=== PATIENT | female | born 1940 ===

== ENCOUNTER 2016-09-12 00:43 | Inpatient (IN) ==
[2016-09-12] MEDS ORDERED: ONDANSETRON 4 MG/2 ML VIAL IV STA (01:12)
[2016-09-12] MEDS ORDERED: methylPREDNISolone SOD SUC 125 MG/2 ML VIAL IV STA (01:12)
[2016-09-12] MEDS ORDERED: FUROSEMIDE 100 MG/10 ML VIAL IV STA (01:12)
[2016-09-12] MEDS ORDERED: ALBUTEROL/IPRATROPIUM 3 ML NEB RESP TX STA (01:12)
--- NOTE | 2016-09-12 01:34 | Emergency Department Note ---
ICristian Emily, am scribing for, and in the presence of, Issac Prather MD 01: 19. Crescencio Saunders Charles R, MD, personally performed the services described in this documentation, ascribed by Nubia Foster in my presence, and it is both accurate and complete . Arrival - Arrival Chief Complaint: Shortness of Breath Stated Complaint: shortness of breath ED Nursing Triage Note: pt transfered from [facility] for further evaluation of elevated troponin and SOB. O2 sat 98% on RA on arrival. pt denies CP on arrival. Pt was recently Dx with UTI with e-coli noted in urine and started on Levaquin PO today. O2 2L/nc applied for comfort. Mode of Arrival: Stretcher Limitations: Altered Mental Status Source: RN Notes Reviewed Time Seen by Provider: 09/12/16 00:51 - History of Present Illness HPI Narrative: Pt is a 76 y/o female who was transferred from [place] for further evaluation of elevated troponin and SOB. Pt's O2 sat 98% on room air on arrival. Pt denies chest pain. Pt was recently Dx with UTI with e-coli noted in urine and started on Levaquin PO today. Pt's creatnine looks good. PMHx of dementia. Onset (ago): hour(s) Consistency: constant Severity: moderate Severity scale (1-10): 5 Allergies/Adverse Reactions: Allergies Allergy/AdvReac Type Severity Reaction Status Date / Time No Known Allergies Allergy Unverified 09/12/16 01:01 Review of System - Review of System ROS unobtainable: due to mental status, due to dementia Medical,Surgical,& Family Hx - Medical History Cardio: History of: Hypertension Neurology: History of: Dementia Endocrine: History of: Diabetes Mellitus (IDDM) Respiratory: History of: Pulmonary Hypertension Genitourinary: History of: Recurring Urinary Tract Infections Musculoskeletal: History of: Musculoskeletal Problems (arthritis) Reproductive: History of: Breast Cancer (left) - Social History Smoking Status: Never smoker Frequency of Alcohol Use: None Type of Drug Use: None Exam Vital Signs: Vital Signs Temperature 98.0 F 09/12/16 00:47 Pulse Rate 64 09/12/16 01:00 Respiratory Rate 22 09/12/16 01:00 Blood Pressure 156/65 09/12/16 00:47 O2 Sat by Pulse Oximetry 98 09/12/16 00:47 - General General appearance: alert, in no apparent distress - Head Head exam: Present: atraumatic, normocephalic - Eye Eye exam: Present: PERRL, EOMI - ENT ENT exam: Present: mucous membranes moist. Absent: mucous membranes dry - Neck Neck exam: Present: full ROM. Absent: tenderness - Chest Chest inspection: Present: symmetric chest wall rise. Absent: tenderness - Respiratory Respiratory exam: Present: rales (bilateral), respiratory distress, rhonchi ( bilateral). Absent: normal lung sounds bilaterally - Cardiovascular Cardiovascular exam: Present: regular rate, normal rhythm, normal heart sounds - Extremities Exam Extremities exam: Absent: tenderness, pedal edema - Neurological Exam Neurological exam: Present: alert, CN II-XII intact, other (pleasantly confused at nml baseline). Absent: oriented X3, motor sensory deficit - Skin Skin exam: Present: warm, dry Course - Consultations Consultation #1: Hospitalist will admit patient Time: 01:32 Results - Labs Lab Results: I have reviewed the patients labs Labs: All previous labs reviewed from previous facility Critical Care Time Critical Care Time: Yes Total Critical Care Time: 60 Disposition Clinical Impression: Congestive heart failure, Acute exacerbation of chronic obstructive airways disease, Elevated troponin, UTI (urinary tract infection) Case discussed with: patient Disposition: Still a Patient Condition: Stable Time of Disposition: 01:31
[2016-09-12] MEDS ORDERED: ONDANSETRON 4 MG/2 ML VIAL ONE (01:39)
[2016-09-12] MEDS ORDERED: methylPREDNISolone SOD SUC 125 MG/2 ML VIAL ONE (01:39)
[2016-09-12] MEDS ORDERED: FUROSEMIDE 100 MG/10 ML VIAL ONE (01:39)
[2016-09-12 02:24] LABS: Basophils % 0.1 % (0.0-0.8); Eosinophils # 0.2 10*3/uL (0.0-0.87); Eosinophils % 2.2 % (0.00-10.9); Hematocrit 37.4 VOL% (35.7-47.0); Hemoglobin 11.7 GM/DL (12.0-16.0); Immature Granulocytes % 0.7 %; Immature Granulocytes Absolute 0.05 #; Lymphocytes # 1.2 10*3/uL (1.4-4.0); Lymphocytes % 17.1 % (21.3-54.2); Mean Corpuscular HGB Conc 31.3 GM/DL (32-36); Mean Corpuscular Hemoglobin 27 PG (27-34); Mean Corpuscular Volume 87.2 FL (87-102); Mean Platelet Volume 12.2 FL (9.6-12.0); Monocytes # 0.3 10*3/uL (0.11-0.8); Monocytes % 4.7 % (1.7-12.7); Neutrophils # 5.5 10*3/uL (1.4-7.4); Neutrophils % 75.2 % (38.7-73.9); Platelet Count 133 T/CUMM (130-400); Red Blood Count 4.29 MC/CUMM (3.8-5.5); Red Cell Distribution Width 16.1 % (9.3-17.3); White Blood Count 7.3 T/CUMM (4-12)
[2016-09-12 02:31] LABS: INR 1.1; PT Patient Result 11.5 SECS
[2016-09-12 02:32] LABS: Alanine Aminotransferase 95 U/L (13-56); Albumin 2.5 G/DL (3.4-5.0); Alkaline Phosphatase 174 U/L (45-117); Aspartate Amino Transferase 60 U/L (0-37); Bilirubin,Total < 0.39 MG/DL (0.2-1.0); Blood Urea Nitrogen 36 MG/DL (7-18); Calcium 9.7 MG/DL (8.5-10.1); Glucose 238 MG/DL (74-106); Magnesium 1.9 MG/DL (1.8-2.4); Osmolality,Calculated 296.3 MOS/KG (273-304); Potassium 3.7 MMOL/L (3.5-5.1); Sodium 141 MMOL/L (136-145); Total Protein 6.1 G/DL (6.4-8.3); Troponin I Only 0.032 NG/ML (0.00-0.045)
--- NOTE | 2016-09-12 03:11 | Hospitalist History & Physical ---
Assessment and Plan (1) Congestive heart failure Status: Acute Assessment and plan: I am concerned this could be secondary to either myocardial injury or acute coronary syndrome. Patient does have an elevated troponin. Serial troponins will be drawn she has been started on the full dose of Lovenox already and will continue check lipid panel in the morning consult cardiology on this case. We will obtain an echocardiogram to evaluate chamber status valvular status wall motion and left ventricular function. Repeat EKG in the morning. Current Visit: Yes (2) Acute exacerbation of chronic obstructive airways disease Status: Acute Assessment and plan: Continue bronchodilators and ipratropium bromide. Continue systemic steroids as ordered. Home medications are being reviewed and reconciled Current Visit: Yes (3) Elevated troponin level Status: Acute Assessment and plan: Check serial troponins. Attend to the orders for cardiac evaluation. Current Visit: Yes (4) Urinary tract infection Status: Acute Assessment and plan: Reportedly this was documented I took 2. However I am not apprised as to the information from they at this point. Documents were noted scanned into the computer. Emergency room sodium and he has continued the antibiotics of levofloxacin. Keep a close eye on the heart rhythm. Repeat UA in 48 hours. Current Visit: Yes History of Present Illness Chief complaint: Transfer from [place] [facility] elevated troponin History of present illness: Ms. Rausch is a 76 year old female who was transferred from [place] for further evaluation of elevated troponin and SOB. Pt's O2 sat 98% on room air on arrival. Pt denies chest pain. Pt was recently Dx with UTI with e-coli noted in urine and started on Levaquin PO today. Pt's creatnine looks good. PMHx of dementia. Patient looks tired and only significant tells me that she feels hungry. Denies any chest pain. Looks rather dehydrated with skin that is tenting. Is congested cough however with the production. Chest x-ray shows presence of a pacemaker on the right side one lead is in the ventricle I cannot define where the other leads and is however. Report of the chest x-ray is pending. EKG shows beats Allergies Allergy/AdvReac Type Severity Reaction Status Date / Time No Known Allergies Allergy Unverified 09/12/16 01:01 Medical,Surgical,& Family Hx - Medical History Cardio: History of: Hypertension Neurology: History of: Dementia Endocrine: History of: Diabetes Mellitus (IDDM) Respiratory: History of: Pulmonary Hypertension Genitourinary: History of: Recurring Urinary Tract Infections Musculoskeletal: History of: Musculoskeletal Problems (arthritis) Reproductive: History of: Breast Cancer (left) - Social History Smoking Status: Never smoker Frequency of Alcohol Use: None Type of Drug Use: None ROS unobtainable: due to dementia (On review of records it appears there is concern of possibility of non-ST elevation myocardial infarction possible pulmonary edema. Patient did receive some Lasix in normal emergency room. She does not have a Santizo catheter she is incontinent therefore does not know what response she did have. Also received some Solu-Medrol because she was wheezing at presentation) Exam - Constitutional General appearance: normal weight, other (Generalized weakness) - Head Head exam: Present: normocephalic, atraumatic - Eye Eye exam: Present: EOMI Pupils: Present: CESAR - ENT ENT exam: Present: normal oropharynx (Relative dry mucosa noted) - Neck Neck exam: Present: other (Neck is supple no jugular venous distention) - Respiratory Respiratory exam: Present: other (Bilateral crackles noted she was not wheezing at my assessment) - Cardiovascular Cardiovascular exam: Present: regular rate and rhythm (Regular rhythm with 100% paced beats on EKG) - GI/Abdominal GI/Abdominal exam: Present: normal bowel sounds, soft - Extremities Exam Extremities exam: Present: full ROM - Neurological Exam Neurological exam: Present: alert, oriented X3, CN II-XII intact - Psychiatric Psychiatric exam: Present: other (Subdued affect but she is able to answer questions) - Skin Skin exam: Present: normal color, warm, other (IC tenting of the skin and am concerned about possibility of dehydration however this could be exaggerated by cutis laxa of old age) Results - Labs CBC & BMP: 09/12/16 01:41 09/12/16 01:41 Lab Results: I have reviewed the past 24 hour labs (First troponin is 0.032 creatinine 1.0 I do not have a BNP; BUN of 36 with creatinine of 1 (pre-renal azotemia); appears document from the other institution were not scanned.)
[2016-09-12] MEDS ORDERED: MORPHINE 2 MG/1 ML SYRINGE IV PRN (04:12)
[2016-09-12] MEDS ORDERED: ALBUTEROL/IPRATROPIUM 3 ML NEB RESP TX PRN (04:12)
[2016-09-12] MEDS ORDERED: DEXTROSE 50% 25 GM/50 ML VIAL IV PRN (04:12)
[2016-09-12] MEDS ORDERED: GLUCAGON 1 MG VIAL IM PRN (04:12)
[2016-09-12] MEDS ORDERED: ONDANSETRON 4 MG/2 ML VIAL IV PRN (04:12)
[2016-09-12] MEDS ORDERED: ENOXAPARIN 40 MG/0.4 ML SYRINGE SUBCUT SCH (04:12)
[2016-09-12] MEDS: SODIUM CHLORIDE 0.9% 1,000 ML IV SCH (06:10)
[2016-09-12] MEDS: LEVOFLOXACIN INJ 500 MG in PREMIX 1 EACH IV SCH (06:10)
[2016-09-12] MEDS: NITROGLYCERIN 2% OINT 1 INCH/GM PACK TOP SCH ×3 (06:11→17:13)
[2016-09-12 07:05] LABS: Troponin I Only 0.025 NG/ML (0.00-0.045)
[2016-09-12 07:07] LABS: Troponin I Only 0.024 NG/ML (0.00-0.045)
--- NOTE | 2016-09-12 07:22 | XRay Report ---
Referring Physician: Issac Prather Exam: XR chest 1V portable Date: September 12, 2016 at 1:26 AM Reason: Shortness of breath Comparison: Chest single view September 11, 2016 Findings: The cardiac silhouette is again enlarged, and a cardiac pacing device is in place. There is prominent calcified plaque at the aortic arch. The interstitial markings are prominent, and there are mild bibasilar opacities. This is concerning for mild pulmonary edema and atelectasis, but superimposed pneumonia is not excluded at the right lung base. No pneumothorax or pleural effusion is identified. No acute osseous process is seen. Impression: 1. Cardiomegaly. 2. The interstitial markings are prominent, and there are mild bibasilar opacities. This likely represents mild pulmonary edema and atelectasis, but pneumonia is not excluded at the right lung base. PROCEDURE INTERPRETED AT [facility] DEPARTMENT OF RADIOLOGY Final Report Signed by: Dr. Cyndi Tinsley
--- NOTE | 2016-09-12 09:28 | EKG Report ---
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
[2016-09-12] MEDS: ENOXAPARIN 100 MG/ML SYRINGE SUBCUT SCH ×2 (09:43→22:13)
[2016-09-12] MEDS: PANTOPRAZOLE 40 MG TABLET PO SCH (09:43)
[2016-09-12] MEDS: FUROSEMIDE 40 MG/4 ML VIAL IV SCH ×2 (09:43→17:13)
[2016-09-12] MEDS: ASPIRIN EC 81 MG TABLET PO SCH (09:43)
[2016-09-12] MEDS: INSULIN REGULAR 100 UNIT/ML SUBCUT SCH ×4 (09:44→22:14)
[2016-09-12] MEDS: methylPREDNISolone SOD SUC 40 MG/1 ML VIAL IV SCH ×2 (09:44→17:13)
--- NOTE | 2016-09-12 16:04 | ECHO Report ---
Shahla Rausch Exam Date: 09/12/2016 10:12 Referring Physician: Technologist: Aga Braga RDCS Age: 76 Ht (in): 56 Wt (lb): 170 Gender: F Exam Location: [facility] Echo Indications: Heart failure, unspecified, COPD, UTI, Elevated troponin, Shortness of breath, Essential (primary) hypertension, IDDM, Weakness, hx Breast CA BP: 168 / 72 HR: 60 Rhythm: Atrial flutter Technical Quality: IMPRESSIONS Left ventricular ejection fraction is estimated at 50 %. Mild left ventricular hypertrophy. Mild bilateral atrial enlargement. Mild mitral annular calcification and mild mitral leaflet thickening with mild mitral regurgitation. Mild aortic valve sclerosis mild aortic valve regurgitation. Gqwd-ab-ybkbchwm tricuspid valve regurgitation. MEASUREMENTS (Male / Female) Normal Values 2D ECHO LV Diastolic Diameter PLAX 4.3 cm 4.2 - 5.9 / 3.9 - 5.3 cm LV Systolic Diameter PLAX 3.3 cm LV Fractional Shortening PLAX 22.8 % IVS Diastolic Thickness 1.1 cm 0.6 - 1.0 / 0.6 - 0.9 cm LVPW Diastolic Thickness 1.1 cm 0.6 - 1.0 / 0.6 - 0.9 cm RV Internal Dim ED PLAX 3.0 cm Aortic Root Diameter 3.5 cm LA Systolic Diameter LX 3.9 cm 3.0 - 4.0 / 2.7 - 3.8 cm DOPPLER TR Peak Velocity 285.0 cm/s TR Peak Gradient 32.5 mmHg FINDINGS Left Ventricle Normal left ventricular cavity size. Mild left ventricular hypertrophy. Left ventricular ejection fraction is estimated at 50 %. Right Ventricle Normal right ventricular size. Catheter/pacemaker wire visualized in the right ventricle. Right Atrium The right atrium is mildly enlarged. Catheter/pacemaker wire in the right atrial cavity. Left Atrium The left atrium is mildly enlarged. Mitral Valve Thickened mitral valve. Mild mitral annular calcification. Mild mitral valve regurgitation. Aortic Valve Mild aortic valve sclerosis mild aortic valve regurgitation. Tricuspid Valve Morphologically normal tricuspid valve. Qupy-zl-cthggtbj tricuspid valve regurgitation. Tricuspid regurgitation velocities suggest a PAP of 42 mmHg. Pulmonic Valve Morphologically normal pulmonic valve without significant stenosis. There is no pulmonic regurgitation. Pericardium Normal pericardium without effusion. Aorta Normal ascending aorta dimension. Jose Lam (Electronically Signed) Final Date: 12 Sep 2016 16:03
--- NOTE | 2016-09-12 16:30 | EKG Report ---
Stationary ECG Study 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
[2016-09-13] MEDS: methylPREDNISolone SOD SUC 40 MG/1 ML VIAL IV SCH ×3 (04:15→17:14)
[2016-09-13] MEDS: LEVOFLOXACIN INJ 500 MG in PREMIX 1 EACH IV SCH (04:16)
[2016-09-13] MEDS: NITROGLYCERIN 2% OINT 1 INCH/GM PACK TOP SCH ×4 (04:21→17:15)
[2016-09-13 04:43] LABS: Basophils % 0.1 % (0.0-0.8); Eosinophils % 0.1 % (0.00-10.9); Hematocrit 32.6 VOL% (35.7-47.0); Hemoglobin 10.5 GM/DL (12.0-16.0); Immature Granulocytes % 0.8 %; Lymphocytes # 1.2 10*3/uL (1.4-4.0); Mean Corpuscular HGB Conc 32.2 GM/DL (32-36); Mean Corpuscular Hemoglobin 28 PG (27-34); Mean Corpuscular Volume 85.6 FL (87-102); Mean Platelet Volume 12.3 FL (9.6-12.0); Monocytes # 0.7 10*3/uL (0.11-0.8); Monocytes % 5.7 % (1.7-12.7); Neutrophils # 9.8 10*3/uL (1.4-7.4); Neutrophils % 83.3 % (38.7-73.9); Platelet Count 148 T/CUMM (130-400); Red Blood Count 3.81 MC/CUMM (3.8-5.5); Red Cell Distribution Width 16.4 % (9.3-17.3); White Blood Count 11.8 T/CUMM (4-12)
[2016-09-13 05:18] LABS: Albumin 2.5 G/DL (3.4-5.0); Bilirubin,Total 0.5 MG/DL (0.2-1.0); Calcium 9.5 MG/DL (8.5-10.1); Magnesium 1.9 MG/DL (1.8-2.4); Potassium 3.7 MMOL/L (3.5-5.1); Risk Ratio 2.32; Total Protein 5.4 G/DL (6.4-8.3); VLDL CHOLESTEROL 30.2 MG/DL
--- NOTE | 2016-09-13 08:37 | XRay Report ---
Referring Physician: Issac Prather Exam: XR chest 1V portable Date: September 13, 2016 at 6:21 AM Reason: Shortness of breath Comparison: Chest one view portable September 12, 2016 Findings: The cardiac silhouette is again enlarged, and a cardiac pacing device is again in place with the battery pack at the right chest wall. There is also a left-sided cardiac lead, likely from a previous pacemaker. The interstitial markings are slightly prominent bilaterally, which is concerning for minimal pulmonary edema. No pneumothorax is identified. No acute osseous process is seen. Impression: 1. Cardiomegaly. 2. There is improved aeration of the right lung base, but there is suggestion of minimal pulmonary edema. PROCEDURE INTERPRETED AT [facility] DEPARTMENT OF RADIOLOGY Final Report Signed by: Dr. Cyndi Tinsley
[2016-09-13] MEDS: FUROSEMIDE 40 MG/4 ML VIAL IV SCH ×2 (08:59→17:14)
[2016-09-13] MEDS: ENOXAPARIN 100 MG/ML SYRINGE SUBCUT SCH ×2 (08:59→21:16)
[2016-09-13] MEDS: INSULIN REGULAR 100 UNIT/ML SUBCUT SCH ×4 (09:00→21:16)
[2016-09-13] MEDS: ASPIRIN EC 81 MG TABLET PO SCH (09:00)
[2016-09-13] MEDS: PANTOPRAZOLE 40 MG TABLET PO SCH (09:00)
[2016-09-13] MEDS ORDERED: ALBUTEROL 1.25 MG/3 ML NEB RESP TX PRN (09:31)
[2016-09-13] MEDS ORDERED: DOCUSATE/SENNA 50-8.6 MG TABLET PO PRN (09:31)
[2016-09-13] MEDS ORDERED: MIRTAZAPINE 15 MG TABLET PO PRN (09:31)
[2016-09-13] MEDS ORDERED: GABAPENTIN 100 MG CAPSULE PO PRN (09:31)
--- NOTE | 2016-09-13 09:37 | Cardiology Consult Note ---
[facility] Vanessa, RN, am scribing for, and in the presence of, Jose Lam MD 09:36. Assessment and Plan - Time spent with patient Time spent with patient: Greater than 30 minutes (due to assessment, planning, documentation, medication review) (1) Dementia Status: Acute Current Visit: Yes (2) Urinary tract infection Status: Acute Assessment and plan: History of recurrent UTI. She has had a recent urine culture positive for E. coli, and she has been started on Levaquin 10 days. Defer primary management of this to hospital medicine. Current Visit: Yes (3) Congestive heart failure Status: Acute Assessment and plan: Mildly elevated BNP level 312. Echocardiogram with mild LVH and LV ejection fraction 50%, mild to moderate TR and pulmonary hypertension with a PA pressure of 42 mmHg. clinically she seems well compensated. Current Visit: Yes (4) Troponin I above reference range Status: Acute Assessment and plan: She has normal troponin levels and no obvious symptoms of ischemia. Given her degree of dementia and lack of acute EKG changes I don't think I would pursue any additional cardiac workup right now. Current Visit: Yes (5) Atrial fibrillation Status: Chronic Assessment and plan: This is chronic and stable. Current Visit: Yes (6) Hypertension Status: Chronic Assessment and plan: Pressure is suboptimally controlled. Will need medication adjustments. Current Visit: Yes History of Present Illness - Data of Consult Patient: known to practice within the last 3 years Consult date: 09/12/16 Requesting Physician: Leland Mary Primary care physician: [facility] - Consult Narrative Reason for consult: CHF, abnormal CTNI History of present illness: PRIMARY STATION SUPERINTENDENT: DR. ELIGIO PARKER PCP: [facility] Ms. Rausch is a 76 year old female resident of [facility] skilled nursing. Past medical history includes hypertension, diabetes, tachybradycardia syndrome status post single-chamber pacemaker implant , atrial fibrillation, chronic anticoagulation, valvular disease, pulmonary hypertension, peripheral neuropathy, and Alzheimer's dementia. Patient was transferred from [facility] to [facility] ER on the morning of 09/12/16 for further evaluation of shortness of breath and troponin level of 0.12. At [facility], it was reported that she had coarse breath sounds, wheezing, and use of accessory muscles. Apparently, she has had a recent urine culture positive for E. coli, and she was started on Levaquin for UTI. Patient was in no acute distress with SPO2 of 98% on room air. Chest x- ray with prominent interstitial markings and mild bibasilar opacities suggestive of mild pulmonary edema and/or r atelectasis, but pneumonia at right lung base could not be excluded. Patient was admitted to telemetry per hospital medicine for further observation and treatment. Lab work at [facility] has revealed BNP of 312 and normal troponin level (0.032, 0.024). Cardiology has been consulted to evaluate for congestive heart failure and abnormal troponin levels. Ms. Rausch has significant dementia, does not conversation much, and she is a very poor historian. There is no family present at time of exam and interview. ROS unobtainable. She she is awake and alert, sitting on chicken broth, and she does not appear to be in any acute distress. When I asked her if she has experienced any recent or current chest pain, patient points to her chest and says "no hurt". Echocardiogram has been obtained, and we will review this. Currently wearing Nitro-Bid patch to left chest. She has been started on IV Lasix therapy, and a Santizo catheter has recently been placed to closely monitor I/O. She is also receiving nebulizer treatments, IV Solu-Medrol, and IV Levaquin. Per inspector chief, she is ventricularly pacing and appears to have underlying atrial flutter. Systolic blood pressure averaging 140-190 mmHg. Current BP 138/51. Labs reviewed. As above. WBC 7300. H&H stable 11.7 and 37.4 with a platelet count of 133,000 (old records indicate history of thrombocytopenia). Creatinine is 1 with a GFR of 52. Glucose levels greater than 200. Current Medications Albuterol/Ipratropium (Duoneb) 3 ml RESP TX RT Q4H PRN PRN Reason: Shortness of Breath/Wheezing Aspirin () 81 mg PO DAILY [facility] Last Admin: 09/12/16 09:43 Dose: 81 mg Dextrose/Water (D50) 25 gm IV PRN PRN PRN Reason: Hypoglycemia with IV access Enoxaparin Sodium (Lovenox) 80 mg 1 mg/kg (80 mg) SUBCUT Q12H [facility] Last Admin: 09/12/16 09:43 Dose: 80 mg Furosemide (Lasix Inj) 40 mg IV BID DIURETIC [facility] Last Admin: 09/12/16 09:43 Dose: 40 mg Glucagon () 1 mg IM PRN PRN PRN Reason: Hypoglycemia w/o IV access Levofloxacin/Dextrose 500 mg/ (Premix) 100 mls @ 100 mls/hr IV Q24H [facility] Last Infusion: 09/12/16 07:19 Dose: Infused Sodium Chloride (Ns) 1,000 mls @ 35 mls/hr IV .Q24H [facility] Last Admin: 09/12/16 06:10 Dose: 35 mls/hr Insulin Human Regular (Humulin R) 0 unit SUBCUT ACHS [place] PRN Reason: Protocol Last Admin: 09/12/16 14:33 Dose: Not Given Methylprednisolone Sodium Succinate (Solumedrol) 40 mg IV Q8H [facility] Last Admin: 09/12/16 09:44 Dose: 40 mg Morphine Sulfate () 2 mg IV Q4H PRN PRN Reason: Pain Severe (8-10) Nitroglycerin (Nitro Bid Oint) 0.5 inch TOP Q6HR [facility] Last Admin: 09/12/16 13:33 Dose: 0.5 inch Ondansetron HCl (Zofran Inj) 4 mg IV Q4H PRN PRN Reason: Nausea Pantoprazole Sodium (Protonix Tab) 40 mg PO DAILY [facility] Last Admin: 09/12/16 09:43 Dose: 40 mg CC: Cy Hodges MD - Home Medications and Allergies Home Medications: Home Medications Medication Instructions Recorded Confirmed Type Albuterol Neb [Proventil Neb] 1.25 mg RESP TX Q4H PRN 09/12/16 09/12/16 History Calcium Carbonate/Vitamin D3 1 each PO BID 09/12/16 09/12/16 History [Calcium 600 + Vit D Tablet] Carvedilol [Coreg] 12.5 mg PO BID 09/12/16 09/12/16 History Cholecalciferol (Vitamin D3) 50,000 unit PO MO 09/12/16 09/12/16 History [Vitamin D3] Docusate/Senna 50-8.6 [Senokot S] 2 tablet PO BEDTIME PRN 09/12/16 09/12/16 History Dorzolamide/Timolol Oph Soln 1 drop BOTH EYES BID 09/12/16 09/12/16 History [Cosopt] Furosemide 20 mg PO DAILY 09/12/16 09/12/16 History Gabapentin 100 mg PO BEDTIME PRN 09/12/16 09/12/16 History Insulin Detemir [Levemir] 20 units SUBCUT BEDTIME 09/12/16 09/12/16 History Insulin Lispro [HumaLOG] 10 units SUBCUT AC 09/12/16 09/12/16 History Latanoprost 0.005% Oph Soln 1 drop BOTH EYES BEDTIME 09/12/16 09/12/16 History [Xalatan 0.005% Oph Soln] Lisinopril 20 mg PO DAILY 09/12/16 09/12/16 History Mirtazapine [Remeron] 15 mg PO BEDTIME PRN 09/12/16 09/12/16 History Oxybutynin [Ditropan] 5 mg PO DAILY 09/12/16 09/12/16 History Sertraline [Zoloft] 100 mg PO DAILY 09/12/16 09/12/16 History Simvastatin 10 mg PO BEDTIME 09/12/16 09/12/16 History Tamoxifen Tab [Nolvadex] 10 mg PO BID 09/12/16 09/12/16 History amLODIPine [Norvasc] 10 mg PO DAILY 09/12/16 09/12/16 History levoFLOXacin [Levaquin] 250 mg PO DAILY 09/12/16 09/12/16 History metFORMIN [Glucophage] 500 mg PO BID W/MEALS 09/12/16 09/12/16 History predniSONE TAB [PredniSONE] 20 mg PO DAILY 09/12/16 09/12/16 History raNITIdine HCl [Ranitidine HCl] 150 mg PO BEDTIME PRN 09/12/16 09/12/16 History Allergies/Adverse Reactions: Allergies Allergy/AdvReac Type Severity Reaction Status Date / Time No Known Allergies Allergy Unverified 09/12/16 01:01 ROS unobtainable: due to dementia Medical,Surgical,& Family Hx - Medical History Cardio: History of: Cardiac Dysrhythmia, Hypertension, Pacemaker (Right chest), Valvular Heart Disease No history of: RI Psychological: History of: Anxiety Disorders, Depression Neurology: History of: Dementia No history of: Cerebrovascular Accident, Seizures, TIA Endocrine: History of: Diabetes Mellitus (IDDM), Dyslipidemia No history of: Thyroid Disorder Respiratory: History of: COPD, Pulmonary Hypertension Genitourinary: History of: Recurring Urinary Tract Infections Gastrointestinal: History of: GERD Musculoskeletal: History of: Musculoskeletal Problems (arthritis) Hematology: History of: Anemia No history of: Blood Transfusion Reaction Reproductive: History of: Breast Cancer (left) Other: No history of: Cancer - Surgical History Neurologic Surgeries: Patient denies: Neurologic Surgery - Social History Smoking Status: Never smoker Frequency of Alcohol Use: None Type of Drug Use: None Physical Examination Vital Signs Temp Pulse Resp BP Pulse Ox 98.0 F 64 22 156/65 98 09/12/16 00:47 09/12/16 00:47 09/12/16 00:47 09/12/16 00:47 09/12/16 00:47 General: Present: No Apparent Distress, Other (Appears chronically ill) HEENT: Present: PERRL, Normocephaly, Mucus Membranes Dry. Absent: Jaundice, Pallor Neck: Present: Supple Neck, Midline Trachea Cardiac: Present: Reg Rate and Rhythm. Absent: Tachycardia, Bradycardia Lungs: Present: Bibasilar Rales (Minimal). Absent: Oxygen Neuro: Present: Weakness, Grossly Intact. Absent: Numbness, Essential Tremor Abdomen: Present: Soft, Active Bowel Sounds. Absent: Ascites, Tender, Firm Skin: Present: Bruising (Mild ecchymotic bruising). Absent: Rash, Suspicious Lesions Musculoskeletal: Present: Decreased Range of Motion, No Fluid Collection Extremities: Present: No Clubbing, No Cyanosis, No Edema, Normal Upper Extr. Pulses (2-3+ bilaterally), Normal Lower Extr. Pulses (2-3+ bilateral), Capillary Refill (Normal) Result/EKG - Labs CBC & BMP: 09/13/16 04:16 09/13/16 04:16 Lab Results: I have reviewed the past 24 hour labs Labs: Laboratory Results - last 24 hr 09/12/16 09/12/16 09/12/16 05:58 05:58 07:02 POC Glucose 245 H Total Creatine Kinase 22 L 43 CK-MB (CK-2) 1.4 1.7 Troponin I 0.025 0.024 09/12/16 09/12/16 08:36 11:29 POC Glucose 243 H 221 H Total Creatine Kinase CK-MB (CK-2) Troponin I - Diagnostic Findings Procedure: Chest x-ray: image reviewed by me, report reviewed by me - EKG EKG results: interpreted by me (ventricularly paced rhythm) I, Jose Lam MD, personally performed the services described in this documentation, ascribed by Gabby Saab RN in my presence, and it is both accurate and complete .
--- NOTE | 2016-09-13 09:38 | Hospitalist Progress Note ---
Assessment and Plan (1) Acute exacerbation of chronic obstructive airways disease Status: Acute Current Visit: Yes (2) Congestive heart failure Status: Acute Assessment and plan: We will continue with diuretics and attempt to improve the patient shortness of breath. The patient is receiving IV antibiotics. Current Visit: Yes (3) Dementia Status: Chronic Current Visit: Yes Hospitalist: Subjective Interval history: The patient is admitted to the floor with some anxiety and shortness of breath. She is a resident at [facility]. The patient was admitted and diuresis was begun chest x-ray shows evidence of pulmonary edema and troponin had kan zone elevation. The patient does not complain of chest pain or palpitations at this time. Exam - Constitutional Vitals: Period Temp Pulse Resp BP Sys/Chang Pulse Ox Last 24 Hr 96.8 F-99.2 F 58-84 16-20 131-199/51-85 88-96 Exam: Constitutional System: Mild distress. Bewildered appearance Head: Normocephalic, atraumatic. Ears, Nose and Throat System: No evidence of Otitis or Mastoiditis. No epistaxis or discharge Eyes System: Pupils equal, round, and reactive. Extraocular muscles intact. Neck: Supple, without adenopathy, trace jugular venous distention. No thyromegaly, neck mass, or prior surgery apparent. Respiratory System: Chest clear to auscultation. Left mastectomy Cardiovascular System: Heart with regular rate and rhythm. No murmur. GI System: Abdomen soft, nontender. Normo active bowel sounds present. Musculoskeletal System: limbs with trace pedal edema. Full distal pulses. Neurological System: No discernable sensory deficit. No aphasia Psychiatric System: Conversation is confused Results - Labs CBC & BMP: 09/13/16 04:16 09/13/16 04:16 Lab Results: I have reviewed the past 24 hour labs
[2016-09-13] MEDS: CARVEDILOL 12.5 MG TABLET PO SCH ×2 (09:50→21:15)
[2016-09-13] MEDS: SODIUM CHLORIDE 0.9% 1,000 ML IV SCH (10:05)
[2016-09-13] MEDS: DORZOLAMIDE/TIMOLOL OPH SOLN 10 ML BOTTLE BOTH EYES SCH ×2 (11:50→21:15)
--- NOTE | 2016-09-13 11:53 | Cardiology Progress Note ---
[facility] Vanessa, RN, am scribing for, and in the presence of, Jose Lam MD 11:52. Assessment and Plan - Time spent with patient Time spent with patient: Greater than 30 minutes (1) Dementia Status: Chronic Assessment and plan: Known history Alzheimer's dementia. Today she is more alert, appropriate, but she is pleasantly confused. Current Visit: Yes (2) Congestive heart failure Status: Acute Assessment and plan: Mildly elevated BNP level 312. Echocardiogram with mild LVH and LV ejection fraction 50%, mild to moderate TR and pulmonary hypertension with a PA pressure of 42 mmHg. Clinically, patient appears to remain well compensated. Current Visit: Yes (3) Troponin I above reference range Status: Acute Assessment and plan: Troponin levels and normal and EKG without ischemic finding. Given patient's significant degree of dementia and lack of EKG change, I do not feel it necessary to pursue additional cardiac workup at this time. Current Visit: Yes (4) Urinary tract infection Status: Acute Assessment and plan: History of recurrent UTI. She has had a recent urine culture positive for E. coli, and she has been started on Levaquin 10 days. Defer primary management of this to hospital medicine. Current Visit: Yes (5) Atrial fibrillation Status: Chronic Assessment and plan: This is chronic and stable. Current Visit: Yes (6) Hypertension Status: Chronic Assessment and plan: Blood pressure with some improvement today. Beta helen therapy resumed today. 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 Rausch is a 76 year old female resident of [facility]. Past medical history includes hypertension, diabetes, tachybradycardia syndrome status post single-chamber pacemaker implant , atrial fibrillation, chronic anticoagulation, valvular disease, pulmonary hypertension, peripheral neuropathy, and Alzheimer's dementia. Patient was transferred from [facility] to [place]'s ER on the morning of 09/12/16 for further evaluation of shortness of breath and troponin level of 0.12. At [facility], it was reported that she had coarse breath sounds, wheezing, and use of accessory muscles. Apparently, she has had a recent urine culture positive for E. coli, and she was started on Levaquin for UTI. Patient was in no acute distress with SPO2 of 98% on room air. Chest x- ray with prominent interstitial markings and mild bibasilar opacities suggestive of mild pulmonary edema and/or r atelectasis, but pneumonia at right lung base could not be excluded. Patient was admitted to telemetry per hospital medicine for further observation and treatment. Lab work at [facility] has revealed BNP of 312 and normal troponin level (0.032, 0.024). Her BNP is down today. Cardiology was consulted to evaluate for congestive heart failure and abnormal troponin levels. Today, Ms. Rausch is awake and appears more alert today but still pleasantly confused. She does not appear to be in any acute distress, and states, "I am fine." She denies any cardiac related symptoms today. Vitals have been stable overnight. Paced rhythm per tele monitoring without overt ectopy or dysrhythmia. Labs reviewed. WBC 11,800. H/H 10.5 & 32.6. Sodium 143. Potassium 3.7. Magnesium 1.9. Current Medications Albuterol Sulfate (Proventil Neb) 1.25 mg RESP TX Q4H PRN PRN Reason: Shortness of Breath/Wheezing Albuterol/Ipratropium (Duoneb) 3 ml RESP TX RT Q4H PRN PRN Reason: Shortness of Breath/Wheezing Amlodipine Besylate (Norvasc) 10 mg PO DAILY COUNTS INCLUDE 234 BEDS AT THE [facility] Aspirin () 81 mg PO DAILY COUNTS INCLUDE 234 BEDS AT THE [facility] Last Admin: 09/13/16 09:00 Dose: 81 mg Carvedilol (Coreg) 12.5 mg PO BID COUNTS INCLUDE 234 BEDS AT THE [facility] Last Admin: 09/13/16 09:50 Dose: 12.5 mg Dextrose/Water (D50) 25 gm IV PRN PRN PRN Reason: Hypoglycemia with IV access Dorzolamide/Timolol (Cosopt) 1 drop BOTH EYES BID COUNTS INCLUDE 234 BEDS AT THE [facility] Enoxaparin Sodium (Lovenox) 80 mg 1 mg/kg (80 mg) SUBCUT Q12H COUNTS INCLUDE 234 BEDS AT THE [facility] Last Admin: 09/13/16 08:59 Dose: 80 mg Furosemide (Lasix Inj) 40 mg IV BID DIURETIC COUNTS INCLUDE 234 BEDS AT THE [facility] Last Admin: 09/13/16 08:59 Dose: 40 mg Gabapentin (Neurontin Cap/Tab) 100 mg PO BEDTIME PRN PRN Reason: neuropathy Glucagon () 1 mg IM PRN PRN PRN Reason: Hypoglycemia w/o IV access Levofloxacin/Dextrose 500 mg/ (Premix) 100 mls @ 100 mls/hr IV Q24H COUNTS INCLUDE 234 BEDS AT THE [facility] Last Infusion: 09/13/16 09:06 Dose: Infused Sodium Chloride (Ns) 1,000 mls @ 35 mls/hr IV .Q24H COUNTS INCLUDE 234 BEDS AT THE [facility] Last Admin: 09/13/16 10:05 Dose: Not Given Insulin Glargine (Lantus) 20 unit SUBCUT BEDTIME COUNTS INCLUDE 234 BEDS AT THE [facility] Insulin Human Regular (Humulin R) 0 unit SUBCUT ACHS CLARITA PRN Reason: Protocol Last Admin: 09/13/16 09:00 Dose: 9 unit Latanoprost (Xalatan) 1 drop BOTH EYES BEDTIME COUNTS INCLUDE 234 BEDS AT THE [facility] Metformin HCl (Glucophage) 500 mg PO BID W/MEALS COUNTS INCLUDE 234 BEDS AT THE [facility] Methylprednisolone Sodium Succinate (Solumedrol) 40 mg IV Q8H COUNTS INCLUDE 234 BEDS AT THE [facility] Last Admin: 09/13/16 09:00 Dose: 40 mg Mirtazapine (Remeron) 15 mg PO BEDTIME PRN PRN Reason: Sleep Morphine Sulfate () 2 mg IV Q4H PRN PRN Reason: Pain Severe (8-10) Nitroglycerin (Nitro Bid Oint) 0.5 inch TOP Q6HR COUNTS INCLUDE 234 BEDS AT THE [facility] Last Admin: 09/13/16 06:15 Dose: 0.5 inch Ondansetron HCl (Zofran Inj) 4 mg IV Q4H PRN PRN Reason: Nausea Pantoprazole Sodium (Protonix Tab) 40 mg PO DAILY COUNTS INCLUDE 234 BEDS AT THE [facility] Last Admin: 09/13/16 09:00 Dose: 40 mg Prednisone () 20 mg PO DAILY COUNTS INCLUDE 234 BEDS AT THE [facility] Senna/Docusate Sodium (Senokot S) 2 tablet PO BEDTIME PRN PRN Reason: Constipation Tamoxifen Citrate (Nolvadex) 10 mg PO BID COUNTS INCLUDE 234 BEDS AT THE [facility] Exam (Progress Note) - Constitutional Vitals: Period Temp Pulse Resp BP Sys/Chang Pulse Ox Last 24 Hr 96.8 F-99.2 F 58-84 16-20 131-199/51-85 88-96 Exam: General: Present: No Apparent Distress, Other (Appears chronically ill) HEENT: Present: PERRL, Normocephaly, Mucus Membranes Dry. Absent: Jaundice, Pallor Neck: Present: Supple Neck, Midline Trachea Cardiac: Present: Reg Rate and Rhythm. Absent: Tachycardia, Bradycardia Lungs: Present: Bibasilar Rales (Minimal;improved from previous exam). Absent: Oxygen Neuro: Present: Weakness, Grossly Intact. Absent: Numbness, Essential Tremor Abdomen: Present: Soft, Active Bowel Sounds. Absent: Ascites, Tender, Firm Skin: Present: Bruising (Mild ecchymotic bruising of BUE's). Absent: Rash, Suspicious Lesions Musculoskeletal: Present: Decreased Range of Motion, No Fluid Collection Extremities: Present: No Clubbing, No Cyanosis, No Edema, Normal Upper Extr. Pulses (2-3+ bilaterally), Normal Lower Extr. Pulses (2-3+ bilateral), Capillary Refill (Normal) Result/EKG - Labs CBC & BMP: 09/13/16 04:16 09/13/16 04:16 Lab Results: I have reviewed the past 24 hour labs Labs: Laboratory Results - last 24 hr 09/12/16 09/12/16 09/13/16 11:29 17:25 04:16 WBC 11.8 D RBC 3.81 Hgb 10.5 L Hct 32.6 L MCV 85.6 L MCH 28 MCHC 32.2 RDW 16.4 Plt Count 148 MPV 12.3 H Neut % (Auto) 83.3 H Lymph % (Auto) 10.0 L Barber % (Auto) 5.7 Eos % (Auto) 0.1 Baso % (Auto) 0.1 Neut # (Auto) 9.8 H Lymph # (Auto) 1.2 L Barber # (Auto) 0.7 Eos # (Auto) 0.0 Baso # (Auto) 0.0 Immature Gran % 0.8 Nucleated RBC % 0.0 Immature Gran # 0.10 Nucleated RBCs # 0.00 Sodium Potassium Chloride Carbon Dioxide Anion Gap BUN Creatinine GFR Calculation BUN/Creatinine Ratio Glucose POC Glucose 221 H 240 H Calculated Osmolality Calcium Magnesium Total Bilirubin AST ALT Alkaline Phosphatase B-Natriuretic Peptide Total Protein Albumin Globulin Albumin/Globulin Ratio Triglycerides Cholesterol LDL Cholesterol VLDL Cholesterol HDL Cholesterol Heart Disease Risk Ratio 09/13/16 09/13/16 09/13/16 04:16 04:16 07:05 WBC RBC Hgb Hct MCV MCH MCHC RDW Plt Count MPV Neut % (Auto) Lymph % (Auto) Barber % (Auto) Eos % (Auto) Baso % (Auto) Neut # (Auto) Lymph # (Auto) Barber # (Auto) Eos # (Auto) Baso # (Auto) Immature Gran % Nucleated RBC % Immature Gran # Nucleated RBCs # Sodium 143 Potassium 3.7 Chloride 106 Carbon Dioxide 28 Anion Gap 12.7 BUN 42 H Creatinine 1.20 H GFR Calculation 41 BUN/Creatinine Ratio 35.00 H Glucose 235 H POC Glucose 297 H Calculated Osmolality 303.0 Calcium 9.5 Magnesium 1.9 Total Bilirubin 0.50 AST 39 H ALT 63 H Alkaline Phosphatase 118 H B-Natriuretic Peptide 122 H Total Protein 5.4 L Albumin 2.5 L Globulin 2.9 Albumin/Globulin Ratio 0.8 L Triglycerides 151 H Cholesterol 139 LDL Cholesterol 66.0 VLDL Cholesterol 30.2 HDL Cholesterol 60 Heart Disease Risk Ratio 2.32 09/13/16 11:08 WBC RBC Hgb Hct MCV MCH MCHC RDW Plt Count MPV Neut % (Auto) Lymph % (Auto) Barber % (Auto) Eos % (Auto) Baso % (Auto) Neut # (Auto) Lymph # (Auto) Barber # (Auto) Eos # (Auto) Baso # (Auto) Immature Gran % Nucleated RBC % Immature Gran # Nucleated RBCs # Sodium Potassium Chloride Carbon Dioxide Anion Gap BUN Creatinine GFR Calculation BUN/Creatinine Ratio Glucose POC Glucose 383 H Calculated Osmolality Calcium Magnesium Total Bilirubin AST ALT Alkaline Phosphatase B-Natriuretic Peptide Total Protein Albumin Globulin Albumin/Globulin Ratio Triglycerides Cholesterol LDL Cholesterol VLDL Cholesterol HDL Cholesterol Heart Disease Risk Ratio - Diagnostic Findings Procedure: Chest x-ray: image reviewed by me, report reviewed by me (09/13/16: improved aeration at right lung base. possibly minimal pulmonary edema) - EKG EKG results: interpreted by me, no acute changes Genaro Saunders Michael, MD, personally performed the services described in this documentation, ascribed by Gabby Saab RN in my presence, and it is both accurate and complete .
[2016-09-13] MEDS: metFORMIN 500 MG TABLET PO SCH (17:14)
[2016-09-13] MEDS: TAMOXIFEN 10 MG TABLET PO SCH (21:15)
[2016-09-13] MEDS: INSULIN GLARGINE 100 UNIT/ML SUBCUT SCH (21:17)
[2016-09-13] MEDS: LATANOPROST 0.005% OPH SOLN 2.5 ML BOTTLE BOTH EYES SCH (23:54)
[2016-09-14] MEDS: NITROGLYCERIN 2% OINT 1 INCH/GM PACK TOP SCH ×5 (01:05→23:51)
[2016-09-14] MEDS: methylPREDNISolone SOD SUC 40 MG/1 ML VIAL IV SCH ×2 (01:05→09:37)
[2016-09-14 05:53] LABS: Hematocrit 34.8 VOL% (35.7-47.0); Hemoglobin 11.1 GM/DL (12.0-16.0); Immature Granulocytes % 0.7 %; Immature Granulocytes Absolute 0.06 #; Lymphocytes # 0.5 10*3/uL (1.4-4.0); Lymphocytes % 5.4 % (21.3-54.2); Mean Corpuscular HGB Conc 31.9 GM/DL (32-36); Mean Corpuscular Hemoglobin 28 PG (27-34); Mean Corpuscular Volume 86.4 FL (87-102); Mean Platelet Volume 12.1 FL (9.6-12.0); Monocytes # 0.2 10*3/uL (0.11-0.8); Neutrophils # 8.2 10*3/uL (1.4-7.4); Neutrophils % 91.9 % (38.7-73.9); Platelet Count 132 T/CUMM (130-400); Red Blood Count 4.03 MC/CUMM (3.8-5.5); White Blood Count 8.9 T/CUMM (4-12)
[2016-09-14] MEDS: LEVOFLOXACIN INJ 500 MG in PREMIX 1 EACH IV SCH (06:03)
[2016-09-14 06:22] LABS: Hypochromasia 1+; Lymphocytes 4 % (20-55); Microcytosis 1+; Ovalocytes Slight; Platelet Estimate Adequate; Segmented Neutrophils 93 % (50-85); Total Cells Counted 100
[2016-09-14 06:30] LABS: Calcium 9.3 MG/DL (8.5-10.1); Magnesium 1.9 MG/DL (1.8-2.4); Osmolality,Calculated 305.4 MOS/KG (273-304); Potassium 4.1 MMOL/L (3.5-5.1); Troponin I Only 0.02 NG/ML (0.00-0.045)
[2016-09-14] MEDS: SODIUM CHLORIDE 0.9% 1,000 ML IV SCH (09:36)
[2016-09-14] MEDS: INSULIN REGULAR 100 UNIT/ML SUBCUT SCH ×4 (09:37→21:21)
[2016-09-14] MEDS: PANTOPRAZOLE 40 MG TABLET PO SCH (09:37)
[2016-09-14] MEDS: metFORMIN 500 MG TABLET PO SCH ×2 (09:37→17:59)
[2016-09-14] MEDS: TAMOXIFEN 10 MG TABLET PO SCH ×2 (09:37→21:17)
[2016-09-14] MEDS: amLODIPine 10 MG TABLET PO SCH (09:37)
[2016-09-14] MEDS: CARVEDILOL 12.5 MG TABLET PO SCH ×2 (09:37→21:17)
[2016-09-14] MEDS: ASPIRIN EC 81 MG TABLET PO SCH (09:37)
[2016-09-14] MEDS: FUROSEMIDE 40 MG/4 ML VIAL IV SCH (09:38)
[2016-09-14] MEDS: ENOXAPARIN 100 MG/ML SYRINGE SUBCUT SCH (09:38)
[2016-09-14] MEDS: predniSONE 20 MG TABLET PO SCH (09:44)
[2016-09-14] MEDS: DORZOLAMIDE/TIMOLOL OPH SOLN 10 ML BOTTLE BOTH EYES SCH ×2 (09:44→21:22)
--- NOTE | 2016-09-14 12:07 | Physician Query Form ---
CLICK EDIT DOCUMENT TO SELECT QUERY ANSWER --> OK --> SIGN Abida Crespo RN Clinical Ortho Tech W) [phone] (f) [phone] [email or web address] PROVIDERS: Make your selection(s) from the choices in EACH section by typing an "x" and enter comments in the comment section. Please use your independent medical judgment in providing your response. This request does not imply that any particular answer is desired or expected. CLINICAL INDICATORS: (Providers should not edit this section) Based on documentation of "acute CHF", BUR=[id number], ECHO showed EF of 50%, treated with IV Lasix. Please provide further specificity regarding CHF. TYPE: ( ) Systolic (X ) Diastolic ( ) Combined Systolic/Diastolic ( ) Other, please specify: ( ) Clinically unable to determine ( ) The patient does NOT have CHF COMMENTS: Use of terms such as suspected, likely, or probable (associated with a specific diagnosis that is being evaluated, monitored, or treated as if it exists) are acceptable and can be restated in the discharge summary if not ruled out. [facility]
--- NOTE | 2016-09-14 12:10 | Cardiology Progress Note ---
[facility] Vanessa, RN, am scribing for, and in the presence of, Jose Lam MD 12:07. Assessment and Plan - Time spent with patient Time spent with patient: Greater than 30 minutes (1) Dementia Status: Chronic Assessment and plan: Known history Alzheimer's dementia. She is pleasantly confused, but she is awake and alert. Current Visit: Yes (2) Congestive heart failure Status: Acute Assessment and plan: Mildly elevated BNP of 233 this morning. Echocardiogram shows mild LVH with LV ejection fraction 50%, mild to moderate TR and pulmonary hypertension with a PA pressure of 42 mmHg. Clinically, she continues to appear well compensated. Current Visit: Yes (3) Troponin I above reference range Status: Acute Assessment and plan: Continues to have normal troponin levels, and EKG is without ischemic changes. She has no obvious clinical symptoms of angina. Given her dementia and debility , and benign-appearing cardiac workup thus far, I would not pursue additional cardiac evaluation at this time. Current Visit: Yes (4) Urinary tract infection Status: Acute Assessment and plan: This is recurrent. Antibiotic treatment. Defer primary management to hospital medicine. Current Visit: Yes (5) Atrial fibrillation Status: Chronic Assessment and plan: This is chronic and remains stable. Current Visit: Yes (6) Hypertension Status: Chronic Assessment and plan: Blood pressure is suboptimally controlled. 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 Rausch is a 76 year old female resident of [facility] assisted. Past medical history includes hypertension, diabetes, tachybradycardia syndrome status post single-chamber pacemaker implant , atrial fibrillation, chronic anticoagulation, valvular disease, pulmonary hypertension, peripheral neuropathy, and Alzheimer's dementia. Patient was transferred from [facility] to [place]'s ER on the morning of 09/12/16 for further evaluation of shortness of breath and troponin level of 0.12. At [facility], it was reported that she had coarse breath sounds, wheezing, and use of accessory muscles. Apparently, she has had a recent urine culture positive for E. coli, and she was started on Levaquin for UTI. Patient was in no acute distress with SPO2 of 98% on room air. Chest x- ray with prominent interstitial markings and mild bibasilar opacities suggestive of mild pulmonary edema and/or r atelectasis, but pneumonia at right lung base could not be excluded. Patient was admitted to telemetry per hospital medicine for further observation and treatment. Lab work at [facility] has revealed BNP of 312 and normal troponin level (0.032, 0.024). Her BNP is down today. Cardiology was consulted to evaluate for congestive heart failure and abnormal troponin levels. There have been no acute changes or new findings in patient's hemodynamic status overnight. This morning, she is resting quietly without distress noted. She is awake, calm, and pleasantly confused today. Vital signs have been stable. She has atrially pacing per review of cardiac monitor and has underlying atrial fib/flutter. Labs reviewed. WBC 8900 H&H stable at 11.1 34.8. Potassium is 4.1, and magnesium is 1.9. Glucose uncontrolled and ranging in the 300s-400s today. BMP minimally elevated to 233 today (122 yesterday). Current Medications Albuterol Sulfate (Proventil Neb) 1.25 mg RESP TX Q4H PRN PRN Reason: Shortness of Breath/Wheezing Albuterol/Ipratropium (Duoneb) 3 ml RESP TX RT Q4H PRN PRN Reason: Shortness of Breath/Wheezing Amlodipine Besylate (Norvasc) 10 mg PO DAILY [facility] Last Admin: 09/14/16 09:37 Dose: 10 mg Aspirin () 81 mg PO DAILY [facility] Last Admin: 09/14/16 09:37 Dose: 81 mg Carvedilol (Coreg) 12.5 mg PO BID [facility] Last Admin: 09/14/16 09:37 Dose: 12.5 mg Dextrose/Water (D50) 25 gm IV PRN PRN PRN Reason: Hypoglycemia with IV access Dorzolamide/Timolol (Cosopt) 1 drop BOTH EYES BID [facility] Last Admin: 09/14/16 09:44 Dose: 1 drop Enoxaparin Sodium (Lovenox) 80 mg 1 mg/kg (80 mg) SUBCUT Q12H [facility] Last Admin: 09/14/16 09:38 Dose: 80 mg Furosemide (Lasix Inj) 40 mg IV BID DIURETIC [facility] Last Admin: 09/14/16 09:38 Dose: 40 mg Gabapentin (Neurontin Cap/Tab) 100 mg PO BEDTIME PRN PRN Reason: neuropathy Glucagon () 1 mg IM PRN PRN PRN Reason: Hypoglycemia w/o IV access Levofloxacin/Dextrose 500 mg/ (Premix) 100 mls @ 100 mls/hr IV Q24H [facility] Last Infusion: 09/14/16 09:40 Dose: Infused Sodium Chloride (Ns) 1,000 mls @ 35 mls/hr IV .Q24H [facility] Last Admin: 09/14/16 09:36 Dose: Not Given Insulin Glargine (Lantus) 20 unit SUBCUT BEDTIME [facility] Last Admin: 09/13/16 21:17 Dose: 20 unit Insulin Human Regular (Humulin R) 0 unit SUBCUT ACHS CL[place] PRN Reason: Protocol Last Admin: 09/14/16 09:37 Dose: 18 unit Latanoprost (Xalatan) 1 drop BOTH EYES BEDTIME [facility] Last Admin: 09/13/16 23:54 Dose: Not Given Metformin HCl (Glucophage) 500 mg PO BID W/MEALS [facility] Last Admin: 09/14/16 09:37 Dose: 500 mg Methylprednisolone Sodium Succinate (Solumedrol) 40 mg IV Q8H [facility] Last Admin: 09/14/16 09:37 Dose: 40 mg Mirtazapine (Remeron) 15 mg PO BEDTIME PRN PRN Reason: Sleep Morphine Sulfate () 2 mg IV Q4H PRN PRN Reason: Pain Severe (8-10) Nitroglycerin (Nitro Bid Oint) 0.5 inch TOP Q6HR [facility] Last Admin: 09/14/16 06:03 Dose: Not Given Ondansetron HCl (Zofran Inj) 4 mg IV Q4H PRN PRN Reason: Nausea Pantoprazole Sodium (Protonix Tab) 40 mg PO DAILY [facility] Last Admin: 09/14/16 09:37 Dose: 40 mg Prednisone () 20 mg PO DAILY [facility] Last Admin: 09/14/16 09:44 Dose: Not Given Senna/Docusate Sodium (Senokot S) 2 tablet PO BEDTIME PRN PRN Reason: Constipation Tamoxifen Citrate (Nolvadex) 10 mg PO BID [facility] Last Admin: 09/14/16 09:37 Dose: 10 mg Exam (Progress Note) - Constitutional Vitals: Period Temp Pulse Resp BP Sys/Chang Pulse Ox Last 24 Hr 96.2 F-98.5 F 59-62 16-20 170-204/74-86 92-98 Exam: General: Present: No Apparent Distress, Other (Appears chronically ill) HEENT: Present: PERRL, Normocephaly, Mucus Membranes Dry. Absent: Jaundice, Pallor Neck: Present: Supple Neck, Midline Trachea Cardiac: Present: Reg Rate and Rhythm. Absent: Tachycardia, Bradycardia Lungs: Present: Bibasilar Rales (Minimal;improved from previous exam). Absent: Oxygen Neuro: Present: Weakness, Grossly Intact. Absent: Numbness, Essential Tremor Abdomen: Present: Soft, Active Bowel Sounds. Absent: Ascites, Tender, Firm Skin: Present: Bruising (Mild ecchymotic bruising of BUE's). Absent: Rash, Suspicious Lesions Musculoskeletal: Present: Decreased Range of Motion, No Fluid Collection Extremities: Present: No Clubbing, No Cyanosis, No Edema, Normal Upper Extr. Pulses (2-3+ bilaterally), Normal Lower Extr. Pulses (2-3+ bilateral), Capillary Refill (Normal) Result/EKG - Labs CBC & BMP: 09/14/16 04:46 09/14/16 04:46 Lab Results: I have reviewed the past 24 hour labs Labs: Laboratory Results - last 24 hr 09/13/16 09/14/16 09/14/16 16:13 04:46 04:46 WBC 8.9 RBC 4.03 Hgb 11.1 L Hct 34.8 L MCV 86.4 L MCH 28 MCHC 31.9 L RDW 16.0 Plt Count 132 MPV 12.1 H Neut % (Auto) 91.9 H Lymph % (Auto) 5.4 L Woods % (Auto) 2.0 Eos % (Auto) 0.0 Baso % (Auto) 0.0 Neut # (Auto) 8.2 H Lymph # (Auto) 0.5 L Woods # (Auto) 0.2 Eos # (Auto) 0.0 Baso # (Auto) 0.0 Total Counted 100 Immature Gran % 0.7 Nucleated RBC % 0.0 Immature Gran # 0.06 Segmented Neutrophils 93 H Lymphocytes 4 L Monocytes 3 Nucleated RBCs # 0.00 Platelet Estimate Adequate Hypochromasia 1+ Microcytosis 1+ Ovalocytes Slight Sodium 140 Potassium 4.1 Chloride 102 Carbon Dioxide 28 Anion Gap 14.1 BUN 41 H Creatinine 1.30 H GFR Calculation 38 BUN/Creatinine Ratio 31.00 H Glucose 407 H POC Glucose 336 H Calculated Osmolality 305.4 H Calcium 9.3 Magnesium 1.9 Total Creatine Kinase 30 D Troponin I 0.020 B-Natriuretic Peptide 09/14/16 09/14/16 09/14/16 04:46 07:03 11:17 WBC RBC Hgb Hct MCV MCH MCHC RDW Plt Count MPV Neut % (Auto) Lymph % (Auto) Woods % (Auto) Eos % (Auto) Baso % (Auto) Neut # (Auto) Lymph # (Auto) Woods # (Auto) Eos # (Auto) Baso # (Auto) Total Counted Immature Gran % Nucleated RBC % Immature Gran # Segmented Neutrophils Lymphocytes Monocytes Nucleated RBCs # Platelet Estimate Hypochromasia Microcytosis Ovalocytes Sodium Potassium Chloride Carbon Dioxide Anion Gap BUN Creatinine GFR Calculation BUN/Creatinine Ratio Glucose POC Glucose 414 H 476 H Calculated Osmolality Calcium Magnesium Total Creatine Kinase Troponin I B-Natriuretic Peptide 233 H - EKG EKG results: interpreted by me, no acute changes (Atrial pacing; underlying atrial flutter) IGenaro Michael, MD, personally performed the services described in this documentation, ascribed by Gabby Saab RN in my presence, and it is both accurate and complete .
--- NOTE | 2016-09-14 15:09 | Hospitalist Progress Note ---
Assessment and Plan (1) Acute exacerbation of chronic obstructive airways disease Status: Acute Current Visit: Yes (2) Congestive heart failure Status: Acute Assessment and plan: We will transition diuretic to oral medication. Further diuresis is unlikely to help her shortness of breath. The patient is receiving IV antibiotics. Some of her congestion may be aspiration. I am going to ask for speech therapy evaluation. I anticipate that she will be ready to go back to [facility] tomorrow. Current Visit: Yes (3) Dementia Status: Chronic Current Visit: Yes Hospitalist: Subjective Interval history: The patient has less congestion today. The patient is becoming volume depleted on diuretic. The patient still feels weak and ill. Exam - Constitutional Vitals: Period Temp Pulse Resp BP Sys/Chang Pulse Ox Last 24 Hr 96.2 F-98.5 F 59-62 16-20 170-204/74-86 92-98 Exam: Constitutional System: Mild distress. Bewildered appearance Head: Normocephalic, atraumatic. Ears, Nose and Throat System: No evidence of Otitis or Mastoiditis. No epistaxis or discharge Eyes System: Pupils equal, round, and reactive. Extraocular muscles intact. Neck: Supple, without adenopathy, trace jugular venous distention. No thyromegaly, neck mass, or prior surgery apparent. Respiratory System: Chest clear to auscultation. Left mastectomy Cardiovascular System: Heart with regular rate and rhythm. No murmur. GI System: Abdomen soft, nontender. Normo active bowel sounds present. Musculoskeletal System: limbs with trace pedal edema. Full distal pulses. Neurological System: No discernable sensory deficit. No aphasia Psychiatric System: Conversation is confused Results - Labs CBC & BMP: 09/14/16 04:46 09/14/16 04:46 Lab Results: I have reviewed the past 24 hour labs
[2016-09-14] MEDS: CIPROFLOXACIN 250 MG TABLET PO SCH (21:17)
[2016-09-14] MEDS: INSULIN GLARGINE 100 UNIT/ML SUBCUT SCH (21:20)
[2016-09-14] MEDS: LATANOPROST 0.005% OPH SOLN 2.5 ML BOTTLE BOTH EYES SCH (21:22)
[2016-09-15] MEDS ORDERED: SODIUM CHLORIDE 0.9% 1,000 ML IV SCH (05:00)
[2016-09-15 05:19] LABS: Basophils % 0.1 % (0.0-0.8); Eosinophils % 0.3 % (0.00-10.9); Hematocrit 36.2 VOL% (35.7-47.0); Hemoglobin 11.7 GM/DL (12.0-16.0); Immature Granulocytes % 1.1 %; Immature Granulocytes Absolute 0.12 #; Lymphocytes # 1.2 10*3/uL (1.4-4.0); Lymphocytes % 10.5 % (21.3-54.2); Mean Corpuscular HGB Conc 32.3 GM/DL (32-36); Mean Corpuscular Hemoglobin 28 PG (27-34); Mean Platelet Volume 11.6 FL (9.6-12.0); Monocytes # 0.8 10*3/uL (0.11-0.8); Monocytes % 7.3 % (1.7-12.7); Neutrophils # 8.9 10*3/uL (1.4-7.4); Neutrophils % 80.7 % (38.7-73.9); Platelet Count 158 T/CUMM (130-400); Red Blood Count 4.26 MC/CUMM (3.8-5.5); Red Cell Distribution Width 16.2 % (9.3-17.3); White Blood Count 11.1 T/CUMM (4-12)
[2016-09-15 05:32] LABS: INR 1.2; PT Patient Result 12.6 SECS; Partial Thromboplastin Time 28.5 SECS (0-40)
[2016-09-15 06:18] LABS: Calcium 9.8 MG/DL (8.5-10.1); Magnesium 1.7 MG/DL (1.8-2.4); Potassium 3.4 MMOL/L (3.5-5.1)
[2016-09-15] MEDS: NITROGLYCERIN 2% OINT 1 INCH/GM PACK TOP SCH (06:19)
[2016-09-15 06:20] LABS: Alanine Aminotransferase 69 U/L (13-56); Albumin 2.4 G/DL (3.4-5.0); Alkaline Phosphatase 126 U/L (45-117); Aspartate Amino Transferase 33 U/L (0-37); Bilirubin,Total < 0.39 MG/DL (0.2-1.0); Blood Urea Nitrogen 41 MG/DL (7-18); Calcium 9.3 MG/DL (8.5-10.1); Glucose 195 MG/DL (74-106); Potassium 3.1 MMOL/L (3.5-5.1); Sodium 143 MMOL/L (136-145); Total Protein 5.5 G/DL (6.4-8.3)
[2016-09-15 07:08] LABS: Amorphous Crystals,Urine Occasional /HPF (Few); Apearance,Urine CLEAR (Clear); Bacteria,Urine Occasional /HPF (Few); Bilirubin,Urine Negative (Negative); Blood, Urine Negative (Negative); Glucose,Urine (UA) 50 mg/dL (Negative); Hyaline Casts,Urine 4 /LPF (0-3); Ketones,Urine Negative (Negative); Mucus,Urine Occasional /LPF (Occasional); Nitrite,Urine Negative (Negative); Protein,Urine 100 MG/DL; RBC,Urine 3 /HPF (0-4); Squamous Epithelial Cell,Urine Occasional /HPF (0-10); Urine Color Yellow (Yellow); Urine Specific Gravity 1.011 (1.001-1.035); Urine Urobilinogen < 2.0 EU/DL (0.2-1.0); WBC,Urine 1 /HPF (0-6)
[2016-09-15 08:06] VITALS: BP 140/65
--- NOTE | 2016-09-15 08:26 | CT Report ---
CT head/brain wo con INDICATION: Right facial droop Stroke The total DLP is 1073 mGy*cm. COMPARISON: Noncontrast CT head dated 11/25/2012 Technique: Serial axial tomographic images of the brain were obtained without the use of intravenous contrast. Dose reduction: This CT exam was performed using one or more of the following dose reduction techniques: Automated exposure control, automated adjustment of the mA and/or KV according to patient size, or use of iterative reconstruction technique. Findings: Moderate-advanced generalized atrophy is noted with mild prominence of the sulci and cortical volume loss. Periventricular white matter hypodensity changes are noted bilaterally which do not demonstrate mass effect and are nonspecific but favored to represent sequela of chronic microvascular ischemia. There is also focal encephalomalacia within the right cerebral hemisphere from remote abdomen infarct, unchanged There is no evidence of vascular territory infarct or acute intracranial hemorrhage. The kan-white matter differentiation is generally maintained. There is no hydrocephalus. The basilar cisterns are patent. Layering opacities within the bilateral ethmoidal air cells and sphenoid sinuses are noted. Otherwise, the paranasal sinuses, mastoid air cells and middle ear cavities are predominantly clear. The included orbits and their contents appear within normal limits. The visualized osseous structures and overlying soft tissues of the skull and face demonstrate no acute abnormality. Remote right occipital craniotomy defect is again noted. IMPRESSION: No acute intracranial abnormality. Essentially stable chronic findings of microvascular ischemia and remote right cerebellar infarct. No change from pulmonary [facility] report. PROCEDURE INTERPRETED AT [facility] DEPARTMENT OF RADIOLOGY Final Report Signed by: Abdi Matos
[2016-09-15] MEDS: INSULIN REGULAR 100 UNIT/ML SUBCUT SCH (08:35)
[2016-09-15] MEDS ORDERED: methylPREDNISolone SOD SUC 40 MG/1 ML VIAL IV SCH (09:00)
[2016-09-15] MEDS ORDERED: FUROSEMIDE 20 MG TABLET PO SCH (09:00)
--- NOTE | 2016-09-15 09:35 | Discharge Summary ---
Hospital Course - Hospital Course Hospital Course: Mrs. Rausch was transferred from [facility] through the emergency room. The patient had upper airway congestion and some element of congestive heart failure. We obtained cardiology consultation here in the hospital. Echocardiogram revealed ejection fraction of 50% and the patient is thought to have diastolic heart failure. The patient had diuresis and control of blood pressure. We adjusted her diabetes medications. The patient remains weak as she was at the time of admission but she has less congestion and feels better. The patient is now ready to return to [facility] to resume [facility] care. On the date of discharge, chest is relatively clear and heart has regular rate and rhythm. [id number] discharge time 32 minutes. - Time spent with patient Time with patient DS: Greater than 30 minutes Diagnosis - Discharge Diagnosis (1) Acute exacerbation of chronic obstructive airways disease Status: Resolved (2) Congestive heart failure Status: Chronic (3) Dementia Status: Chronic Discharge Plan - Discharge Data Disposition: Disch/Xfer to Snf Condition at Discharge: Stable Discharge Diet: heart healthy - Discharge Medications New Furosemide Tab [Lasix Tab] 60 mg PO DAILY tablet Aspirin EC Tab 81 mg PO DAILY #0 tablet Continue Dorzolamide/Timolol Oph Soln [Cosopt] 1 drop BOTH EYES BID Tamoxifen Tab [Nolvadex] 10 mg PO BID predniSONE TAB [PredniSONE] 20 mg PO DAILY Insulin Lispro [HumaLOG] 10 units SUBCUT AC Cholecalciferol (Vitamin D3) [Vitamin D3] 50,000 unit PO MO Insulin Detemir [Levemir] 20 units SUBCUT BEDTIME Calcium Carbonate/Vitamin D3 [Calcium 600 + Vit D Tablet] 1 each PO BID Albuterol Neb [Proventil Neb] 1.25 mg RESP TX Q4H PRN PRN Reason: Shortness Of Breath/Wheezing raNITIdine HCl [Ranitidine HCl] 150 mg PO BEDTIME PRN PRN Reason: Indigestion Mirtazapine [Remeron] 15 mg PO BEDTIME PRN PRN Reason: Sleep Docusate/Senna 50-8.6 [Senokot S] 2 tablet PO BEDTIME PRN PRN Reason: Constipation Gabapentin 100 mg PO BEDTIME PRN PRN Reason: neuropathy Simvastatin 10 mg PO BEDTIME metFORMIN [Glucophage] 500 mg PO BID W/MEALS amLODIPine [Norvasc] 10 mg PO DAILY Carvedilol [Coreg] 12.5 mg PO BID Latanoprost 0.005% Oph Soln [Xalatan 0.005% Oph Soln] 1 drop BOTH EYES BEDTIME Sertraline [Zoloft] 100 mg PO DAILY Lisinopril 20 mg PO DAILY Discontinued Furosemide 20 mg PO DAILY Oxybutynin [Ditropan] 5 mg PO DAILY levoFLOXacin [Levaquin] 250 mg PO DAILY - Follow Up or Referral - Forms/Instructions Exam - Constitutional Vitals: Period Temp Pulse Resp BP Sys/Chang Pulse Ox Last 24 Hr 96.4 F-98.4 F 60-98 16-18 119-208/58-84 90-99 Discharge Results Labs on day of discharge: Labs from last 24 hours 09/15/16 09/15/16 09/15/16 07:25 06:00 05:15 WBC RBC Hgb Hct MCV MCH MCHC RDW Plt Count MPV Neut % (Auto) Lymph % (Auto) Gilmer % (Auto) Eos % (Auto) Baso % (Auto) Neut # (Auto) Lymph # (Auto) Gil[place] # (Auto) Eos # (Auto) Baso # (Auto) Immature Gran % Nucleated RBC % Immature Gran # Nucleated RBCs # INR PT Patient/Control Mix Circ Anticoag PTT Sodium Potassium Chloride Carbon Dioxide Anion Gap BUN Creatinine GFR Calculation BUN/Creatinine Ratio Glucose POC Glucose 100 167 H Calculated Osmolality Calcium Magnesium Total Bilirubin AST ALT Alkaline Phosphatase B-Natriuretic Peptide Total Protein Albumin Globulin Albumin/Globulin Ratio Urine Color Yellow Urine Appearance Clear Urine pH 6.0 Ur Specific [place] 1.011 Urine Protein 100 Urine Glucose (UA) 50 Urine Ketones Negative Urine Blood Negative Urine Nitrate Negative Urine Bilirubin Negative Urine Urobilinogen < 2.0 H Urine Leukocytes Negative Urine RBC 3 Urine WBC 1 Ur Squamous Epith Cells Occasional Amorphous Crystals Occasional Urine Bacteria Occasional Hyaline Casts 4 Urine Mucus Occasional Ur Culture Indicated? Not indicated 09/15/16 09/15/16 09/15/16 05:11 05:07 05:07 WBC RBC Hgb Hct MCV MCH MCHC RDW Plt Count MPV Neut % (Auto) Lymph % (Auto) Gilmer % (Auto) Eos % (Auto) Baso % (Auto) Neut # (Auto) Lymph # (Auto) Gilmer # (Auto) Eos # (Auto) Baso # (Auto) Immature Gran % Nucleated RBC % Immature Gran # Nucleated RBCs # INR 1.2 PT Patient/Control Mix 12.6 Circ Anticoag PTT 28.5 Sodium 143 Potassium 3.1 L Chloride 106 Carbon Dioxide 25 Anion Gap 15.1 H BUN 41 H Creatinine 1.20 H GFR Calculation 41 BUN/Creatinine Ratio 34.00 H Glucose 195 H POC Glucose 171 H Calculated Osmolality 299.0 Calcium 9.3 Magnesium Total Bilirubin < 0.39 AST 33 ALT 69 H Alkaline Phosphatase 126 H B-Natriuretic Peptide Total Protein 5.5 L Albumin 2.4 L Globulin 3.1 Albumin/Globulin Ratio 0.7 L Urine Color Urine Appearance Urine pH Ur Specific [place] Urine Protein Urine Glucose (UA) Urine Ketones Urine Blood Urine Nitrate Urine Bilirubin Urine Urobilinogen Urine Leukocytes Urine RBC Urine WBC Ur Squamous Epith Cells Amorphous Crystals Urine Bacteria Hyaline Casts Urine Mucus Ur Culture Indicated? 09/15/16 09/15/16 09/15/16 05:07 04:46 04:36 WBC 11.1 RBC 4.26 Hgb 11.7 L Hct 36.2 MCV 85.0 L MCH 28 MCHC 32.3 RDW 16.2 Plt Count 158 MPV 11.6 Neut % (Auto) 80.7 H Lymph % (Auto) 10.5 L Gilmer % (Auto) 7.3 Eos % (Auto) 0.3 Baso % (Auto) 0.1 Neut # (Auto) 8.9 H Lymph # (Auto) 1.2 L Gilmer # (Auto) 0.8 Eos # (Auto) 0.0 Baso # (Auto) 0.0 Immature Gran % 1.1 Nucleated RBC % 0.0 Immature Gran # 0.12 Nucleated RBCs # 0.00 INR PT Patient/Control Mix Circ Anticoag PTT Sodium Potassium Chloride Carbon Dioxide Anion Gap BUN Creatinine GFR Calculation BUN/Creatinine Ratio Glucose POC Glucose 31 L* Calculated Osmolality Calcium Magnesium Total Bilirubin AST ALT Alkaline Phosphatase B-Natriuretic Peptide 143 H Total Protein Albumin Globulin Albumin/Globulin Ratio Urine Color Urine Appearance Urine pH Ur Specific [place] Urine Protein Urine Glucose (UA) Urine Ketones Urine Blood Urine Nitrate Urine Bilirubin Urine Urobilinogen Urine Leukocytes Urine RBC Urine WBC Ur Squamous Epith Cells Amorphous Crystals Urine Bacteria Hyaline Casts Urine Mucus Ur Culture Indicated? 09/15/16 09/14/16 09/14/16 04:36 20:40 16:28 WBC RBC Hgb Hct MCV MCH MCHC RDW Plt Count MPV Neut % (Auto) Lymph % (Auto) Gilmer % (Auto) Eos % (Auto) Baso % (Auto) Neut # (Auto) Lymph # (Auto) Gilmer # (Auto) Eos # (Auto) Baso # (Auto) Immature Gran % Nucleated RBC % Immature Gran # Nucleated RBCs # INR PT Patient/Control Mix Circ Anticoag PTT Sodium 143 Potassium 3.4 L Chloride 107 Carbon Dioxide 28 Anion Gap 11.4 BUN 42 H Creatinine 1.12 H GFR Calculation 45 BUN/Creatinine Ratio 37.00 H Glucose 20 L* POC Glucose 197 H 314 H Calculated Osmolality 291.0 Calcium 9.8 Magnesium 1.7 L Total Bilirubin AST ALT Alkaline Phosphatase B-Natriuretic Peptide Total Protein Albumin Globulin Albumin/Globulin Ratio Urine Color Urine Appearance Urine pH Ur Specific [place] Urine Protein Urine Glucose (UA) Urine Ketones Urine Blood Urine Nitrate Urine Bilirubin Urine Urobilinogen Urine Leukocytes Urine RBC Urine WBC Ur Squamous Epith Cells Amorphous Crystals Urine Bacteria Hyaline Casts Urine Mucus Ur Culture Indicated? 09/14/16 09/14/16 14:36 11:17 WBC RBC Hgb Hct MCV MCH MCHC RDW Plt Count MPV Neut % (Auto) Lymph % (Auto) Gilmer % (Auto) Eos % (Auto) Baso % (Auto) Neut # (Auto) Lymph # (Auto) Gilmer # (Auto) Eos # (Auto) Baso # (Auto) Immature Gran % Nucleated RBC % Immature Gran # Nucleated RBCs # INR PT Patient/Control Mix Circ Anticoag PTT Sodium Potassium Chloride Carbon Dioxide Anion Gap BUN Creatinine GFR Calculation BUN/Creatinine Ratio Glucose POC Glucose 353 H 476 H Calculated Osmolality Calcium Magnesium Total Bilirubin AST ALT Alkaline Phosphatase B-Natriuretic Peptide Total Protein Albumin Globulin Albumin/Globulin Ratio Urine Color Urine Appearance Urine pH Ur Specific [place] Urine Protein Urine Glucose (UA) Urine Ketones Urine Blood Urine Nitrate Urine Bilirubin Urine Urobilinogen Urine Leukocytes Urine RBC Urine WBC Ur Squamous Epith Cells Amorphous Crystals Urine Bacteria Hyaline Casts Urine Mucus Ur Culture Indicated? DS: Provider Date of admission: 09/12/16 02:18 Primary care physician: Nina Lynn MD Attending physician on admission: Leland Mary MD Consults: 09/12/16 04:12 Consult to Physician [CONS] Routine Comment: On-call physician/elevated troponin & CHF Consulting Provider: Cardiology - [facility] Consult to Specialist Group: Cardiology When should Consulting Provider be notified: In am Person Notified: NICHOLE Date Notified: 09/12/16 Time Notified: 08:10 05/04/17 15:06 Consult to Speech Therapy [CONS] Routine Reason for Speech Therapy: Swallowing Impairment Discharging clinician: Cy Hodges MD
[2016-09-15] MEDS: metFORMIN 500 MG TABLET PO SCH (09:45)
[2016-09-15] MEDS: TAMOXIFEN 10 MG TABLET PO SCH (09:45)
[2016-09-15] MEDS: amLODIPine 10 MG TABLET PO SCH (09:46)
[2016-09-15] MEDS: CIPROFLOXACIN 250 MG TABLET PO SCH (09:46)
[2016-09-15] MEDS: CARVEDILOL 12.5 MG TABLET PO SCH (09:46)
[2016-09-15] MEDS: ASPIRIN EC 81 MG TABLET PO SCH (09:46)
[2016-09-15] MEDS: DORZOLAMIDE/TIMOLOL OPH SOLN 10 ML BOTTLE BOTH EYES SCH (09:46)
[2016-09-15] MEDS: PANTOPRAZOLE 40 MG TABLET PO SCH (09:46)
[2016-09-15] MEDS: predniSONE 20 MG TABLET PO SCH (09:47)
== END 2016-09-15 13:45 | DRG 292 ==
LOC: EDUNIT# → EDBD → N.ED 00:43 → N.EDINP 02:18 → SUATTDRO 02:18 → N.TELES 02:57
PROVIDERS: ADMIT Internal Medicine Infectious Disease; ATTEND Internal Medicine

== ENCOUNTER 2016-12-02 21:51 | Inpatient (IN) ==
--- NOTE | 2016-12-02 23:11 | Emergency Department Note ---
Arrival - Arrival Chief Complaint: Altered Mental Status ED Nursing Triage Note: Pt arrives via ems from [facility] with complaints of pt being altered. Pt has history of dementia and according to staff she seems worse at night. Pt was noted to have an elevated blood glucose at intermediate. Ems reports 358 mg/dl en route. Report was given that pt has been sneaking to snack machine and eating candy bars and chips today. Pt has no complaints at time of triage but is noted to be confused to place and time. Mode of Arrival: Stretcher Limitations: Altered Mental Status Source: Patient Time Seen by Provider: 12/02/16 22:25 - History of Present Illness HPI Narrative: The patient is a poor historian and it is not clear whether this is due to altered mental status or her baseline dementia. She answers some questions and not others and is inconsistent on the ones she does answer. At first she denies any pain or complaints at all then says yes when I asked her if she has a headache. She denies chest pain. She appears to be short of breath. She says she is not at one point and then later says she is. She was apparently sent from [facility] for altered mental status and hyperglycemia. They do note that her mental status is worse at night and that she has been sneaking to the snack machine and eating candy bars today. Date of Last Menstrual Period: pm Allergies/Adverse Reactions: Allergies Allergy/AdvReac Type Severity Reaction Status Date / Time No Known Allergies Allergy Unverified 09/12/16 01:01 Home Medications: Home Medications Medication Instructions Recorded Confirmed Type Albuterol Neb [Proventil Neb] 1.25 mg RESP TX Q4H PRN 09/12/16 12/02/16 History Calcium Carbonate/Vitamin D3 1 each PO BID 09/12/16 12/02/16 History [Calcium 600 + Vit D Tablet] Carvedilol [Coreg] 12.5 mg PO BID 09/12/16 12/02/16 History Cholecalciferol (Vitamin D3) 50,000 unit PO MO 09/12/16 12/02/16 History [Vitamin D3] Docusate/Senna 50-8.6 [Senokot S] 2 tablet PO BEDTIME PRN 09/12/16 12/02/16 History Dorzolamide/Timolol Oph Soln 1 drop BOTH EYES BID 09/12/16 12/02/16 History [Cosopt] Gabapentin 100 mg PO BEDTIME PRN 09/12/16 12/02/16 History Insulin Detemir [Levemir] 20 units SUBCUT BEDTIME 09/12/16 12/02/16 History Insulin Lispro [HumaLOG] 10 units SUBCUT AC 09/12/16 12/02/16 History Latanoprost 0.005% Oph Soln 1 drop BOTH EYES BEDTIME 09/12/16 12/02/16 History [Xalatan 0.005% Oph Soln] Lisinopril 20 mg PO DAILY 09/12/16 12/02/16 History Mirtazapine [Remeron] 15 mg PO BEDTIME PRN 09/12/16 12/02/16 History Sertraline [Zoloft] 100 mg PO DAILY 09/12/16 12/02/16 History Simvastatin 10 mg PO BEDTIME 09/12/16 12/02/16 History Tamoxifen Tab [Nolvadex] 10 mg PO BID 09/12/16 12/02/16 History amLODIPine [Norvasc] 10 mg PO DAILY 09/12/16 12/02/16 History metFORMIN [Glucophage] 500 mg PO BID W/MEALS 09/12/16 12/02/16 History predniSONE TAB [PredniSONE] 20 mg PO DAILY 09/12/16 12/02/16 History raNITIdine HCl [Ranitidine HCl] 150 mg PO BEDTIME PRN 09/12/16 12/02/16 History Aspirin EC Tab 81 mg PO DAILY #0 tablet 09/15/16 12/02/16 Rx Furosemide Tab [Lasix Tab] 60 mg PO DAILY tablet 09/15/16 12/02/16 Rx Review of System - Review of System ROS unobtainable: due to mental status Medical,Surgical,& Family Hx - Medical History Cardio: History of: Cardiac Dysrhythmia, Hypertension, Pacemaker (Right chest), Valvular Heart Disease No history of: [place] Psychological: History of: Anxiety Disorders, Depression Neurology: History of: Dementia No history of: Cerebrovascular Accident, Seizures, TIA Endocrine: History of: Diabetes Mellitus (IDDM), Dyslipidemia No history of: Thyroid Disorder Respiratory: History of: COPD Gastrointestinal: History of: GERD Musculoskeletal: History of: Musculoskeletal Problems (arthritis) Hematology: History of: Anemia No history of: Blood Transfusion Reaction Reproductive: History of: Breast Cancer (left) Other: No history of: Cancer - Surgical History Neurologic Surgeries: Patient denies: Neurologic Surgery - Family History Family History: noncontributory - Social History Smoking Status: Never smoker Frequency of Alcohol Use: None Type of Drug Use: None Exam Physical Examination: GENERAL: Alert. No acute distress. Patient is difficult to understand and not very cooperative. Unclear whether this is baseline or not. HEENT: Normocephalic and atraumatic. There is no nasal drainage. Patient is uncooperative with oropharyngeal exam. NECK: Normal inspection. Supple. No lymphadenopathy or meningismus. LUNGS: No respiratory distress. Rales bilaterally. HEART: Regular rate and rhythm. ABDOMEN: Soft, nontender and nondistended with normoactive bowel sounds. BACK: Normal inspection. SKIN: Color normal. Warm and dry. EXTREMITIES: Nontender. Normal range of motion. No pedal edema. NEUROLOGICAL/PSYCHIATRIC: Alert and awake. Oriented 1. No obvious cranial, motor or sensory deficit but patient is not very cooperative with neuro exam. Vital Signs: Vital Signs Temperature 97.0 F L 12/02/16 21:51 Pulse Rate 61 12/02/16 21:51 Respiratory Rate 18 12/02/16 21:55 Blood Pressure 136/51 12/02/16 21:51 O2 Sat by Pulse Oximetry 100 12/02/16 21:51 Course Course Narrative: Note: The multiple negatives in the past medical history were not marked by me. They are the result of the triage process, past medical records or other unknown causes. Due to time constraints, these were not all reviewed with the patient and the backslashes were not removed from the chart. They should be ignored. - Reevaluation(s) Reevaluation #1: I have discussed patient with the hospitalist service who will see her and admit. Time: 01:20 Results - Labs CBC & BMP: 12/02/16 23:00 12/02/16 23:00 Lab Results: I have reviewed the patients labs Labs: Laboratory Tests 12/02/16 12/02/16 23:00 23:50 Calculated Osmolality 313.0 H Lactic Acid 2.4 H Total Bilirubin < 0.39 AST 47 H ALT 72 H Alkaline Phosphatase 183 H Amylase 9 L Lipase 70.0 L Urine Nitrate Positive H Urine RBC 7 Urine WBC 2 Urine Bacteria Occasional Urine Yeast (Budding) Moderate Ur Culture Indicated? Results to follow - Impressions CT of the head shows no acute intracranial abnormality. Disposition Clinical Impression: Altered mental status, Thrombocytopenia, Elevated liver enzymes, UTI (urinary tract infection), Dehydration Case discussed with: patient's family Disposition: Still a Patient Condition: Critical Time of Disposition: 01:32
[2016-12-02 23:23] LABS: Basophils % 0.1 % (0.0-0.8); Eosinophils % 0.3 % (0.00-10.9); Hematocrit 32.4 VOL% (35.7-47.0); Hemoglobin 10.6 GM/DL (12.0-16.0); Immature Granulocytes % 1.5 %; Immature Granulocytes Absolute 0.13 #; Lymphocytes # 0.7 10*3/uL (1.4-4.0); Lymphocytes % 8.3 % (21.3-54.2); Mean Corpuscular HGB Conc 32.7 GM/DL (32-36); Mean Corpuscular Hemoglobin 31 PG (27-34); Mean Corpuscular Volume 93.9 FL (87-102); Mean Platelet Volume 11.3 FL (9.6-12.0); Monocytes # 0.4 10*3/uL (0.11-0.8); Monocytes % 4.4 % (1.7-12.7); Neutrophils # 7.7 10*3/uL (1.4-7.4); Neutrophils % 85.4 % (38.7-73.9); Platelet Count 69 T/CUMM (130-400); Red Blood Count 3.45 MC/CUMM (3.8-5.5); Red Cell Distribution Width 16.7 % (9.3-17.3)
[2016-12-02 23:46] LABS: Alanine Aminotransferase 72 U/L (13-56); Albumin 2.9 G/DL (3.4-5.0); Alkaline Phosphatase 183 U/L (45-117); Amylase 9 U/L (25-115); Aspartate Amino Transferase 47 U/L (0-37); Bilirubin,Total < 0.39 MG/DL (0.2-1.0); Blood Urea Nitrogen 43 MG/DL (7-18); Calcium 9.7 MG/DL (8.5-10.1); Glucose 415 MG/DL (74-106); Magnesium 2.3 MG/DL (1.8-2.4); Potassium 4.3 MMOL/L (3.5-5.1); Sodium 143 MMOL/L (136-145); Total Protein 5.4 G/DL (6.4-8.3)
[2016-12-02 23:58] LABS: Lactic Acid 2.4 MMOL/L (0.4-2.0)
[2016-12-03 00:02] LABS: Ammonia 24 UMOL/L (11-32)
[2016-12-03 00:05] LABS: Apearance,Urine Slightly Hazy (Clear); Bacteria,Urine Occasional /HPF (Few); Bilirubin,Urine Negative (Negative); Blood, Urine Negative (Negative); Glucose,Urine (UA) >=500 mg/dL (Negative); Ketones,Urine Negative (Negative); Nitrite,Urine Positive (Negative); Protein,Urine 30 MG/DL; RBC,Urine 7 /HPF (0-4); Squamous Epithelial Cell,Urine Occasional /HPF (0-10); Urine Color Yellow (Yellow); Urine Specific Gravity 1.013 (1.001-1.035); Urine Urobilinogen < 2.0 EU/DL (0.2-1.0); WBC,Urine 2 /HPF (0-6)
[2016-12-03] MEDS ORDERED: INSULIN REGULAR 100 UNIT/ML IV STA (00:11)
[2016-12-03] MEDS ORDERED: SODIUM CHLORIDE 0.9% 1,000 ML IV STA (00:11)
[2016-12-03] MEDS ORDERED: INSULIN REGULAR 100 UNIT/ML ONE (00:20)
--- NOTE | 2016-12-03 02:05 | Hospitalist History & Physical ---
Assessment and Plan (1) UTI (urinary tract infection) Status: Acute Assessment and plan: Admit to the hospital services observation. Start Rocephin 1 g IV daily. Take antibiotics according to urine culture. UA also revealed budding yeast will start Diflucan 400 mg IV daily. SCD prophylaxis in the form of SCDs. Patient thrombocytopenic avoid pharmacological prophylaxis at this point. Resume all home medications as appropriate. Current Visit: Yes (2) Dementia Status: Chronic Assessment and plan: Continue home medications as prescribed. Patient appears to be at baseline. Fall precautions. Current Visit: No (3) Diabetes mellitus with hyperglycemia Status: Acute Assessment and plan: Accu-Cheks before meals and at bedtime with supplemental sliding scale. Patient received bolus in ED due to congestive heart failure history of low gently hydrate with normal saline at 75 mL's hour being cautious for fluid overload. Hold metformin and home medicine at this point use only sliding scale coverage. Current Visit: Yes (4) CKD (chronic kidney disease) stage 3, GFR 30-59 ml/min Status: Chronic Assessment and plan: Reviewing patient's previous labs elevated BUN to creatinine is chronic. Continue to monitor and trend. Gently hydrate with normal saline at 75 mL's an hour. Monitor for fluid overload Current Visit: Yes (5) Lactic acid acidosis Status: Acute Assessment and plan: Patient received normal saline bolus in ED recheck lactic acid. Current Visit: Yes History of Present Illness Chief complaint: Increased confusion History of present illness: Ms. Rausch is a 76 year old female atrial fibrillation, congestive heart failure of unknown stage, hypertension, right chest wall pacemaker, valvular heart disease, COPD, anxiety, depression, dementia, diabetes , and dyslipidemia presents to the ED tonight from [facility] with chief complaint of increased confusion. Patient is unable to participate in the history so information is obtained from the medical record and the nursing staff. Per the medical record the patient has underlying dementia and is at baseline confused, but has been progressively been getting worse at night. long-term staff that reports that tonight she was at her worse in combination with elevated blood sugar and they elected just to seek medical attention for her. Initial workup in ED included a WBC of 9.0, hemoglobin 10.6, hematocrit 32.4, count 69, BUN 43, creatinine 1.20, glucose 415 , lactic acid 2.4, AST 47, ALT 72, alkaline phosphate 183, albumin 2.9, lipase 70, UA positive for nitrates and greater than 500 glucose and budding yeast and moderate, CT of the head was negative for acute process. She will be admitted to the MedSurg unit under the service of the hospitalist for further evaluation and treatment Home Medications Medication Instructions Recorded Confirmed Type Albuterol Neb [Proventil Neb] 1.25 mg RESP TX Q4H PRN 09/12/16 12/02/16 History Calcium Carbonate/Vitamin D3 1 each PO BID 09/12/16 12/02/16 History [Calcium 600 + Vit D Tablet] Carvedilol [Coreg] 12.5 mg PO BID 09/12/16 12/02/16 History Cholecalciferol (Vitamin D3) 50,000 unit PO MO 09/12/16 12/02/16 History [Vitamin D3] Docusate/Senna 50-8.6 [Senokot S] 2 tablet PO BEDTIME PRN 09/12/16 12/02/16 History Dorzolamide/Timolol Oph Soln 1 drop BOTH EYES BID 09/12/16 12/02/16 History [Cosopt] Gabapentin 100 mg PO BEDTIME PRN 09/12/16 12/02/16 History Insulin Detemir [Levemir] 20 units SUBCUT BEDTIME 09/12/16 12/02/16 History Insulin Lispro [HumaLOG] 10 units SUBCUT AC 09/12/16 12/02/16 History Latanoprost 0.005% Oph Soln 1 drop BOTH EYES BEDTIME 09/12/16 12/02/16 History [Xalatan 0.005% Oph Soln] Lisinopril 20 mg PO DAILY 09/12/16 12/02/16 History Mirtazapine [Remeron] 15 mg PO BEDTIME PRN 09/12/16 12/02/16 History Sertraline [Zoloft] 100 mg PO DAILY 09/12/16 12/02/16 History Simvastatin 10 mg PO BEDTIME 09/12/16 12/02/16 History Tamoxifen Tab [Nolvadex] 10 mg PO BID 09/12/16 12/02/16 History amLODIPine [Norvasc] 10 mg PO DAILY 09/12/16 12/02/16 History metFORMIN [Glucophage] 500 mg PO BID W/MEALS 09/12/16 12/02/16 History predniSONE TAB [PredniSONE] 20 mg PO DAILY 09/12/16 12/02/16 History raNITIdine HCl [Ranitidine HCl] 150 mg PO BEDTIME PRN 09/12/16 12/02/16 History Aspirin EC Tab 81 mg PO DAILY #0 tablet 09/15/16 12/02/16 Rx Furosemide Tab [Lasix Tab] 60 mg PO DAILY tablet 09/15/16 12/02/16 Rx Allergies Allergy/AdvReac Type Severity Reaction Status Date / Time No Known Allergies Allergy Unverified 09/12/16 01:01 Medical,Surgical,& Family Hx - Medical History Cardio: History of: Cardiac Dysrhythmia (A-fib), Hypertension, Pacemaker (Right chest), Valvular Heart Disease Psychological: History of: Anxiety Disorders, Depression Neurology: History of: Dementia Endocrine: History of: Diabetes Mellitus (IDDM), Dyslipidemia Respiratory: History of: COPD Renal: History of: Renal Failure (CKD stage 3) Gastrointestinal: History of: GERD Musculoskeletal: History of: Musculoskeletal Problems (arthritis) Hematology: History of: Anemia No history of: Blood Transfusion Reaction Reproductive: History of: Breast Cancer (left) - Surgical History Cardiac Surgeries: Sugical HX of: Internal Defibrillator (Pacemaker) - Social History Smoking Status: Never smoker Frequency of Alcohol Use: None Type of Drug Use: None Marital Status: Single Lives With:: long-term ROS unobtainable: due to mental status, due to dementia Exam - Constitutional Vitals: Period Temp Pulse Resp BP Sys/Chang Pulse Ox Last 24 Hr 97.0 F-97.0 F 61-61 16-18 136-136/51-51 100 General appearance: over weight - Head Head exam: Present: normal inspection - Eye Pupils: Present: CESAR - Neck Neck exam: Present: normal inspection - Respiratory Respiratory exam: Present: clear to auscultation bilaterally - Cardiovascular Cardiovascular exam: Present: regular rate and rhythm - GI/Abdominal GI/Abdominal exam: Present: normal bowel sounds - Extremities Exam Extremities exam: Present: normal inspection - Back Exam Back exam: Present: normal inspection - Neurological Exam Neurological exam: Present: alert, other (Oriented to self only. Follows simple commands) - Psychiatric Psychiatric exam: Present: normal affect - Skin Skin exam: Present: normal color Results - Labs CBC & BMP: 12/02/16 23:00 12/02/16 23:00 Lab Results: I have reviewed the past 24 hour labs - Diagnostic Findings Procedure: Chest x-ray: report reviewed by me (interpreted by AARON), CT: report reviewed by me (interpreted by AARON)
[2016-12-03] MEDS ORDERED: ALBUTEROL 1.25 MG/3 ML NEB RESP TX PRN (03:48)
[2016-12-03] MEDS ORDERED: ONDANSETRON 4 MG/2 ML VIAL IV PRN (03:48)
[2016-12-03] MEDS ORDERED: GLUCAGON 1 MG VIAL IM PRN (03:48)
[2016-12-03] MEDS ORDERED: DEXTROSE 50% 25 GM/50 ML VIAL IV PRN (03:48)
[2016-12-03] MEDS ORDERED: ACETAMINOPHEN 325 MG TABLET PO PRN (03:48)
[2016-12-03] MEDS ORDERED: DOCUSATE/SENNA 50-8.6 MG TABLET PO PRN (03:48)
[2016-12-03] MEDS ORDERED: FAMOTIDINE 20 MG TABLET PO PRN (03:48)
[2016-12-03] MEDS: cefTRIAXone 1,000 MG in SODIUM CHLORIDE 0.9% 100 ML IV SCH ×2 (04:00→08:34)
[2016-12-03] MEDS: SODIUM CHLORIDE 0.9% 1,000 ML IV SCH ×3 (04:00→21:42)
[2016-12-03 04:24] LABS: Anisocytosis 1+; Band Neutrophils 2 % (0-10); Eosinophils 1 % (0-10); Lymphocytes 7 % (20-55); Myelocytes 2 %; Segmented Neutrophils 87 % (50-85); Total Cells Counted 100
[2016-12-03 04:25] LABS: Platelet Estimate Decreased
[2016-12-03] MEDS ORDERED: FLUCONAZOLE INJ 400 MG in PREMIX 1 EACH IV SCH (05:00)
[2016-12-03 07:44] LABS: Albumin 2.6 G/DL (3.4-5.0); Bilirubin,Total 0.5 MG/DL (0.2-1.0); Calcium 8.9 MG/DL (8.5-10.1); Magnesium 2.2 MG/DL (1.8-2.4); Osmolality,Calculated 301.6 MOS/KG (273-304); Potassium 3.8 MMOL/L (3.5-5.1); Thyroid Stimulating Hormone 1.99 uIU/ml (0.358-3.74); Total Protein 4.9 G/DL (6.4-8.3)
[2016-12-03] MEDS: amLODIPine 10 MG TABLET PO SCH (08:33)
[2016-12-03] MEDS: SERTRALINE 100 MG TABLET PO SCH (08:33)
[2016-12-03] MEDS: LISINOPRIL 20 MG TABLET PO SCH (08:33)
[2016-12-03] MEDS: TAMOXIFEN 10 MG TABLET PO SCH ×2 (08:33→21:39)
[2016-12-03] MEDS: CALCIUM (CARBONATE)/VITAMIN D 600 MG-400 UNIT TABLET PO SCH ×2 (08:33→21:38)
[2016-12-03] MEDS: ASPIRIN EC 81 MG TABLET PO SCH (08:34)
[2016-12-03] MEDS: predniSONE 20 MG TABLET PO SCH (08:34)
[2016-12-03] MEDS: CARVEDILOL 12.5 MG TABLET PO SCH ×2 (08:34→21:39)
[2016-12-03] MEDS: INSULIN REGULAR 100 UNIT/ML SUBCUT SCH ×4 (08:37→21:39)
[2016-12-03] MEDS: DORZOLAMIDE/TIMOLOL OPH SOLN 10 ML BOTTLE BOTH EYES SCH ×2 (08:38→21:40)
--- NOTE | 2016-12-03 10:24 | XRay Report ---
XR chest 1V portable Indication: Cough, dyspnea Comparison: 15 Sep 2016 Findings: The heart and mediastinum are stable in size and configuration. Pacemaker device is unchanged in position. The pulmonary vascularity is normal in caliber. No lung infiltrates, effusions, pneumothorax or other abnormality is demonstrated. Impression: No acute cardiopulmonary findings. PROCEDURE INTERPRETED AT [facility] DEPARTMENT OF RADIOLOGY Final Report Signed by: Dr. Dane Shin
--- NOTE | 2016-12-03 10:25 | CT Report ---
CT brain Indication: Headache, altered mental status Comparison: None available Technique: Axial CT imaging of the brain is performed without contrast with 3 mm increments. Findings: No evidence of hemorrhage, mass mass effect midline shift or acute infarct seen. There is severe diffuse cerebral atrophy. There are areas of decreased density seen within the white matter. Focal and cephalization the right cerebellar hemisphere is similar to previous study. Otherwise the brain parenchyma attenuation and differentiation appears within normal limits. The ventricles and cisterns are appropriate in caliber. No cranial or skull base abnormality is identified. Impression: No evidence of acute process or interval change. This CT exam was performed using one or more the following dose reduction techniques: Automated exposure control, adjustment of the MA and/or KV according to patient size, or use of iterative reconstruction technique. PROCEDURE INTERPRETED AT [facility] DEPARTMENT OF RADIOLOGY Final Report Signed by: Dr. Dane Shin
--- NOTE | 2016-12-03 11:27 | Event Note ---
Patient has been seen interviewed and examined and chart has been reviewed. Patient was admitted to the hospital by my colleagues area today. He was altered mental status urinary tract infection which includes presence of budding yeast in the urine. She is a little bit more awake now I will decrease the dose of fluconazole to 100 mg p.o. daily continue ceftriaxone in the meantime. On examination nothing is changed much from what is reported on admission not to be seen again by hospital medicine tomorrow. There is no charge for this assessment
[2016-12-03] MEDS: FLUCONAZOLE 100 MG TABLET PO SCH (12:05)
[2016-12-03] MEDS: SIMVASTATIN 10 MG TABLET PO SCH (21:39)
[2016-12-03] MEDS: LATANOPROST 0.005% OPH SOLN 2.5 ML BOTTLE BOTH EYES SCH (21:41)
[2016-12-04] MEDS: INSULIN REGULAR 100 UNIT/ML SUBCUT SCH ×4 (07:59→23:35)
[2016-12-04] MEDS ORDERED: ERGOCALCIFEROL 50,000 UNIT CAPSULE PO SCH (09:00)
[2016-12-04] MEDS: LISINOPRIL 20 MG TABLET PO SCH (09:09)
[2016-12-04] MEDS: TAMOXIFEN 10 MG TABLET PO SCH ×2 (09:09→20:11)
[2016-12-04] MEDS: CALCIUM (CARBONATE)/VITAMIN D 600 MG-400 UNIT TABLET PO SCH ×2 (09:09→20:11)
[2016-12-04] MEDS: SERTRALINE 100 MG TABLET PO SCH (09:09)
[2016-12-04] MEDS: ASPIRIN EC 81 MG TABLET PO SCH (09:09)
[2016-12-04] MEDS: predniSONE 20 MG TABLET PO SCH (09:09)
[2016-12-04] MEDS: CARVEDILOL 12.5 MG TABLET PO SCH ×2 (09:09→20:11)
[2016-12-04] MEDS: FLUCONAZOLE 100 MG TABLET PO SCH (09:09)
[2016-12-04] MEDS: amLODIPine 10 MG TABLET PO SCH (09:09)
[2016-12-04] MEDS: cefTRIAXone 1,000 MG in SODIUM CHLORIDE 0.9% 100 ML IV SCH (09:10)
[2016-12-04] MEDS: DORZOLAMIDE/TIMOLOL OPH SOLN 10 ML BOTTLE BOTH EYES SCH ×2 (09:13→20:11)
[2016-12-04] MEDS: SODIUM CHLORIDE 0.9% 1,000 ML IV SCH (11:03)
--- NOTE | 2016-12-04 11:35 | Hospitalist Progress Note ---
Assessment and Plan (1) Transaminasemia Status: Acute Assessment and plan: Repeat liver enzymes tomorrow alongside the electrolytes. If there is still elevated or even higher now patient should have a hepatitis profile done. Current Visit: Yes (2) Urinary tract infection Status: Acute Assessment and plan: Patient is isolating Klebsiella pneumonia sensitive to ceftriaxone. Will continue ceftriaxone for now. She also has significant amount of yeast in the urine that was first obtained in the emergency room. Continue fluconazole is for 2 more days. Current Visit: No (3) Altered mental status Status: Acute Assessment and plan: This is improving. She still has baseline dementia. Current Visit: Yes (4) Xerophthalmia Status: Acute Assessment and plan: I am not sure what is causing this. When the patient has a sicca syndrome has not been documented. Will be evaluated for this as an outpatient. The meantime give her some artificial tears. Current Visit: Yes Hospitalist: Subjective Interval history: Patient has been seen interviewed and examined and chart has been reviewed. She is much more awake today. Communication with has difficult because of the tone and language but also suspect some dementia. Patient admitted to the hospital for acute on chronic mental status change candiduria very inflamed urine, cultures isolated Klebsiella pneumonia pansensitive. There is no yeast reported at least on today's microbiology report. She seemed to be doing better On fluconazole and ceftriaxone. Exam - Constitutional Vitals: Period Temp Pulse Resp BP Sys/Chang Pulse Ox Last 24 Hr 97.0 F-98.2 F 60-77 20-22 127-199/58-89 95-98 General appearance: normal weight - Head Head exam: Present: normal inspection, normocephalic, atraumatic - Eye Eye exam: Present: EOMI, other (Rather dry eyes) Pupils: Present: CESAR - Respiratory Respiratory exam: Present: clear to auscultation bilaterally - Cardiovascular Cardiovascular exam: Present: regular rate and rhythm - GI/Abdominal GI/Abdominal exam: Present: normal bowel sounds, soft - Extremities Exam Extremities exam: Present: other (Generalized weakness) - Neurological Exam Neurological exam: Present: alert, CN II-XII intact - Psychiatric Psychiatric exam: Present: normal affect, normal mood - Skin Skin exam: Present: normal color, warm, dry Results - Labs CBC & BMP: 12/02/16 23:00 12/03/16 06:34 Lab Results: I have reviewed the past 24 hour labs (Patient was admitted with some intermittent transient anemia. We will repeat his CMP magnesium and CBC tomorrow alongside a urinalysis with reflex culture) Quality Measures - VTE Contraindication to Pharmacological VTE Prophylaxis: Thrombocytopenia
[2016-12-04] MEDS: POLYVINYL ALCOHOL 1.4% OPH SOLN 15 ML BOTTLE BOTH EYES PRN (20:10)
[2016-12-04] MEDS: LATANOPROST 0.005% OPH SOLN 2.5 ML BOTTLE BOTH EYES SCH (20:10)
[2016-12-04] MEDS: GABAPENTIN 100 MG CAPSULE PO PRN (20:11)
[2016-12-04] MEDS: MIRTAZAPINE 15 MG TABLET PO PRN (20:11)
[2016-12-04] MEDS: SIMVASTATIN 10 MG TABLET PO SCH (20:11)
[2016-12-05] MEDS: SODIUM CHLORIDE 0.9% 1,000 ML IV SCH (03:27)
[2016-12-05 06:51] LABS: Albumin 2.6 G/DL (3.4-5.0); Bilirubin,Total 0.7 MG/DL (0.2-1.0); Calcium 9.6 MG/DL (8.5-10.1); Magnesium 2.2 MG/DL (1.8-2.4); Osmolality,Calculated 303.7 MOS/KG (273-304); Potassium 3.9 MMOL/L (3.5-5.1); Total Protein 5.1 G/DL (6.4-8.3)
[2016-12-05] MEDS: cefTRIAXone 1,000 MG in SODIUM CHLORIDE 0.9% 100 ML IV SCH (08:32)
[2016-12-05] MEDS: INSULIN REGULAR 100 UNIT/ML SUBCUT SCH ×4 (08:33→21:33)
[2016-12-05] MEDS: FLUCONAZOLE 100 MG TABLET PO SCH (08:34)
[2016-12-05] MEDS: SERTRALINE 100 MG TABLET PO SCH (08:34)
[2016-12-05] MEDS: CARVEDILOL 12.5 MG TABLET PO SCH ×2 (08:34→20:38)
[2016-12-05] MEDS: LISINOPRIL 20 MG TABLET PO SCH (08:34)
[2016-12-05] MEDS: TAMOXIFEN 10 MG TABLET PO SCH ×2 (08:34→20:38)
[2016-12-05] MEDS: ASPIRIN EC 81 MG TABLET PO SCH (08:34)
[2016-12-05] MEDS: CALCIUM (CARBONATE)/VITAMIN D 600 MG-400 UNIT TABLET PO SCH ×2 (08:34→20:39)
[2016-12-05] MEDS: amLODIPine 10 MG TABLET PO SCH (08:34)
[2016-12-05] MEDS: predniSONE 20 MG TABLET PO SCH (08:34)
[2016-12-05] MEDS: DORZOLAMIDE/TIMOLOL OPH SOLN 10 ML BOTTLE BOTH EYES SCH ×2 (08:35→20:39)
[2016-12-05 09:15] LABS: Basophils % 0.2 % (0.0-0.8); Eosinophils # 0.1 10*3/uL (0.0-0.87); Eosinophils % 1.3 % (0.00-10.9); Hematocrit 35.8 VOL% (35.7-47.0); Hemoglobin 11.8 GM/DL (12.0-16.0); Immature Granulocytes Absolute 0.17 #; Lymphocytes # 1.2 10*3/uL (1.4-4.0); Mean Corpuscular Hemoglobin 31 PG (27-34); Mean Corpuscular Volume 94.7 FL (87-102); Mean Platelet Volume 12.1 FL (9.6-12.0); Monocytes # 0.5 10*3/uL (0.11-0.8); Monocytes % 5.7 % (1.7-12.7); Neutrophils # 6.6 10*3/uL (1.4-7.4); Neutrophils % 76.8 % (38.7-73.9); Platelet Count 71 T/CUMM (130-400); Red Blood Count 3.78 MC/CUMM (3.8-5.5); Red Cell Distribution Width 17.2 % (9.3-17.3); White Blood Count 8.6 T/CUMM (4-12)
[2016-12-05 09:34] LABS: Platelet Estimate Decreased
[2016-12-05 10:29] LABS: Hepatitis C Virus Ab Quant 0.09 Index; Hepatitis C Virus Ab Result Negative (Negative)
[2016-12-05 10:30] LABS: Hepatitis A Ab IgM Quant 0.14 Index; Hepatitis A Ab IgM Result Negative (Negative); Hepatitis B Core Ab Result Negative (Negative); Hepatitis B Surface Ag Quant 0.52 Index; Hepatitis B Surface Ag Result Negative (Negative)
--- NOTE | 2016-12-05 12:44 | Hospitalist Progress Note ---
Assessment and Plan (1) Transaminasemia Status: Acute Assessment and plan: Patient has persistent transaminasemia. I ordered the hepatitis panel. Hepatitis A IgM negative hepatitis B surface antigen negative hepatitis B core antibody negative hepatitis C antibody negative. On simvastatin at home statin induced hepatitis is a possibility will be judicious to hold the simvastatin and repeat liver enzymes 4-6 weeks later. Current Visit: Yes (2) Urinary tract infection Status: Acute Assessment and plan: Patient is isolating Klebsiella pneumonia sensitive to ceftriaxone. Will continue ceftriaxone for now. She also has significant amount of yeast in the urine that was first obtained in the emergency room. Continue fluconazole is for 2 more days. Current Visit: No (3) Altered mental status Status: Acute Assessment and plan: This is improving. She still has baseline dementia. Current Visit: Yes (4) Xerophthalmia Status: Acute Assessment and plan: Better with artificial tear Current Visit: Yes Hospitalist: Subjective Interval history: Patient has been seen interviewed and examined chart has been reviewed she is much more awake now. Still is a language problem. Patient does have baseline dementia. Admitted to the hospital with Increased confusion found to urinary tract infection. She does have history of COPD anxiety depression dementia diabetes dyslipidemia and a history of breast cancer. Status post left radical mastectomy. She is on tamoxifen. High urine isolated Serum ammonia with conventional beta-lactamase phenotype Exam - Constitutional Vitals: Period Temp Pulse Resp BP Sys/Chang Pulse Ox Last 24 Hr 97.0 F-99.2 F 63-70 18-20 130-155/58-72 93-100 General appearance: normal weight, no acute distress - Head Head exam: Present: normocephalic, atraumatic - Eye Eye exam: Present: EOMI Pupils: Present: CESAR - Respiratory Respiratory exam: Present: clear to auscultation bilaterally - Cardiovascular Cardiovascular exam: Present: regular rate and rhythm - GI/Abdominal GI/Abdominal exam: Present: normal bowel sounds, soft - Extremities Exam Extremities exam: Present: other (Generalized weakness over elderly deconditioning optimal range of motion) - Neurological Exam Neurological exam: Present: alert, CN II-XII intact, other (Baseline dementia) - Psychiatric Psychiatric exam: Present: other (Pleasantly confused) - Skin Skin exam: Present: normal color, warm, dry Results - Labs CBC & BMP: 12/05/16 05:22 12/05/16 05:22 Lab Results: I have reviewed the past 24 hour labs Quality Measures - VTE Contraindication to Pharmacological VTE Prophylaxis: Thrombocytopenia
--- NOTE | 2016-12-05 15:03 | Physician Query Form ---
CLICK EDIT DOCUMENT TO SELECT QUERY ANSWER --> OK --> SIGN Abida Crespo RN Clinical Telecom Field Technician W) [phone] (f) [phone] [email or web address]: Make your selection(s) from the choices in EACH section by typing an "x" and enter comments in the comment section. Please use your independent medical judgment in providing your response. This request does not imply that any particular answer is desired or expected. CLINICAL INDICATORS: (Providers should not edit this section) Based on lab result of creatinine on admission of 1.20 with a GFR of 49 and decreased to 0.80. Pt. treated with IV fluids of Normal Saline. Pt. has documented CKD stage 3. Clarify which of the following most accurately represents the patient's renal status: ( ) Acute renal failure ( ) Acute renal failure with underlying Chronic Kidney Disease (CKD) - please provide stage below ( ) CKD - please provide stage below ( ) Other, please specify: ( ) Clinically unable to determine Chronic Kidney Disease Stages Source: National Kidney Disease Foundation ( ) Stage I (eGFR > or = 90) ( ) Stage II (eGFR 60 - 89) ( ) Stage III (eGFR 30 - 59) ( ) Stage IV (eGFR 15 - 29) ( ) Stage V (eGFR < 15 or dialysis) COMMENTS: PLEASE ALSO DOCUMENT RESPONSE IN PROGRESS NOTES AND/OR DISCHARGE SUMMARY Use of terms such as suspected, likely, or probable (associated with a specific diagnosis that is being evaluated, monitored, or treated as if it exists) are acceptable and can be restated in the discharge summary if not ruled out. MTDD
[2016-12-05] MEDS: metFORMIN 500 MG TABLET PO SCH (17:54)
[2016-12-05] MEDS: MIRTAZAPINE 15 MG TABLET PO PRN (20:38)
[2016-12-05] MEDS: GABAPENTIN 100 MG CAPSULE PO PRN (20:38)
[2016-12-05] MEDS: LATANOPROST 0.005% OPH SOLN 2.5 ML BOTTLE BOTH EYES SCH (20:39)
[2016-12-05] MEDS: POLYVINYL ALCOHOL 1.4% OPH SOLN 15 ML BOTTLE BOTH EYES PRN (20:39)
[2016-12-05] MEDS ORDERED: INSULIN GLARGINE 100 UNIT/ML SUBCUT SCH (21:00)
[2016-12-06] MEDS: cefTRIAXone 1,000 MG in SODIUM CHLORIDE 0.9% 100 ML IV SCH (09:21)
[2016-12-06] MEDS: ASPIRIN EC 81 MG TABLET PO SCH (09:22)
[2016-12-06] MEDS: CARVEDILOL 12.5 MG TABLET PO SCH (09:22)
[2016-12-06] MEDS: CALCIUM (CARBONATE)/VITAMIN D 600 MG-400 UNIT TABLET PO SCH (09:22)
[2016-12-06] MEDS: LISINOPRIL 20 MG TABLET PO SCH (09:22)
[2016-12-06] MEDS: metFORMIN 500 MG TABLET PO SCH (09:22)
[2016-12-06] MEDS: INSULIN REGULAR 100 UNIT/ML SUBCUT SCH ×2 (09:22→12:30)
[2016-12-06] MEDS: TAMOXIFEN 10 MG TABLET PO SCH (09:22)
[2016-12-06] MEDS: SERTRALINE 100 MG TABLET PO SCH (09:22)
[2016-12-06] MEDS: FLUCONAZOLE 100 MG TABLET PO SCH (09:22)
[2016-12-06] MEDS: amLODIPine 10 MG TABLET PO SCH (09:22)
[2016-12-06] MEDS: predniSONE 20 MG TABLET PO SCH (09:22)
[2016-12-06] MEDS: DORZOLAMIDE/TIMOLOL OPH SOLN 10 ML BOTTLE BOTH EYES SCH (09:24)
--- NOTE | 2016-12-06 11:49 | Discharge Summary ---
Hospital Course - Hospital Course Hospital Course: This is a chronically ill 76-year-old female that presented to the ED at [facility] on December 02, 2016 from the [facility] for the evaluation of altered mental status. The patient has a medical history significant for hypertension, valvular heart disease, anxiety, depression, dementia, insulin-dependent diabetes mellitus, dyslipidemia, chronic obstructive pulmonary disease, gastroesophageal reflux disease, arthritis, anemia, carcinoma of the breast. The patient reported no significant surgical history. According to the senior living staff, the patient' s baseline is altered however they noted an increase in confusion during the nighttime hours. The patient was also noted to have elevated blood sugars on multiple occasions at the senior living. They reported that the patient had been frequenting the vending machines purchasing and eating candy bars on the day of presentation. Due to the severity of the patient's mental status, the patient was subsequently transported to [facility] for further evaluation. At the time of ED presentation, the patient was altered. The patient had multiple variations in her mental status from coherent and incoherent. CT of the brain without contrast was essentially negative for any acute intracranial processes. Labs were obtained which were significant for a BUN noted at 43, creatinine 1.20, glucose 415, lactic acid 2.4, AST 47, ALT 72, alkaline phosphatase 183, hemoglobin 10.6, hematocrit 32.4, and platelet count is 69. Urinalysis was significant for positive findings of nitrate, urobilinogen greater than 2.0, white blood cell count was noted at 2, occasional squamous epithelial cells bacteria and a moderate amount of yeast was noted. The patient was subsequently admitted to the hospitalist service for continuation of care. Gentle rehydration and empiric antibiotics were initiated. Due to the presence of [place] in the patient's urine, antifungal agents were also initiated. Urine culture were obtained. On December 03, 2016, urine cultures were noted to be positive for Klebsiella pneumoniae; antibiotic coverage continued. The patient' s mental status gradually improved however the patient remained altered. The patient's condition is stable. She has not experienced any significant overnight events. The patient's vital signs are stable. Today, we feel that she is indeed appropriate for discharge back to the [facility] for continuation of care. Discharge Plan - Discharge Medications No Action Dorzolamide/Timolol Oph Soln [Cosopt] 1 drop BOTH EYES BID Tamoxifen Tab [Nolvadex] 10 mg PO BID predniSONE TAB [PredniSONE] 20 mg PO DAILY Insulin Lispro [HumaLOG] 10 units SUBCUT AC Cholecalciferol (Vitamin D3) [Vitamin D3] 50,000 unit PO MO Insulin Detemir [Levemir] 20 units SUBCUT BEDTIME Calcium Carbonate/Vitamin D3 [Calcium 600 + Vit D Tablet] 1 each PO BID Albuterol Neb [Proventil Neb] 1.25 mg RESP TX Q4H PRN PRN Reason: Shortness Of Breath/Wheezing raNITIdine HCl [Ranitidine HCl] 150 mg PO BEDTIME PRN PRN Reason: Indigestion Mirtazapine [Remeron] 15 mg PO BEDTIME PRN PRN Reason: Sleep Docusate/Senna 50-8.6 [Senokot S] 2 tablet PO BEDTIME PRN PRN Reason: Constipation Gabapentin 100 mg PO BEDTIME PRN PRN Reason: neuropathy Simvastatin 10 mg PO BEDTIME metFORMIN [Glucophage] 500 mg PO BID W/MEALS amLODIPine [Norvasc] 10 mg PO DAILY Carvedilol [Coreg] 12.5 mg PO BID Furosemide Tab [Lasix Tab] 60 mg PO DAILY tablet Latanoprost 0.005% Oph Soln [Xalatan 0.005% Oph Soln] 1 drop BOTH EYES BEDTIME Sertraline [Zoloft] 100 mg PO DAILY Lisinopril 20 mg PO DAILY Aspirin EC Tab 81 mg PO DAILY #0 tablet - Follow Up or Referral - Forms/Instructions Exam - Constitutional Vitals: Period Temp Pulse Resp BP Sys/Chang Pulse Ox Last 24 Hr 97.1 F-98.4 F 62-73 18-20 95-165/66-79 97-100 Discharge Results Procedures and tests throughout hospitalization: Pending Orders 12/02/16 23:00 Blood Culture Stat Labs on day of discharge: Labs from last 24 hours 12/06/16 12/06/16 12/05/16 07:06 06:17 23:27 POC Glucose 195 H 199 H 302 H 12/05/16 12/05/16 20:48 16:10 POC Glucose 364 H 438 H Preliminary micro results at discharge 12/02/16 23:00 Blood Culture - Preliminary Blood No growth at 3 days 12/02/16 23:00 Blood Culture - Preliminary Blood No growth at 3 days DS: Provider Date of admission: 12/03/16 01:25 Primary care physician: Nina Lynn MD Attending physician on admission: Umer Ramirez MD Discharging clinician: Luis Tobias CNP
--- NOTE | 2016-12-06 12:02 | Discharge Summary ---
Hospital Course - Hospital Course Hospital Course: This is a chronically ill 76-year-old female that presented to the ED at [facility] on December 02, 2016 from the [facility] for the evaluation of altered mental status. The patient has a medical history significant for hypertension, valvular heart disease, anxiety, depression, dementia, insulin-dependent diabetes mellitus, dyslipidemia, chronic obstructive pulmonary disease, gastroesophageal reflux disease, arthritis, anemia, carcinoma of the breast. The patient reported no significant surgical history. According to the snf staff, the patient' s baseline is altered however they noted an increase in confusion during the nighttime hours. The patient was also noted to have elevated blood sugars on multiple occasions at the snf. They reported that the patient had been frequenting the vending machines purchasing and eating candy bars on the day of presentation. Due to the severity of the patient's mental status, the patient was subsequently transported to [facility] for further evaluation. At the time of ED presentation, the patient was altered. The patient had multiple variations in her mental status from coherent and incoherent. CT of the brain without contrast was essentially negative for any acute intracranial processes. Labs were obtained which were significant for a BUN noted at 43, creatinine 1.20, glucose 415, lactic acid 2.4, AST 47, ALT 72, alkaline phosphatase 183, hemoglobin 10.6, hematocrit 32.4, and platelet count is 69. Urinalysis was significant for positive findings of nitrate, urobilinogen greater than 2.0, white blood cell count was noted at 2, occasional squamous epithelial cells bacteria and a moderate amount of yeast was noted. The patient was subsequently admitted to the hospitalist service for continuation of care. Gentle rehydration and empiric antibiotics were initiated. Due to the presence of Chio in the patient's urine, antifungal agents were also initiated. Urine culture were obtained. On December 03, 2016, urine cultures were noted to be positive for Klebsiella pneumoniae; antibiotic coverage continued. The patient' s mental status gradually improved however the patient remained altered. The patient's condition is stable. She has not experienced any significant overnight events. The patient's vital signs are stable. Today, we feel that she is indeed appropriate for discharge back to the [facility] for continuation of care. Diagnosis - Discharge Diagnosis (1) Transaminasemia Status: Acute (2) Urinary tract infection Status: Acute (3) Altered mental status Status: Acute (4) Xerophthalmia Status: Acute Discharge Plan - Discharge Data Disposition: Disch/Xfer to [facility] Condition at Discharge: Stable Discharge Diet: diabetic diet, heart healthy Activity: resume usual activities as tolerated Weight Bearing at Discharge: weight bear as tolerated Driving: other (No driving expect) Contact your physician if you experience:: fever over 101, Difficulty voiding, Redness or swelling, Nausea/Vomiting, Shortness of breath, Bleeding - Discharge Medications New Polyvinyl Alcohol 1.4% Oph Gilda [Artificial Tears Oph Soln] 1 drop BOTH EYES QID PRN #1 bottle PRN Reason: Dry Eyes Continue Dorzolamide/Timolol Oph Soln [Cosopt] 1 drop BOTH EYES BID Tamoxifen Tab [Nolvadex] 10 mg PO BID predniSONE TAB [PredniSONE] 20 mg PO DAILY Insulin Lispro [HumaLOG] 10 units SUBCUT AC Cholecalciferol (Vitamin D3) [Vitamin D3] 50,000 unit PO MO Insulin Detemir [Levemir] 20 units SUBCUT BEDTIME Calcium Carbonate/Vitamin D3 [Calcium 600 + Vit D Tablet] 1 each PO BID Albuterol Neb [Proventil Neb] 1.25 mg RESP TX Q4H PRN PRN Reason: Shortness Of Breath/Wheezing raNITIdine HCl [Ranitidine HCl] 150 mg PO BEDTIME PRN PRN Reason: Indigestion Mirtazapine [Remeron] 15 mg PO BEDTIME PRN PRN Reason: Sleep Docusate/Senna 50-8.6 [Senokot S] 2 tablet PO BEDTIME PRN PRN Reason: Constipation Gabapentin 100 mg PO BEDTIME PRN PRN Reason: neuropathy metFORMIN [Glucophage] 500 mg PO BID W/MEALS amLODIPine [Norvasc] 10 mg PO DAILY Carvedilol [Coreg] 12.5 mg PO BID Furosemide Tab [Lasix Tab] 60 mg PO DAILY tablet Latanoprost 0.005% Oph Soln [Xalatan 0.005% Oph Soln] 1 drop BOTH EYES BEDTIME Sertraline [Zoloft] 100 mg PO DAILY Lisinopril 20 mg PO DAILY Aspirin EC Tab 81 mg PO DAILY #0 tablet Discontinued Simvastatin 10 mg PO BEDTIME - Follow Up or Referral - Forms/Instructions Exam - Constitutional Vitals: Period Temp Pulse Resp BP Sys/Chang Pulse Ox Last 24 Hr 97.1 F-98.4 F 62-73 18-20 95-165/66-79 97-100 General appearance: normal weight - Head Head exam: Present: normocephalic, atraumatic - Eye Eye exam: Present: EOMI Pupils: Present: CESAR - ENT ENT exam: Present: normal exam - Neck Neck exam: Present: normal inspection - Respiratory Respiratory exam: Present: clear to auscultation bilaterally - Cardiovascular Cardiovascular exam: Present: regular rate and rhythm - Extremities Exam Extremities exam: Present: full ROM - Neurological Exam Neurological exam: Present: alert, CN II-XII intact, other (Mild dementia) - Psychiatric Psychiatric exam: Present: normal affect, normal mood - Skin Skin exam: Present: normal color, warm, dry Discharge Results Procedures and tests throughout hospitalization: Pending Orders 12/02/16 23:00 Blood Culture Stat Labs on day of discharge: Labs from last 24 hours 12/06/16 12/06/16 12/05/16 07:06 06:17 23:27 POC Glucose 195 H 199 H 302 H 12/05/16 12/05/16 20:48 16:10 POC Glucose 364 H 438 H Preliminary micro results at discharge 12/02/16 23:00 Blood Culture - Preliminary Blood No growth at 3 days 12/02/16 23:00 Blood Culture - Preliminary Blood No growth at 3 days DS: Provider Date of admission: 12/03/16 01:25 Primary care physician: Nina Lynn MD Attending physician on admission: Umer Ramirez MD Discharging clinician: Leland Mary MD
[2016-12-06 12:17] VITALS: BP 143/57
--- NOTE | 2016-12-07 16:48 | Physician Query Form ---
CLICK EDIT DOCUMENT TO SELECT QUERY ANSWER --> OK --> SIGN Abida Crespo RN Clinical Licensed Veterinary Technician W) [phone] (f) [phone] [email or web address] PROVIDERS: Make your selection(s) from the choices in EACH section by typing an "x" and enter comments in the comment section. Please use your independent medical judgment in providing your response. This request does not imply that any particular answer is desired or expected. CLINICAL INDICATORS: (Providers should not edit this section) Based on lab result of creatinine on admission of 1.20 with a GFR of 49 and decreased to 0.80. Pt. treated with IV fluids of Normal Saline. Pt. has documented CKD stage 3. Clarify which of the following most accurately represents the patient's renal status: ( x) Acute kidney injury (non-traumatic) ( ) Acute renal failure ( ) Acute renal failure with underlying Chronic Kidney Disease (CKD) - please provide stage below ( ) CKD - please provide stage below ( ) Other, please specify: ( ) Clinically unable to determine Chronic Kidney Disease Stages Source: National Kidney Disease Foundation ( ) Stage I (eGFR > or = 90) ( ) Stage II (eGFR 60 - 89) ( ) Stage III (eGFR 30 - 59) ( ) Stage IV (eGFR 15 - 29) ( ) Stage V (eGFR < 15 or dialysis) COMMENTS: PLEASE ALSO DOCUMENT RESPONSE IN PROGRESS NOTES AND/OR DISCHARGE SUMMARY Use of terms such as suspected, likely, or probable (associated with a specific diagnosis that is being evaluated, monitored, or treated as if it exists) are acceptable and can be restated in the discharge summary if not ruled out. MTDD
--- NOTE | 2016-12-07 16:50 | Physician Query Form ---
CLICK EDIT DOCUMENT TO SELECT QUERY ANSWER --> OK --> SIGN Abida Crespo RN Clinical Strategic Sourcing Manager W) [phone] (f) [phone] [email or web address] PROVIDERS: Make your selection(s) from the choices in EACH section by typing an "x" and enter comments in the comment section. Please use your independent medical judgment in providing your response. This request does not imply that any particular answer is desired or expected. CLINICAL INDICATORS: (Providers should not edit this section) Pt. admitted with UTI. Based on documentation of "Due to the presence of Chio in the patient's urine, antifungal agents were also initiated. Urine cultures were noted to be positive for Klebsiella pneumoniae; antibiotic coverage continued". Based on the above, could you clarify the appropriate diagnosis, if significant , that supports the above abnormalities and additional evaluation, monitoring, and/or treatment rendered: ( ) UTI due to chio ( ) UTI due to Klebsiella pneumoniae ( x) UTI due to chio and Klebsiella pneumoniae ( ) Other, please specify: ( ) Clinically unable to determine COMMENTS: PLEASE ALSO DOCUMENT RESPONSE IN PROGRESS NOTES AND/OR DISCHARGE SUMMARY Use of terms such as suspected, likely, or probable (associated with a specific diagnosis that is being evaluated, monitored, or treated as if it exists) are acceptable and can be restated in the discharge summary if not ruled out. MTDD
== END 2016-12-06 14:50 | DRG 758 ==
LOC: EDUNIT# → EDBD → N.ED 21:51 → N.EDINP 12-03 01:25 → SUATTDRO 12-03 01:25 → N.2E 12-03 03:12
PROVIDERS: ADMIT Family Medicine; ATTEND Internal Medicine Infectious Disease

== ENCOUNTER 2017-01-27 19:04 | Inpatient (IN) ==
--- NOTE | 2017-01-27 19:27 | Emergency Department Note ---
Arrival - Arrival Chief Complaint: Urogenital - Female ED Nursing Triage Note: pt was transferred from [facility] with uti, renal failure, confusion, found on floor with no obvious injuries. EMS reports that CT head/ spine was negative. 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 Results of her evaluation revealed no significant injuries including a CT scan of the cervical spine and the head which revealed no injury. However the patient previously had normal renal function demonstrated creatinine 3.6 and a BUN of 97 precipitating her transfer here. Likewise notable in the workup was evidence of a urinary tract infection. Currently the patient is disoriented and can give no cognizant history. Currently she is an in no acute medical distress. Onset (ago): unknown Allergies/Adverse Reactions: Allergies Allergy/AdvReac Type Severity Reaction Status Date / Time No Known Allergies Allergy Unverified 09/12/16 01:01 Home Medications: Home Medications Medication Instructions Recorded Confirmed Type Albuterol Neb [Proventil Neb] 1.25 mg RESP TX Q4H PRN 09/12/16 12/02/16 History Calcium Carbonate/Vitamin D3 1 each PO BID 09/12/16 12/02/16 History [Calcium 600 + Vit D Tablet] Carvedilol [Coreg] 12.5 mg PO BID 09/12/16 12/02/16 History Cholecalciferol (Vitamin D3) 50,000 unit PO MO 09/12/16 12/02/16 History [Vitamin D3] Docusate/Senna 50-8.6 [Senokot S] 2 tablet PO BEDTIME PRN 09/12/16 12/02/16 History Dorzolamide/Timolol Oph Soln 1 drop BOTH EYES BID 09/12/16 12/02/16 History [Cosopt] Gabapentin 100 mg PO BEDTIME PRN 09/12/16 12/02/16 History Insulin Detemir [Levemir] 20 units SUBCUT BEDTIME 09/12/16 12/02/16 History Insulin Lispro [HumaLOG] 10 units SUBCUT AC 09/12/16 12/02/16 History Latanoprost 0.005% Oph Soln 1 drop BOTH EYES BEDTIME 09/12/16 12/02/16 History [Xalatan 0.005% Oph Soln] Lisinopril 20 mg PO DAILY 09/12/16 12/02/16 History Mirtazapine [Remeron] 15 mg PO BEDTIME PRN 09/12/16 12/02/16 History Sertraline [Zoloft] 100 mg PO DAILY 09/12/16 12/02/16 History Tamoxifen Tab [Nolvadex] 10 mg PO BID 09/12/16 12/02/16 History amLODIPine [Norvasc] 10 mg PO DAILY 09/12/16 12/02/16 History metFORMIN [Glucophage] 500 mg PO BID W/MEALS 09/12/16 12/02/16 History predniSONE TAB [PredniSONE] 20 mg PO DAILY 09/12/16 12/02/16 History raNITIdine HCl [Ranitidine HCl] 150 mg PO BEDTIME PRN 09/12/16 12/02/16 History Aspirin EC Tab 81 mg PO DAILY #0 tablet 09/15/16 12/02/16 Rx Furosemide Tab [Lasix Tab] 60 mg PO DAILY tablet 09/15/16 12/02/16 Rx Polyvinyl Alcohol 1.4% Oph Gilda 1 drop BOTH EYES QID PRN #1 bottle 12/06/16 Rx [Artificial Tears Oph Soln] Review of System - Review of System ROS unobtainable: due to mental status Medical,Surgical,& Family Hx - Medical History Cardio: History of: Cardiac Dysrhythmia (A-fib), Hypertension, Pacemaker (Right chest), Valvular Heart Disease No history of: [place] Psychological: History of: Anxiety Disorders, Depression Neurology: History of: Dementia No history of: Cerebrovascular Accident, Seizures, TIA Endocrine: History of: Diabetes Mellitus (IDDM), Dyslipidemia No history of: Thyroid Disorder Respiratory: History of: COPD, Pulmonary Hypertension Renal: History of: Renal Failure (CKD stage 3) Genitourinary: History of: Recurring Urinary Tract Infections Gastrointestinal: History of: GERD Musculoskeletal: History of: Musculoskeletal Problems (arthritis) Hematology: History of: Anemia No history of: Blood Transfusion Reaction Reproductive: History of: Breast Cancer (appears to have left mastectomy scars. patient unable to elaborate history) Other: No history of: Cancer - Surgical History Cardiac Surgeries: Sugical HX of: Internal Defibrillator (Pacemaker) Neurologic Surgeries: Patient denies: Neurologic Surgery Reproductive Surgeries: Surgical HX of;: Breast Surgery - Social History Smoking Status: Never smoker Frequency of Alcohol Use: None Type of Drug Use: None Exam Physical Examination: GENERAL: Chronically ill-appearing [place] female in no acute distress. HEENT: Normocephalic. No trauma. Moist mucous membranes. EOMI. PERRLA. ENT NML NECK: Supple. No adenopathy. CARDIAC: Regular. No murmurs. Heart rate 60 CHEST: Clear to auscultation. No respiratory distress. O2 sat 90 ABDOMEN: Soft. Nontender. Active bowel sounds. EXTREMITIES: No trauma. Normal ROM. No pedal edema. SKIN: No diaphoresis. No rash. Devine pallor NEURO: Alert but confused. Motor, sensory, vibratory intact. No focal deficits. Vital Signs: Vital Signs Temperature 96.1 F L 01/27/17 19:04 Pulse Rate 71 01/27/17 19:04 Respiratory Rate 17 01/27/17 19:04 Blood Pressure 102/36 01/27/17 19:04 O2 Sat by Pulse Oximetry 98 01/27/17 19:04 Course - Consultations Consultation #1: Discussed with hospitalist service who will admit for further evaluation treatment. Results - Labs Labs: Lab per Irvin white blood cell count 10,000 hematocrit 37 BUN 97 creatinine 3.6 calcium 10.3 potassium 4.2 sodium 138 - Impressions EKG per Irvin revealed ventricularly paced rhythm without other commentary to be made - Diagnostic Findings Procedure: CT: image reviewed by me, report reviewed by me (Per Irvin: CT head /cervical spine no acute injuries) Disposition Clinical Impression: Renal failure, Dementia Disposition: Still a Patient Condition: Guarded Time of Disposition: 20:11
[2017-01-27] MEDS ORDERED: LEVOFLOXACIN INJ 750 MG in PREMIX 1 EACH IV STA (19:32)
[2017-01-27] MEDS ORDERED: BISACODYL 5 MG TABLET PO PRN (20:43)
[2017-01-27] MEDS ORDERED: ONDANSETRON 4 MG/2 ML VIAL IV PRN (20:43)
[2017-01-27] MEDS ORDERED: DEXTROSE 50% 25 GM/50 ML VIAL IV PRN (20:43)
[2017-01-27] MEDS ORDERED: ACETAMINOPHEN 325 MG TABLET PO PRN (20:43)
[2017-01-27] MEDS ORDERED: DEXTROSE 50% 25 GM/50 ML SYRINGE IV PRN (20:43)
[2017-01-27] MEDS ORDERED: GLUCAGON 1 MG VIAL IM PRN ×2 (20:43)
[2017-01-27] MEDS ORDERED: ALBUTEROL 1.25 MG/3 ML NEB RESP TX PRN (20:48)
--- NOTE | 2017-01-27 20:52 | Hospitalist History & Physical ---
Assessment and Plan (1) Urinary tract infection Status: Acute Assessment and plan: Blood cultures urine cultures drawn. Empirically started on Levaquin. Current Visit: No (2) Dementia Status: Chronic Current Visit: No (3) UTI (urinary tract infection) Status: Acute Assessment and plan: Continue with antibiotics include Levaquin 500 mg IV daily. Current Visit: No (4) Dehydration Status: Acute Assessment and plan: Continue with IV fluids normal saline at 100 cc an hour. Strict I's and O's. Current Visit: No (5) Diabetes mellitus with hyperglycemia Status: Chronic Current Visit: No Qualifiers: Diabetes mellitus type: type 2 (6) CKD (chronic kidney disease) stage 3, GFR 30-59 ml/min Status: Chronic Assessment and plan: More likely acute on chronic renal failure. Will hold lisinopril. \We will also hold metformin. Continue with IV fluids. Daily BMP. Current Visit: No History of Present Illness Chief complaint: Volume depletion, acute on chronic renal failure, urinary tract infection History of present illness: The patient is a poor historian. Most of the history is from the chart and old records. Ms. Rausch is a 76 year old female with a history of chronic kidney disease due to hypertension and diabetes. Patient also has a history of atrial fibrillation currently has a pacemaker in place history of COPD, GERD dementia and history of left mastectomy. Per outside records it was noted the patient was sitting on her bed where she slipped onto the floor. He was an unwitnessed fall there was concern of patient hitting her head. She had a CT scan of the head that showed no acute intracranial abnormality as well as a CT of the neck that showed no acute cervical injuries but multilevel cervical spondylosis noted. The patient had complained of right-sided neck pain and facial pain. On further evaluation patient was found to have a urinary tract infection serum creatinine was noted to be 3.6. She was transferred to [facility] and has been receiving antibiotics as well as IV fluids. Is difficult to determine if there is any other changes in patient's medicines. Again patient is not able to quantify her pain on my interview. At this time admitting for IV fluids and antibiotics. Home Medications Medication Instructions Recorded Confirmed Type Albuterol Neb [Proventil Neb] 1.25 mg RESP TX Q4H PRN 09/12/16 12/02/16 History Calcium Carbonate/Vitamin D3 1 each PO BID 09/12/16 12/02/16 History [Calcium 600 + Vit D Tablet] Carvedilol [Coreg] 12.5 mg PO BID 09/12/16 12/02/16 History Cholecalciferol (Vitamin D3) 50,000 unit PO MO 09/12/16 12/02/16 History [Vitamin D3] Docusate/Senna 50-8.6 [Senokot S] 2 tablet PO BEDTIME PRN 09/12/16 12/02/16 History Dorzolamide/Timolol Oph Soln 1 drop BOTH EYES BID 09/12/16 12/02/16 History [Cosopt] Gabapentin 100 mg PO BEDTIME PRN 09/12/16 12/02/16 History Insulin Detemir [Levemir] 20 units SUBCUT BEDTIME 09/12/16 12/02/16 History Insulin Lispro [HumaLOG] 10 units SUBCUT AC 09/12/16 12/02/16 History Latanoprost 0.005% Oph Soln 1 drop BOTH EYES BEDTIME 09/12/16 12/02/16 History [Xalatan 0.005% Oph Soln] Lisinopril 20 mg PO DAILY 09/12/16 12/02/16 History Mirtazapine [Remeron] 15 mg PO BEDTIME PRN 09/12/16 12/02/16 History Sertraline [Zoloft] 100 mg PO DAILY 09/12/16 12/02/16 History Tamoxifen Tab [Nolvadex] 10 mg PO BID 09/12/16 12/02/16 History amLODIPine [Norvasc] 10 mg PO DAILY 09/12/16 12/02/16 History metFORMIN [Glucophage] 500 mg PO BID W/MEALS 09/12/16 12/02/16 History predniSONE TAB [PredniSONE] 20 mg PO DAILY 09/12/16 12/02/16 History raNITIdine HCl [Ranitidine HCl] 150 mg PO BEDTIME PRN 09/12/16 12/02/16 History Aspirin EC Tab 81 mg PO DAILY #0 tablet 09/15/16 12/02/16 Rx Furosemide Tab [Lasix Tab] 60 mg PO DAILY tablet 09/15/16 12/02/16 Rx Polyvinyl Alcohol 1.4% Oph Gilda 1 drop BOTH EYES QID PRN #1 bottle 12/06/16 Rx [Artificial Tears Oph Soln] Allergies Allergy/AdvReac Type Severity Reaction Status Date / Time No Known Allergies Allergy Unverified 09/12/16 01:01 Medical,Surgical,& Family Hx - Medical History Cardio: History of: Cardiac Dysrhythmia (A-fib), Hypertension, Pacemaker (Right chest), Valvular Heart Disease No history of: [place] Psychological: History of: Anxiety Disorders, Depression Neurology: History of: Dementia No history of: Cerebrovascular Accident, Seizures, TIA Endocrine: History of: Diabetes Mellitus (IDDM), Dyslipidemia No history of: Thyroid Disorder Respiratory: History of: COPD, Pulmonary Hypertension Renal: History of: Renal Failure (CKD stage 3) Genitourinary: History of: Recurring Urinary Tract Infections Gastrointestinal: History of: GERD Musculoskeletal: History of: Musculoskeletal Problems (arthritis) Hematology: History of: Anemia No history of: Blood Transfusion Reaction Reproductive: History of: Breast Cancer (appears to have left mastectomy scars. patient unable to elaborate history) Other: No history of: Cancer - Surgical History Cardiac Surgeries: Sugical HX of: Internal Defibrillator (Pacemaker) Neurologic Surgeries: Patient denies: Neurologic Surgery Reproductive Surgeries: Surgical HX of;: Breast Surgery - Social History Smoking Status: Never smoker Frequency of Alcohol Use: None Type of Drug Use: None ROS unobtainable: due to mental status Exam - Constitutional Vitals: Period Temp Pulse Resp BP Sys/Chang Pulse Ox Last 24 Hr 96.1 F-96.1 F 71-71 17-17 102-102/36-36 98 General appearance: over weight - Head Head exam: Present: normal inspection - Eye Pupils: Present: CESAR - Neck Neck exam: Present: normal inspection - Respiratory Respiratory exam: Present: clear to auscultation bilaterally - Cardiovascular Cardiovascular exam: Present: regular rate and rhythm (Pacemaker noted in the left chest.) - GI/Abdominal GI/Abdominal exam: Present: normal bowel sounds - Extremities Exam Extremities exam: Present: normal inspection, other (Very thin extremities) - Neurological Exam Neurological exam: Present: alert - Psychiatric Psychiatric exam: Present: flat affect - Skin Skin exam: Present: warm, dry (Mouth is dry, oropharynx is dry,) Results - Diagnostic Findings Procedure: CT: report reviewed by me (Outside report reviewed shows no intracranial abnormality of the CT head.)
[2017-01-27] MEDS ORDERED: LEVOFLOXACIN INJ 150 ML IV ONE (21:06)
[2017-01-27] MEDS: SODIUM CHLORIDE 0.9% 1,000 ML IV SCH (22:50)
[2017-01-27] MEDS: INSULIN REGULAR 100 UNIT/ML SUBCUT SCH (22:50)
[2017-01-27] MEDS: TAMOXIFEN 10 MG TABLET PO SCH (22:50)
[2017-01-27] MEDS: ENOXAPARIN 30 MG/0.3 ML SYRINGE SUBCUT SCH (22:51)
[2017-01-27] MEDS: LATANOPROST 0.005% OPH SOLN 2.5 ML BOTTLE BOTH EYES SCH (23:39)
[2017-01-27] MEDS: DORZOLAMIDE/TIMOLOL OPH SOLN 10 ML BOTTLE BOTH EYES SCH (23:40)
[2017-01-28 05:44] LABS: Basophils % 0.4 % (0.0-0.8); Eosinophils # 0.1 10*3/uL (0.0-0.87); Eosinophils % 0.6 % (0.00-10.9); Hematocrit 29.8 VOL% (35.7-47.0); Hemoglobin 9.9 GM/DL (12.0-16.0); Immature Granulocytes % 4.9 %; Immature Granulocytes Absolute 0.39 #; Lymphocytes # 0.9 10*3/uL (1.4-4.0); Lymphocytes % 10.7 % (21.3-54.2); Mean Corpuscular HGB Conc 33.2 GM/DL (32-36); Mean Corpuscular Hemoglobin 31 PG (27-34); Mean Corpuscular Volume 92.5 FL (87-102); Mean Platelet Volume 11.8 FL (9.6-12.0); Monocytes # 0.5 10*3/uL (0.11-0.8); Monocytes % 5.9 % (1.7-12.7); NRBC # 0.04 10*3/uL; Neutrophils # 6.2 10*3/uL (1.4-7.4); Neutrophils % 77.5 % (38.7-73.9); Platelet Count 96 T/CUMM (130-400); Red Blood Count 3.22 MC/CUMM (3.8-5.5); Red Cell Distribution Width 14.6 % (9.3-17.3)
[2017-01-28] MEDS: SODIUM CHLORIDE 0.9% 1,000 ML IV SCH (06:15)
[2017-01-28 06:20] LABS: Calcium 9.1 MG/DL (8.5-10.1); Magnesium 2.5 MG/DL (1.8-2.4); Osmolality,Calculated 306.3 MOS/KG (273-304); Potassium 3.4 MMOL/L (3.5-5.1); Thyroid Stimulating Hormone 2.45 uIU/ml (0.358-3.74)
[2017-01-28 07:40] LABS: Band Neutrophils 1 % (0-10); Hypochromasia 1+; Lymphocytes 6 % (20-55); Microcytosis 1+; Platelet Estimate Decreased; Segmented Neutrophils 89 % (50-85); Total Cells Counted 100
[2017-01-28] MEDS: PANTOPRAZOLE 40 MG TABLET PO SCH (08:23)
[2017-01-28] MEDS: TAMOXIFEN 10 MG TABLET PO SCH ×2 (08:23→20:29)
--- NOTE | 2017-01-28 09:05 | XRay Report ---
Single view the chest. Indication: Shortness of breath. Comparison: December 02, 2016. The heart is enlarged. Cardiac hardware is in satisfactory position. There is heavy calcific plaque within the aortic knob. The lung cevallos demonstrate fibrotic change and small volumes. No consolidation, pneumothorax, or pleural effusion. Degenerative changes of the spinal column and shoulders. Impression: Cardiomegaly, and chronic lung changes. No acute abnormality. PROCEDURE INTERPRETED AT [facility] DEPARTMENT OF RADIOLOGY Final Report Signed by: Dr. Anny Kaur
[2017-01-28] MEDS: INSULIN REGULAR 100 UNIT/ML SUBCUT SCH ×4 (09:21→20:29)
[2017-01-28] MEDS: DORZOLAMIDE/TIMOLOL OPH SOLN 10 ML BOTTLE BOTH EYES SCH ×2 (09:21→20:29)
[2017-01-28] MEDS ORDERED: POLYVINYL ALCOHOL 1.4% OPH SOLN 15 ML BOTTLE BOTH EYES PRN (12:00)
--- NOTE | 2017-01-28 12:01 | Hospitalist Progress Note ---
Assessment and Plan (1) Urinary tract infection Status: Acute Assessment and plan: Blood cultures urine cultures drawn. Empirically started on Levaquin. Current Visit: No (2) Dementia Status: Chronic Current Visit: No (3) UTI (urinary tract infection) Status: Acute Assessment and plan: Continue with antibiotics include Levaquin 500 mg IV daily. Current Visit: No (4) Dehydration Status: Acute Assessment and plan: Continue with IV fluids normal saline at 100 cc an hour. Strict I's and O's. This is improving. Current Visit: No (5) Diabetes mellitus with hyperglycemia Status: Chronic Current Visit: No Qualifiers: Diabetes mellitus type: type 2 (6) CKD (chronic kidney disease) stage 3, GFR 30-59 ml/min Status: Chronic Assessment and plan: More likely acute on chronic renal failure. Will hold lisinopril. \We will also hold metformin. Continue with IV fluids. Daily BMP. Current Visit: No Hospitalist: Subjective Interval history: Patient is more awake and alert today. Still has moments of confusion. No fevers or chills. No shortness of breath. Exam - Constitutional Vitals: Period Temp Pulse Resp BP Sys/Chang Pulse Ox Last 24 Hr 96.1 F-98.5 F 62-89 16-18 97-136/36-65 91-100 General appearance: normal weight - Head Head exam: Present: normal inspection - Neck Neck exam: Present: normal inspection - Respiratory Respiratory exam: Present: clear to auscultation bilaterally - Cardiovascular Cardiovascular exam: Present: regular rate and rhythm - GI/Abdominal GI/Abdominal exam: Present: normal bowel sounds - Neurological Exam Neurological exam: Present: alert - Psychiatric Psychiatric exam: Present: normal affect Results - Labs CBC & BMP: 01/28/17 05:29 01/28/17 05:29
[2017-01-28] MEDS: DEXTROSE 5% NACL 0.45% 1,000 ML IV SCH (13:52)
[2017-01-28] MEDS: CALCIUM (CARBONATE)/VITAMIN D 600 MG-400 UNIT TABLET PO SCH (20:28)
[2017-01-28] MEDS: LATANOPROST 0.005% OPH SOLN 2.5 ML BOTTLE BOTH EYES SCH (20:29)
[2017-01-28] MEDS: ENOXAPARIN 30 MG/0.3 ML SYRINGE SUBCUT SCH (21:00)
[2017-01-29] MEDS: DEXTROSE 5% NACL 0.45% 1,000 ML IV SCH (02:57)
[2017-01-29 06:40] LABS: Basophils % 0.5 % (0.0-0.8); Eosinophils # 0.1 10*3/uL (0.0-0.87); Eosinophils % 1.5 % (0.00-10.9); Hematocrit 28.9 VOL% (35.7-47.0); Hemoglobin 10.1 GM/DL (12.0-16.0); Immature Granulocytes % 4.3 %; Immature Granulocytes Absolute 0.26 #; Lymphocytes # 0.7 10*3/uL (1.4-4.0); Lymphocytes % 11.7 % (21.3-54.2); Mean Corpuscular HGB Conc 34.9 GM/DL (32-36); Mean Corpuscular Hemoglobin 32 PG (27-34); Mean Corpuscular Volume 91.7 FL (87-102); Mean Platelet Volume 12.1 FL (9.6-12.0); Monocytes # 0.5 10*3/uL (0.11-0.8); Monocytes % 8.4 % (1.7-12.7); NRBC # 0.03 10*3/uL; Neutrophils # 4.5 10*3/uL (1.4-7.4); Neutrophils % 73.6 % (38.7-73.9); Red Blood Count 3.15 MC/CUMM (3.8-5.5); Red Cell Distribution Width 14.9 % (9.3-17.3); White Blood Count 6.1 T/CUMM (4-12)
[2017-01-29 06:44] LABS: Platelet Count 88 T/CUMM (130-400)
[2017-01-29 07:19] LABS: Calcium 8.4 MG/DL (8.5-10.1); Osmolality,Calculated 305.7 MOS/KG (273-304); Potassium 3.9 MMOL/L (3.5-5.1)
[2017-01-29 07:27] LABS: Giant Platelets Few; Hypochromasia 1+; Microcytosis 1+; Platelet Estimate Decreased
[2017-01-29] MEDS: INSULIN REGULAR 100 UNIT/ML SUBCUT SCH ×4 (09:30→20:46)
[2017-01-29] MEDS: TAMOXIFEN 10 MG TABLET PO SCH ×2 (09:31→20:46)
[2017-01-29] MEDS: CALCIUM (CARBONATE)/VITAMIN D 600 MG-400 UNIT TABLET PO SCH ×2 (09:31→20:46)
[2017-01-29] MEDS: PANTOPRAZOLE 40 MG TABLET PO SCH (09:32)
[2017-01-29] MEDS: DORZOLAMIDE/TIMOLOL OPH SOLN 10 ML BOTTLE BOTH EYES SCH ×2 (09:32→21:15)
[2017-01-29] MEDS: ASPIRIN EC 81 MG TABLET PO SCH (09:32)
--- NOTE | 2017-01-29 10:25 | Hospitalist Progress Note ---
Assessment and Plan (1) Urinary tract infection Status: Acute Assessment and plan: We will continue present antibiotic coverage and await full culture result. Going to discontinue Lovenox on account of thrombocytopenia. Current Visit: No Qualifiers: Urinary tract infection type: acute cystitis (2) Dementia Status: Chronic Current Visit: No Qualifiers: Dementia type: Alzheimer's disease (3) Thrombocytopenia Status: Acute Current Visit: No Hospitalist: Subjective Interval history: Mrs. Rausch is admitted to the hospital with urinary tract infection with gram- negative saira isolated on culture. The patient continues on appropriate IV antibiotics. Platelets are low and we will discontinue Lovenox. Exam - Constitutional Vitals: Period Temp Pulse Resp BP Sys/Chang Pulse Ox Last 24 Hr 96 F-98.3 F 60-78 16-18 110-145/51-78 92-99 Exam: Constitutional System: Mild distress. No tremulousness. The patient is able to interact and speak with 1 and 2 word responses Head: Normocephalic, atraumatic. Ears, Nose and Throat System: No evidence of Otitis or Mastoiditis. No epistaxis or discharge Eyes System: Pupils equal, round, and reactive. Extraocular muscles intact. Neck: Supple, without adenopathy, No jugular venous distention. No thyromegaly , neck mass, or prior surgery apparent. Respiratory System: Chest clear to auscultation. Cardiovascular System: Heart with regular rate and rhythm. No murmur. GI System: Abdomen soft, nontender. Normo active bowel sounds present. Musculoskeletal System: limbs with muscle wasting Neurological System: No discernable sensory deficit. Results - Labs CBC & BMP: 01/29/17 05:59 01/29/17 05:59 Lab Results: I have reviewed the past 24 hour labs
[2017-01-29] MEDS: SODIUM CHLORIDE 0.9% 1,000 ML IV SCH (16:30)
[2017-01-29] MEDS: LATANOPROST 0.005% OPH SOLN 2.5 ML BOTTLE BOTH EYES SCH (20:48)
[2017-01-29] MEDS ORDERED: LEVOFLOXACIN INJ 500 MG in PREMIX 1 EACH IV SCH (21:00)
[2017-01-30] MEDS ORDERED: SODIUM CHLORIDE 0.9% 250 ML IV ONE (04:00)
[2017-01-30 06:58] LABS: Basophils % 0.3 % (0.0-0.8); Eosinophils # 0.1 10*3/uL (0.0-0.87); Eosinophils % 0.9 % (0.00-10.9); Hematocrit 31.6 VOL% (35.7-47.0); Hemoglobin 10.6 GM/DL (12.0-16.0); Immature Granulocytes % 1.9 %; Immature Granulocytes Absolute 0.13 #; Lymphocytes # 0.9 10*3/uL (1.4-4.0); Lymphocytes % 12.8 % (21.3-54.2); Mean Corpuscular HGB Conc 33.5 GM/DL (32-36); Mean Corpuscular Hemoglobin 31 PG (27-34); Mean Corpuscular Volume 92.1 FL (87-102); Mean Platelet Volume 11.4 FL (9.6-12.0); Monocytes # 0.5 10*3/uL (0.11-0.8); Monocytes % 7.5 % (1.7-12.7); NRBC # 0.02 10*3/uL; Neutrophils # 5.2 10*3/uL (1.4-7.4); Neutrophils % 76.6 % (38.7-73.9); Red Blood Count 3.43 MC/CUMM (3.8-5.5); Red Cell Distribution Width 15.3 % (9.3-17.3); White Blood Count 6.8 T/CUMM (4-12)
[2017-01-30 07:19] LABS: Platelet Count 94 T/CUMM (130-400)
[2017-01-30 07:29] LABS: Calcium 8.5 MG/DL (8.5-10.1); Magnesium 2.1 MG/DL (1.8-2.4); Osmolality,Calculated 300.3 MOS/KG (273-304); Potassium 4.2 MMOL/L (3.5-5.1)
[2017-01-30] MEDS: SODIUM CHLORIDE 0.9% 1,000 ML IV SCH (07:29)
[2017-01-30 07:32] LABS: Band Neutrophils 1 % (0-10); Eosinophils 1 % (0-10); Giant Platelets Few; Hypochromasia 1+; Lymphocytes 14 % (20-55); Microcytosis 1+; Ovalocytes Slight; Platelet Estimate Decreased; Segmented Neutrophils 75 % (50-85); Total Cells Counted 100
[2017-01-30] MEDS: DORZOLAMIDE/TIMOLOL OPH SOLN 10 ML BOTTLE BOTH EYES SCH ×2 (09:41→22:43)
[2017-01-30] MEDS: INSULIN REGULAR 100 UNIT/ML SUBCUT SCH ×4 (09:41→22:41)
[2017-01-30] MEDS: CALCIUM (CARBONATE)/VITAMIN D 600 MG-400 UNIT TABLET PO SCH ×2 (09:41→22:41)
[2017-01-30] MEDS: TAMOXIFEN 10 MG TABLET PO SCH ×2 (09:41→22:41)
[2017-01-30] MEDS: PANTOPRAZOLE 40 MG TABLET PO SCH (09:41)
[2017-01-30] MEDS: ASPIRIN EC 81 MG TABLET PO SCH (09:41)
--- NOTE | 2017-01-30 11:44 | Hospitalist Progress Note ---
Assessment and Plan (1) Urinary tract infection Status: Acute Assessment and plan: We will transition antibiotic to Ancef. If feeling better the patient can return to [facility] tomorrow on Keflex. Going to discontinue Lovenox on account of thrombocytopenia. Current Visit: No Qualifiers: Urinary tract infection type: acute cystitis (2) Dementia Status: Chronic Current Visit: No Qualifiers: Dementia type: Alzheimer's disease (3) Thrombocytopenia Status: Acute Current Visit: No Hospitalist: Subjective Interval history: Mrs. Rausch complains of bilateral lower quadrant discomfort. The discomfort is mild, continuous, and has a crampy quality. Exam - Constitutional Vitals: Period Temp Pulse Resp BP Sys/Chang Pulse Ox Last 24 Hr 94.0 F-97.6 F 57-72 16-20 72-123/40-75 92-100 Exam: Constitutional System: Mild distress. No tremulousness. The patient is able to interact and speak with 1 and 2 word responses Head: Normocephalic, atraumatic. Ears, Nose and Throat System: No evidence of Otitis or Mastoiditis. No epistaxis or discharge Eyes System: Pupils equal, round, and reactive. Extraocular muscles intact. Neck: Supple, without adenopathy, No jugular venous distention. No thyromegaly , neck mass, or prior surgery apparent. Respiratory System: Chest clear to auscultation. Cardiovascular System: Heart with regular rate and rhythm. No murmur. GI System: Abdomen soft, nontender. Normo active bowel sounds present. Musculoskeletal System: limbs with muscle wasting Neurological System: No discernable sensory deficit. Results - Labs CBC & BMP: 01/30/17 06:47 01/30/17 06:47 Lab Results: I have reviewed the past 24 hour labs Labs: Urine culture reveals Proteus with resistance to Levaquin. It is sensitive to first generation cephalosporin.
--- NOTE | 2017-01-30 14:46 | XRay Report ---
History is bilateral lower abdominal pain Comparison 01/01/2014 Mild air scattered in small and large bowel without disproportionate small bowel dilatation or organomegaly seen Scoliosis and degenerative change in the spine. Vascular calcifications present. There is diffuse demineralization Impression: Nonspecific bowel gas pattern PROCEDURE INTERPRETED AT [facility] ([facility]) DEPARTMENT OF RADIOLOGY Final Report Signed by: Dr. Mago Kaur
[2017-01-30] MEDS: LATANOPROST 0.005% OPH SOLN 2.5 ML BOTTLE BOTH EYES SCH (22:49)
[2017-01-31] MEDS: SODIUM CHLORIDE 0.9% 1,000 ML IV SCH (02:36)
[2017-01-31 07:35] LABS: Basophils % 0.3 % (0.0-0.8); Eosinophils # 0.1 10*3/uL (0.0-0.87); Eosinophils % 1.4 % (0.00-10.9); Hematocrit 27.4 VOL% (35.7-47.0); Hemoglobin 9.1 GM/DL (12.0-16.0); Immature Granulocytes % 1.1 %; Immature Granulocytes Absolute 0.07 #; Lymphocytes # 1.1 10*3/uL (1.4-4.0); Lymphocytes % 16.9 % (21.3-54.2); Mean Corpuscular HGB Conc 33.2 GM/DL (32-36); Mean Corpuscular Hemoglobin 31 PG (27-34); Mean Corpuscular Volume 93.8 FL (87-102); Mean Platelet Volume 11.9 FL (9.6-12.0); Monocytes # 0.6 10*3/uL (0.11-0.8); Monocytes % 8.7 % (1.7-12.7); Neutrophils # 4.6 10*3/uL (1.4-7.4); Neutrophils % 71.6 % (38.7-73.9); Red Blood Count 2.92 MC/CUMM (3.8-5.5); Red Cell Distribution Width 15.9 % (9.3-17.3); White Blood Count 6.5 T/CUMM (4-12)
[2017-01-31 07:39] LABS: Platelet Count 82 T/CUMM (130-400)
[2017-01-31 08:00] LABS: Hypochromasia 1+; Ovalocytes Slight; Platelet Estimate Decreased
[2017-01-31 08:01] LABS: Microcytosis 1+
[2017-01-31 08:02] LABS: Burr Cells Slight
[2017-01-31 08:11] LABS: Calcium 8.2 MG/DL (8.5-10.1); Magnesium 1.9 MG/DL (1.8-2.4)
[2017-01-31] MEDS: CALCIUM (CARBONATE)/VITAMIN D 600 MG-400 UNIT TABLET PO SCH (08:56)
[2017-01-31] MEDS: TAMOXIFEN 10 MG TABLET PO SCH (08:56)
[2017-01-31] MEDS: PANTOPRAZOLE 40 MG TABLET PO SCH (08:56)
[2017-01-31] MEDS: DORZOLAMIDE/TIMOLOL OPH SOLN 10 ML BOTTLE BOTH EYES SCH (08:56)
[2017-01-31] MEDS: ASPIRIN EC 81 MG TABLET PO SCH (08:56)
[2017-01-31] MEDS: INSULIN REGULAR 100 UNIT/ML SUBCUT SCH ×2 (08:56→11:57)
--- NOTE | 2017-01-31 10:01 | Discharge Summary ---
<Tavia Lott - Last Filed: 01/31/17 09:58> Hospital Course - Hospital Course Hospital Course: 76-year-old female with history of chronic kidney disease, hypertension, diabetes, COPD, A. fib with pacemaker, history of left mastectomy , admitted by the hospitalist on 01/27/2017 with urinary tract infection, and acute on chronic renal failure due to dehydration. Patient was given IV fluids and started on antibiotics. She is now at her normal baseline and is ready to be transferred back to [facility]. She did have some low platelets and her Lovenox was stopped and this should resolve over time. She will be discharged on Keflex for 1 week. Recommend checking a platelet count in 2 weeks as well. Care coordination, chart review, completed discharge paperwork took approximately 32 minutes. I evaluated this patient and completed independent history and physical examination. I coordinated care with STEPHANE Bui PA-C. I agree with the documentation that she provides below. The chest is clear and abdomen soft. Patient medications were reconciled upon admission, and again at the time of discharge. The patient was screened for tobacco use and found to be a non-smoker. The patient's medical decsion maker is themself, and when asked, they asked to be Full code. Discharge Time was 32 minutes, including final examination, evaluation and planning, education, reconciliation of medications, writing prescriptions, coordinating care with case therapist, and preparing discharge documentation. - Time spent with patient Time with patient DS: Greater than 30 minutes Diagnosis - Discharge Diagnosis (1) Urinary tract infection Status: Resolved (2) Atrial fibrillation Status: Chronic (3) Hypertension Status: Chronic (4) Dementia Status: Chronic (5) Thrombocytopenia Status: Acute (6) Dehydration Status: Resolved Specialty Discharge - Follow Up or Referrals Follow up with: your, PCP [Other] - 2 Weeks (w a UA and CBC to check platelets) Discharge Plan - Discharge Data Disposition: Disch/Xfer to Snf Condition at Discharge: Stable Discharge Diet: advance to your usual diet Activity: resume usual activities as tolerated Contact your physician if you experience:: fever over 101 - Discharge Medications New cephALEXin [Keflex] 750 mg PO BID #14 capsule Continue RX: Dorzolamide/Timolol Oph Soln [Cosopt] 1 drop BOTH EYES BID RX: Tamoxifen Tab [Nolvadex] 10 mg PO BID RX: predniSONE TAB [PredniSONE] 20 mg PO DAILY RX: Insulin Lispro [HumaLOG] 10 units SUBCUT AC RX: Cholecalciferol (Vitamin D3) [Vitamin D3] 50,000 unit PO MO RX: Insulin Detemir [Levemir] 20 units SUBCUT BEDTIME RX: Calcium Carbonate/Vitamin D3 [Calcium 600 + Vit D Tablet] 1 each PO BID RX: Albuterol Neb [Proventil Neb] 1.25 mg RESP TX Q4H PRN PRN Reason: Shortness Of Breath/Wheezing RX: raNITIdine HCl [Ranitidine HCl] 150 mg PO BEDTIME PRN PRN Reason: Indigestion RX: Mirtazapine [Remeron] 15 mg PO BEDTIME PRN PRN Reason: Sleep RX: Docusate/Senna 50-8.6 [Senokot S] 2 tablet PO BEDTIME PRN PRN Reason: Constipation RX: Gabapentin 100 mg PO BEDTIME PRN PRN Reason: neuropathy RX: metFORMIN [Glucophage] 500 mg PO BID W/MEALS RX: amLODIPine [Norvasc] 10 mg PO DAILY RX: Carvedilol [Coreg] 12.5 mg PO BID RX: Furosemide Tab [Lasix Tab] 60 mg PO DAILY tablet RX: Latanoprost 0.005% Oph Soln [Xalatan 0.005% Oph Soln] 1 drop BOTH EYES BEDTIME RX: Sertraline [Zoloft] 100 mg PO DAILY RX: Lisinopril 20 mg PO DAILY RX: Aspirin EC Tab 81 mg PO DAILY #0 tablet RX: Polyvinyl Alcohol 1.4% Oph Gilda [Artificial Tears Oph Soln] 1 drop BOTH EYES QID PRN #1 bottle PRN Reason: Dry Eyes - Follow Up or Referral Follow Up: your, PCP [Other] - 2 Weeks (w a UA and CBC to check platelets) - Forms/Instructions Instructions: Heart Failure (DC), Urinary Tract Infection in Women (DC) Exam - Constitutional Vitals: Period Temp Pulse Resp BP Sys/Chang Pulse Ox Last 24 Hr 96.7 F-98.7 F 60-69 18-22 103-127/40-70 95-100 Exam: 76-year-old female, no acute distress, alert but not oriented Chest clear CV irregularly irregular Abdomen soft and nontender Extremities with mild pedal edema Discharge Results Procedures and tests throughout hospitalization: Pending Orders 01/27/17 19:57 Blood Culture Stat Labs on day of discharge: Labs from last 24 hours 01/31/17 01/31/17 01/31/17 07:22 07:00 07:00 WBC 6.5 RBC 2.92 L Hgb 9.1 L Hct 27.4 L MCV 93.8 MCH 31 MCHC 33.2 RDW 15.9 Plt Count 82 L MPV 11.9 Neut % (Auto) 71.6 Lymph % (Auto) 16.9 L [place] % (Auto) 8.7 Eos % (Auto) 1.4 Baso % (Auto) 0.3 Neut # (Auto) 4.6 Lymph # (Auto) 1.1 L [place] # (Auto) 0.6 Eos # (Auto) 0.1 Baso # (Auto) 0.0 Immature Gran % 1.1 Nucleated RBC % 0.0 Immature Gran # 0.07 Nucleated RBCs # 0.00 Platelet Estimate Decreased Immature Plt Fraction 0.0 Hypochromasia 1+ Microcytosis 1+ Ovalocytes Slight [place] Cells Slight Morphology Comment Sodium 143 Potassium 4.0 Chloride 116 H Carbon Dioxide 18 L Anion Gap 13.0 BUN 65 H Creatinine 3.60 H GFR Calculation 11 BUN/Creatinine Ratio 18.00 Glucose 99 POC Glucose 156 H Calculated Osmolality 303.0 Calcium 8.2 L Magnesium 1.9 01/30/17 01/30/17 01/30/17 20:36 18:03 12:08 WBC RBC Hgb Hct MCV MCH MCHC RDW Plt Count MPV Neut % (Auto) Lymph % (Auto) [place] % (Auto) Eos % (Auto) Baso % (Auto) Neut # (Auto) Lymph # (Auto) [place] # (Auto) Eos # (Auto) Baso # (Auto) Immature Gran % Nucleated RBC % Immature Gran # Nucleated RBCs # Platelet Estimate Immature Plt Fraction Hypochromasia Microcytosis Ovalocytes [place] Cells Morphology Comment Sodium Potassium Chloride Carbon Dioxide Anion Gap BUN Creatinine GFR Calculation BUN/Creatinine Ratio Glucose POC Glucose 233 H 271 H 193 H Calculated Osmolality Calcium Magnesium Preliminary micro results at discharge 01/27/17 19:57 Blood Culture - Preliminary Blood No growth at 3 days 01/27/17 19:57 Blood Culture - Preliminary Blood No growth at 3 days DS: Provider Date of admission: 01/27/17 20:44 Primary care physician: Nina Lynn MD Attending physician on admission: Mona Moreno MD Consults: 01/28/17 12:01 Consult to Physical Therapy [CONS] Routine Reason for Physical Therapy: Evaluate and Treat 01/28/17 12:02 Consult to Case Mgmt/Social Srvs [CONS] Routine Reason for Case Mgmt/Social Srvs: Discharge Planning Discharging clinician: ESTELITA Linda Expected date of discharge: 01/31/17 <Cy Hodges - Last Filed: 01/31/17 11:11> Hospital Course - Time spent with patient Time spent discussing smoking cessation with patient: 3 to 10 minutes Diagnosis - Discharge Diagnosis (1) Urinary tract infection Status: Resolved (2) Dementia Status: Chronic (3) Thrombocytopenia Status: Acute
[2017-01-31 11:38] VITALS: BP 116/48
== END 2017-01-31 14:00 | DRG 683 ==
LOC: EDBD → EDUNIT# → N.ED 19:04 → SUATTDRO 20:43 → N.EDINP 20:43 → SUATTDRO 20:44 → N.5E 21:27
PROVIDERS: ADMIT Family Medicine; ATTEND Internal Medicine

== ENCOUNTER 2017-03-10 19:58 | Inpatient (IN) ==
[2017-03-10] MEDS ORDERED: cefTRIAXone 1,000 MG in SODIUM CHLORIDE 0.9% 100 ML IV STA (21:05)
[2017-03-10] MEDS ORDERED: ASPIRIN CHEW 81 MG TABLET PO STA (21:13)
[2017-03-10] MEDS ORDERED: ONDANSETRON 4 MG/2 ML VIAL IV PRN (21:24)
[2017-03-10] MEDS ORDERED: GLUCAGON 1 MG VIAL IM PRN (21:31)
[2017-03-10] MEDS ORDERED: DEXTROSE 50% 25 GM/50 ML VIAL IV PRN (21:31)
[2017-03-10] MEDS ORDERED: cefTRIAXone 1,000 MG VIAL ONE (21:34)
[2017-03-10] MEDS ORDERED: SODIUM CHLORIDE 0.9% 100 ML IV ONE (21:35)
[2017-03-10 22:23] LABS: Lactic Acid 2.1 MMOL/L (0.4-2.0); Troponin I Only 0.052 NG/ML (0.00-0.045)
[2017-03-10] MEDS ORDERED: ASPIRIN CHEW 81 MG TABLET PO ONE (22:28)
[2017-03-10] MEDS: SODIUM CHLORIDE 0.9% 1,000 ML IV SCH (23:40)
[2017-03-11] MEDS: HEPARIN 5,000 UNIT/1 ML VIAL SUBCUT SCH ×2 (00:54→09:22)
[2017-03-11 02:28] LABS: Apearance,Urine CLOUDY (Clear); Bacteria,Urine Many /HPF (Few); Bilirubin,Urine Negative (Negative); Blood, Urine Moderate mg/dL (Negative); Glucose,Urine (UA) 150 mg/dL (Negative); Hyaline Casts,Urine 176 /LPF (0-3); Ketones,Urine Negative (Negative); Nitrite,Urine Negative (Negative); Protein,Urine 100 MG/DL; RBC,Urine 453 /HPF (0-4); Squamous Epithelial Cell,Urine Many /HPF (0-10); Urine Color Amber (Yellow); Urine Specific Gravity 1.009 (1.001-1.035); Urine Urobilinogen < 2.0 EU/DL (0.2-1.0); WBC,Urine 4231 /HPF (0-6)
[2017-03-11] MEDS ORDERED: POLYVINYL ALCOHOL 1.4% OPH SOLN 15 ML BOTTLE BOTH EYES PRN (05:16)
[2017-03-11] MEDS ORDERED: ALBUTEROL 1.25 MG/3 ML NEB RESP TX PRN (05:16)
[2017-03-11] MEDS ORDERED: FAMOTIDINE 20 MG TABLET PO PRN (05:16)
[2017-03-11] MEDS ORDERED: DOCUSATE/SENNA 50-8.6 MG TABLET PO PRN (05:16)
[2017-03-11 07:05] LABS: Basophils % 0.1 % (0.0-0.8); Hemoglobin 10.6 GM/DL (12.0-16.0); Immature Granulocytes % 0.5 %; Immature Granulocytes Absolute 0.06 #; Lymphocytes # 0.5 10*3/uL (1.4-4.0); Lymphocytes % 4.3 % (21.3-54.2); Mean Corpuscular HGB Conc 33.1 GM/DL (32-36); Mean Corpuscular Hemoglobin 33 PG (27-34); Mean Corpuscular Volume 98.5 FL (87-102); Mean Platelet Volume 11.9 FL (9.6-12.0); Monocytes # 0.3 10*3/uL (0.11-0.8); Monocytes % 2.2 % (1.7-12.7); Neutrophils # 11.6 10*3/uL (1.4-7.4); Neutrophils % 92.9 % (38.7-73.9); Platelet Count 93 T/CUMM (130-400); Red Blood Count 3.25 MC/CUMM (3.8-5.5); Red Cell Distribution Width 15.6 % (9.3-17.3); White Blood Count 12.4 T/CUMM (4-12)
[2017-03-11 07:42] LABS: Band Neutrophils 1 % (0-10); Hypochromasia 1+; Lymphocytes 1 % (20-55); Platelet Estimate Decreased; Segmented Neutrophils 98 % (50-85); Total Cells Counted 100
[2017-03-11 07:54] LABS: Alanine Aminotransferase 29 U/L (13-56); Albumin 2.7 G/DL (3.4-5.0); Alkaline Phosphatase 66 U/L (45-117); Aspartate Amino Transferase 52 U/L (0-37); Bilirubin,Total < 0.39 MG/DL (0.2-1.0); Blood Urea Nitrogen 147 MG/DL (7-18); Calcium 9.6 MG/DL (8.5-10.1); Glucose 338 MG/DL (74-106); Osmolality,Calculated 343.1 MOS/KG (273-304); Potassium 4.4 MMOL/L (3.5-5.1); Sodium 142 MMOL/L (136-145); Total Protein 5.1 G/DL (6.4-8.3)
[2017-03-11] MEDS ORDERED: TAMOXIFEN 10 MG TABLET PO SCH (09:00)
[2017-03-11] MEDS ORDERED: SERTRALINE 100 MG TABLET PO SCH (09:00)
[2017-03-11] MEDS: INSULIN LISPRO 100 UNIT/ML SUBCUT SCH ×7 (09:21→21:16)
[2017-03-11] MEDS: DORZOLAMIDE/TIMOLOL OPH SOLN 10 ML BOTTLE BOTH EYES SCH ×2 (09:22→21:16)
[2017-03-11] MEDS: SODIUM CHLORIDE 0.9% 1,000 ML IV SCH ×2 (09:23→15:13)
[2017-03-11] MEDS: CALCIUM (CARBONATE)/VITAMIN D 600 MG-400 UNIT TABLET PO SCH ×2 (09:24→20:06)
[2017-03-11] MEDS: amLODIPine 10 MG TABLET PO SCH ×2 (09:24→09:38)
[2017-03-11] MEDS: CARVEDILOL 12.5 MG TABLET PO SCH ×2 (09:24→09:37)
[2017-03-11] MEDS: predniSONE 20 MG TABLET PO SCH (09:25)
[2017-03-11] MEDS ORDERED: INSULIN REGULAR 100 UNIT/ML IV ONE (15:27)
[2017-03-11] MEDS ORDERED: INSULIN REGULAR 100 UNIT/ML ONE (15:34)
[2017-03-11] MEDS: SODIUM BICARB INJ 50 MEQ in SODIUM CHLORIDE 0.45% 1,000 ML IV SCH (17:15)
[2017-03-11] MEDS: LATANOPROST 0.005% OPH SOLN 2.5 ML BOTTLE BOTH EYES SCH (20:08)
[2017-03-11] MEDS ORDERED: INSULIN GLARGINE 100 UNIT/ML SUBCUT SCH (21:00)
[2017-03-12] MEDS: SODIUM BICARB INJ 50 MEQ in SODIUM CHLORIDE 0.45% 1,000 ML IV SCH ×2 (03:49→13:44)
[2017-03-12 07:22] LABS: Calcium 10.3 MG/DL (8.5-10.1); Potassium 3.8 MMOL/L (3.5-5.1)
[2017-03-12] MEDS: INSULIN LISPRO 100 UNIT/ML SUBCUT SCH ×7 (07:43→22:36)
[2017-03-12 08:19] LABS: Basophils % 0.1 % (0.0-0.8); Eosinophils % 0.1 % (0.00-10.9); Hematocrit 33.9 VOL% (35.7-47.0); Hemoglobin 11.4 GM/DL (12.0-16.0); Immature Granulocytes % 0.7 %; Immature Granulocytes Absolute 0.06 #; Lymphocytes # 0.3 10*3/uL (1.4-4.0); Lymphocytes % 3.7 % (21.3-54.2); Mean Corpuscular HGB Conc 33.6 GM/DL (32-36); Mean Corpuscular Hemoglobin 32 PG (27-34); Mean Corpuscular Volume 95.2 FL (87-102); Mean Platelet Volume 11.8 FL (9.6-12.0); Monocytes # 0.2 10*3/uL (0.11-0.8); Monocytes % 2.1 % (1.7-12.7); Neutrophils # 8.4 10*3/uL (1.4-7.4); Neutrophils % 93.3 % (38.7-73.9); Red Blood Count 3.56 MC/CUMM (3.8-5.5); Red Cell Distribution Width 15.5 % (9.3-17.3)
[2017-03-12 08:20] LABS: Platelet Count 89 T/CUMM (130-400)
[2017-03-12 08:39] LABS: Hypochromasia 1+; Lymphocytes 3 % (20-55); Segmented Neutrophils 96 % (50-85); Total Cells Counted 100
[2017-03-12 08:40] LABS: Microcytosis 1+; Ovalocytes Slight
[2017-03-12 08:41] LABS: Platelet Estimate Decreased
[2017-03-12] MEDS ORDERED: ERGOCALCIFEROL 50,000 UNIT CAPSULE PO SCH (09:00)
[2017-03-12] MEDS: CALCIUM (CARBONATE)/VITAMIN D 600 MG-400 UNIT TABLET PO SCH ×2 (10:39→22:08)
[2017-03-12] MEDS: TAMOXIFEN 10 MG TABLET PO SCH (10:40)
[2017-03-12] MEDS: predniSONE 20 MG TABLET PO SCH (10:40)
[2017-03-12] MEDS: SERTRALINE 50 MG TABLET PO SCH (10:40)
[2017-03-12] MEDS: DORZOLAMIDE/TIMOLOL OPH SOLN 10 ML BOTTLE BOTH EYES SCH ×2 (10:41→22:10)
[2017-03-12] MEDS: INSULIN GLARGINE 100 UNIT/ML SUBCUT SCH (22:09)
[2017-03-12] MEDS: LATANOPROST 0.005% OPH SOLN 2.5 ML BOTTLE BOTH EYES SCH (22:10)
[2017-03-12] MEDS: SODIUM CHLORIDE 23.4% CONC INJ 38.5 MEQ in STERILE WATER INJ 1,000 ML IV SCH (22:31)
[2017-03-13] MEDS: SODIUM CHLORIDE 23.4% CONC INJ 38.5 MEQ in STERILE WATER INJ 1,000 ML IV SCH ×3 (03:11→23:25)
[2017-03-13 07:53] LABS: Eosinophils % 0.2 % (0.00-10.9); Hematocrit 38.1 VOL% (35.7-47.0); Hemoglobin 12.4 GM/DL (12.0-16.0); Immature Granulocytes % 0.6 %; Lymphocytes # 0.7 10*3/uL (1.4-4.0); Mean Corpuscular HGB Conc 32.5 GM/DL (32-36); Mean Corpuscular Hemoglobin 32 PG (27-34); Mean Corpuscular Volume 98.2 FL (87-102); Mean Platelet Volume 12.8 FL (9.6-12.0); Monocytes # 0.5 10*3/uL (0.11-0.8); Monocytes % 5.1 % (1.7-12.7); Neutrophils # 7.7 10*3/uL (1.4-7.4); Neutrophils % 86.1 % (38.7-73.9); Red Blood Count 3.88 MC/CUMM (3.8-5.5); Red Cell Distribution Width 15.9 % (9.3-17.3)
[2017-03-13 07:54] LABS: Immature Granulocytes Absolute 0.05 #
[2017-03-13 07:56] LABS: Platelet Count 54 T/CUMM (130-400)
[2017-03-13 08:14] LABS: Hypochromasia 1+; Microcytosis 1+; Platelet Estimate Decreased
[2017-03-13 08:36] LABS: Calcium 10.3 MG/DL (8.5-10.1)
[2017-03-13] MEDS: DORZOLAMIDE/TIMOLOL OPH SOLN 10 ML BOTTLE BOTH EYES SCH ×2 (09:07→21:48)
[2017-03-13] MEDS: predniSONE 20 MG TABLET PO SCH (09:07)
[2017-03-13] MEDS: SERTRALINE 50 MG TABLET PO SCH (09:07)
[2017-03-13] MEDS: TAMOXIFEN 10 MG TABLET PO SCH (09:07)
[2017-03-13] MEDS: CALCIUM (CARBONATE)/VITAMIN D 600 MG-400 UNIT TABLET PO SCH ×2 (09:07→23:26)
[2017-03-13] MEDS: INSULIN LISPRO 100 UNIT/ML SUBCUT SCH ×7 (09:08→21:49)
[2017-03-13] MEDS: LATANOPROST 0.005% OPH SOLN 2.5 ML BOTTLE BOTH EYES SCH (21:48)
[2017-03-13] MEDS: INSULIN GLARGINE 100 UNIT/ML SUBCUT SCH (23:26)
[2017-03-14 06:49] LABS: Basophils % 0.1 % (0.0-0.8); Eosinophils % 0.4 % (0.00-10.9); Hematocrit 35.2 VOL% (35.7-47.0); Hemoglobin 11.5 GM/DL (12.0-16.0); Immature Granulocytes % 0.9 %; Immature Granulocytes Absolute 0.08 #; Lymphocytes # 1.2 10*3/uL (1.4-4.0); Lymphocytes % 12.9 % (21.3-54.2); Mean Corpuscular HGB Conc 32.7 GM/DL (32-36); Mean Corpuscular Hemoglobin 32 PG (27-34); Mean Corpuscular Volume 98.9 FL (87-102); Mean Platelet Volume 11.9 FL (9.6-12.0); Monocytes # 0.4 10*3/uL (0.11-0.8); Monocytes % 4.8 % (1.7-12.7); Neutrophils # 7.5 10*3/uL (1.4-7.4); Neutrophils % 80.9 % (38.7-73.9); Red Blood Count 3.56 MC/CUMM (3.8-5.5); Red Cell Distribution Width 15.9 % (9.3-17.3); White Blood Count 9.3 T/CUMM (4-12)
[2017-03-14 06:52] LABS: Platelet Count 50 T/CUMM (130-400)
[2017-03-14 07:13] LABS: Giant Platelets Few; Hypochromasia 1+; Microcytosis Slight; Ovalocytes Slight; Platelet Estimate Decreased
[2017-03-14 07:25] LABS: Calcium 9.5 MG/DL (8.5-10.1); Osmolality,Calculated 302.6 MOS/KG (273-304); Potassium 3.4 MMOL/L (3.5-5.1)
[2017-03-14] MEDS: INSULIN LISPRO 100 UNIT/ML SUBCUT SCH ×4 (08:54→12:52)
[2017-03-14] MEDS: CALCIUM (CARBONATE)/VITAMIN D 600 MG-400 UNIT TABLET PO SCH (09:21)
[2017-03-14] MEDS: TAMOXIFEN 10 MG TABLET PO SCH (09:21)
[2017-03-14] MEDS: predniSONE 20 MG TABLET PO SCH (09:21)
[2017-03-14] MEDS: SERTRALINE 50 MG TABLET PO SCH (09:21)
[2017-03-14] MEDS: DORZOLAMIDE/TIMOLOL OPH SOLN 10 ML BOTTLE BOTH EYES SCH (09:22)
[2017-03-14] MEDS: SODIUM CHLORIDE 23.4% CONC INJ 38.5 MEQ in STERILE WATER INJ 1,000 ML IV SCH ×2 (09:55→11:18)
[2017-03-14 11:32] VITALS: BP 119/86
== END 2017-03-14 14:30 | DRG 872 ==
LOC: EDUNIT# → EDBD → N.ED 19:58 → N.EDINP 21:23 → SUATTDRO 21:23 → N.5E 23:06
PROVIDERS: ADMIT Internal Medicine; ATTEND Internal Medicine

== ENCOUNTER 2017-03-20 19:26 | Inpatient (IN) ==
[2017-03-20] MEDS ORDERED: GLUCAGON 1 MG VIAL IM PRN (22:06)
[2017-03-20] MEDS ORDERED: DEXTROSE 50% 25 GM/50 ML VIAL IV PRN (22:06)
[2017-03-20 23:23] LABS: Basophils % 0.1 % (0.0-0.8); Eosinophils % 0.4 % (0.00-10.9); Hematocrit 34.4 VOL% (35.7-47.0); Hemoglobin 11.1 GM/DL (12.0-16.0); Immature Granulocytes % 0.6 %; Immature Granulocytes Absolute 0.06 #; Lymphocytes # 0.9 10*3/uL (1.4-4.0); Lymphocytes % 8.9 % (21.3-54.2); Mean Corpuscular HGB Conc 32.3 GM/DL (32-36); Mean Corpuscular Hemoglobin 32 PG (27-34); Mean Corpuscular Volume 99.4 FL (87-102); Mean Platelet Volume 13.1 FL (9.6-12.0); Monocytes # 0.6 10*3/uL (0.11-0.8); Monocytes % 5.6 % (1.7-12.7); NRBC # 0.02 10*3/uL; Neutrophils # 8.3 10*3/uL (1.4-7.4); Neutrophils % 84.4 % (38.7-73.9); Platelet Count 59 T/CUMM (130-400); Red Blood Count 3.46 MC/CUMM (3.8-5.5); Red Cell Distribution Width 15.7 % (9.3-17.3); White Blood Count 9.8 T/CUMM (4-12)
[2017-03-20 23:38] LABS: Albumin 3.1 G/DL (3.4-5.0); Bilirubin,Total 0.5 MG/DL (0.2-1.0); Calcium 10.5 MG/DL (8.5-10.1); Osmolality,Calculated 313.7 MOS/KG (273-304); Potassium 3.7 MMOL/L (3.5-5.1); Total Protein 5.7 G/DL (6.4-8.3)
[2017-03-21] MEDS: ALBUTEROL/IPRATROPIUM 3 ML NEB RESP TX SCH ×4 (00:12→19:50)
[2017-03-21] MEDS: POTASSIUM CHLORIDE INJ 10 MEQ in SODIUM CHLORIDE 0.45% 1,000 ML IV SCH (01:07)
[2017-03-21 01:21] LABS: Apearance,Urine CLOUDY (Clear); Bacteria,Urine Few /HPF (Few); Bilirubin,Urine Negative (Negative); Blood, Urine Small mg/dL (Negative); Glucose,Urine (UA) 50 mg/dL (Negative); Ketones,Urine Negative (Negative); Nitrite,Urine Negative (Negative); Protein,Urine 30 MG/DL; RBC,Urine 5 /HPF (0-4); Renal Epithelial Cells,Urine Occasional /HPF (<1); Squamous Epithelial Cell,Urine Many /HPF (0-10); Urine Color Yellow (Yellow); Urine Urobilinogen < 2.0 EU/DL (0.2-1.0); WBC,Urine 17 /HPF (0-6)
[2017-03-21 08:45] LABS: Calcium 10.4 MG/DL (8.5-10.1); Magnesium 1.9 MG/DL (1.8-2.4); Potassium 3.4 MMOL/L (3.5-5.1)
[2017-03-21] MEDS: INSULIN REGULAR 100 UNIT/ML SUBCUT SCH ×4 (09:03→22:19)
[2017-03-21] MEDS: cefTRIAXone 1,000 MG in SYRINGE 1 EACH IV SCH (14:31)
[2017-03-21] MEDS: DORZOLAMIDE/TIMOLOL OPH SOLN 10 ML BOTTLE BOTH EYES SCH (22:19)
[2017-03-21] MEDS: INSULIN GLARGINE 100 UNIT/ML SUBCUT SCH (22:19)
[2017-03-21] MEDS: TAMOXIFEN 10 MG TABLET PO SCH (22:20)
[2017-03-22] MEDS: ALBUTEROL/IPRATROPIUM 3 ML NEB RESP TX SCH ×4 (01:15→19:45)
[2017-03-22] MEDS: POTASSIUM CHLORIDE INJ 10 MEQ in SODIUM CHLORIDE 0.45% 1,000 ML IV SCH (03:48)
[2017-03-22 05:00] LABS: Calcium 9.6 MG/DL (8.5-10.1); Potassium 3.2 MMOL/L (3.5-5.1)
[2017-03-22 07:02] LABS: Basophils % 0.1 % (0.0-0.8); Eosinophils # 0.2 10*3/uL (0.0-0.87); Eosinophils % 2.1 % (0.00-10.9); Hematocrit 30.3 VOL% (35.7-47.0); Immature Granulocytes % 0.5 %; Immature Granulocytes Absolute 0.04 #; Lymphocytes % 12.1 % (21.3-54.2); Mean Corpuscular Hemoglobin 32 PG (27-34); Mean Corpuscular Volume 98.1 FL (87-102); Mean Platelet Volume 11.8 FL (9.6-12.0); Monocytes # 0.3 10*3/uL (0.11-0.8); NRBC # 0.03 10*3/uL; Neutrophils # 6.6 10*3/uL (1.4-7.4); Neutrophils % 81.2 % (38.7-73.9); Red Blood Count 3.09 MC/CUMM (3.8-5.5); Red Cell Distribution Width 15.9 % (9.3-17.3); White Blood Count 8.1 T/CUMM (4-12)
[2017-03-22 07:04] LABS: Platelet Count 79 T/CUMM (130-400)
[2017-03-22] MEDS: INSULIN REGULAR 100 UNIT/ML SUBCUT SCH ×4 (07:51→22:17)
[2017-03-22 08:08] LABS: Giant Platelets Few; Hypochromasia 1+; Platelet Estimate Decreased
[2017-03-22 08:09] LABS: Microcytosis Slight
[2017-03-22] MEDS: TAMOXIFEN 10 MG TABLET PO SCH ×2 (10:06→21:17)
[2017-03-22] MEDS: DORZOLAMIDE/TIMOLOL OPH SOLN 10 ML BOTTLE BOTH EYES SCH ×2 (10:06→21:16)
[2017-03-22] MEDS: cefTRIAXone 1,000 MG in SYRINGE 1 EACH IV SCH (12:32)
[2017-03-22] MEDS ORDERED: POTASSIUM CHLORIDE RIDER 10 MEQ in PREMIX 1 EACH IV PRN (13:59)
[2017-03-22] MEDS: POTASSIUM CHLORIDE 20 MEQ TABLET PO PRN ×4 (14:58→21:17)
[2017-03-22] MEDS: DEXTROSE 5% NACL 0.45% 1,000 ML IV SCH (14:58)
[2017-03-22] MEDS: DEXTROSE 5% 1,000 ML IV SCH (15:01)
[2017-03-22] MEDS: INSULIN GLARGINE 100 UNIT/ML SUBCUT SCH (21:16)
[2017-03-23] MEDS: ALBUTEROL/IPRATROPIUM 3 ML NEB RESP TX SCH ×5 (00:43→23:58)
[2017-03-23] MEDS: DEXTROSE 5% NACL 0.45% 1,000 ML IV SCH ×2 (03:01→16:35)
[2017-03-23] MEDS: DEXTROSE 5% 1,000 ML IV SCH ×2 (04:23→17:17)
[2017-03-23 04:45] LABS: Eosinophils # 0.1 10*3/uL (0.0-0.87); Hematocrit 27.8 VOL% (35.7-47.0); Immature Granulocytes % 0.4 %; Immature Granulocytes Absolute 0.02 #; Lymphocytes # 0.6 10*3/uL (1.4-4.0); Lymphocytes % 10.7 % (21.3-54.2); Mean Corpuscular HGB Conc 32.4 GM/DL (32-36); Mean Corpuscular Hemoglobin 32 PG (27-34); Mean Corpuscular Volume 98.6 FL (87-102); Monocytes # 0.2 10*3/uL (0.11-0.8); Monocytes % 3.8 % (1.7-12.7); NRBC # 0.02 10*3/uL; Neutrophils # 4.7 10*3/uL (1.4-7.4); Neutrophils % 83.1 % (38.7-73.9); Red Blood Count 2.82 MC/CUMM (3.8-5.5); Red Cell Distribution Width 15.4 % (9.3-17.3); White Blood Count 5.6 T/CUMM (4-12)
[2017-03-23 04:49] LABS: Platelet Count 59 T/CUMM (130-400)
[2017-03-23 05:05] LABS: Calcium 8.8 MG/DL (8.5-10.1); Magnesium 1.8 MG/DL (1.8-2.4); Osmolality,Calculated 307.8 MOS/KG (273-304); Potassium 4.3 MMOL/L (3.5-5.1)
[2017-03-23 05:22] LABS: Giant Platelets Few; Hypochromasia 1+; Microcytosis Slight; Ovalocytes Slight; Platelet Estimate Decreased
[2017-03-23] MEDS: INSULIN REGULAR 100 UNIT/ML SUBCUT SCH ×4 (09:21→20:51)
[2017-03-23] MEDS: TAMOXIFEN 10 MG TABLET PO SCH ×2 (09:23→20:50)
[2017-03-23] MEDS: DORZOLAMIDE/TIMOLOL OPH SOLN 10 ML BOTTLE BOTH EYES SCH ×2 (09:25→20:51)
[2017-03-23] MEDS: cefTRIAXone 1,000 MG in SYRINGE 1 EACH IV SCH (12:58)
[2017-03-23] MEDS: LINEZOLID INJ 600 MG in PREMIX 1 EACH IV SCH (17:25)
[2017-03-23] MEDS: INSULIN GLARGINE 100 UNIT/ML SUBCUT SCH (20:51)
[2017-03-24 04:19] LABS: Eosinophils # 0.2 10*3/uL (0.0-0.87); Eosinophils % 2.4 % (0.00-10.9); Hemoglobin 9.1 GM/DL (12.0-16.0); Immature Granulocytes % 0.5 %; Immature Granulocytes Absolute 0.03 #; Lymphocytes # 1.1 10*3/uL (1.4-4.0); Lymphocytes % 17.1 % (21.3-54.2); Mean Corpuscular HGB Conc 32.5 GM/DL (32-36); Mean Corpuscular Hemoglobin 32 PG (27-34); Mean Corpuscular Volume 99.6 FL (87-102); Mean Platelet Volume 12.5 FL (9.6-12.0); Monocytes # 0.2 10*3/uL (0.11-0.8); Monocytes % 3.4 % (1.7-12.7); NRBC # 0.03 10*3/uL; Neutrophils # 4.8 10*3/uL (1.4-7.4); Neutrophils % 76.6 % (38.7-73.9); Platelet Count 55 T/CUMM (130-400); Red Blood Count 2.81 MC/CUMM (3.8-5.5); Red Cell Distribution Width 15.7 % (9.3-17.3); White Blood Count 6.2 T/CUMM (4-12)
[2017-03-24] MEDS: LINEZOLID INJ 600 MG in PREMIX 1 EACH IV SCH ×2 (04:45→17:00)
[2017-03-24 04:46] LABS: Calcium 8.9 MG/DL (8.5-10.1); Magnesium 1.7 MG/DL (1.8-2.4)
[2017-03-24 05:10] LABS: Eosinophils 2 % (0-10); Lymphocytes 15 % (20-55); Segmented Neutrophils 81 % (50-85); Total Cells Counted 100
[2017-03-24 05:11] LABS: Hypochromasia 1+; Microcytosis Slight; Platelet Estimate Decreased
[2017-03-24] MEDS ORDERED: SODIUM CHLORIDE 0.9% 1,000 ML IV ONE (05:12)
[2017-03-24] MEDS: DEXTROSE 5% 1,000 ML IV SCH ×2 (05:48→20:47)
[2017-03-24] MEDS: DEXTROSE 5% NACL 0.45% 1,000 ML IV SCH (05:48)
[2017-03-24] MEDS: ALBUTEROL/IPRATROPIUM 3 ML NEB RESP TX SCH ×3 (06:53→19:30)
[2017-03-24] MEDS ORDERED: MAGNESIUM HYDROXIDE SUSP 30 ML UDCUP PO ONE (10:20)
[2017-03-24 12:48] LABS: INR 1.2; PT Patient Result 12.3 SECS; Partial Thromboplastin Time 29.2 SECS (0-40)
[2017-03-24] MEDS: TAMOXIFEN 10 MG TABLET PO SCH ×2 (13:42→20:47)
[2017-03-24] MEDS: DORZOLAMIDE/TIMOLOL OPH SOLN 10 ML BOTTLE BOTH EYES SCH ×2 (13:43→20:47)
[2017-03-24] MEDS: INSULIN REGULAR 100 UNIT/ML SUBCUT SCH ×4 (13:43→20:56)
[2017-03-24] MEDS: INSULIN GLARGINE 100 UNIT/ML SUBCUT SCH (20:47)
[2017-03-25] MEDS: ALBUTEROL/IPRATROPIUM 3 ML NEB RESP TX SCH ×4 (00:36→20:16)
[2017-03-25] MEDS: DEXTROSE 5% NACL 0.45% 1,000 ML IV SCH ×3 (03:30→23:29)
[2017-03-25] MEDS: LINEZOLID INJ 600 MG in PREMIX 1 EACH IV SCH (05:30)
[2017-03-25] MEDS: INSULIN REGULAR 100 UNIT/ML SUBCUT SCH ×4 (09:45→20:43)
[2017-03-25] MEDS: TAMOXIFEN 10 MG TABLET PO SCH ×2 (09:46→20:53)
[2017-03-25] MEDS: DORZOLAMIDE/TIMOLOL OPH SOLN 10 ML BOTTLE BOTH EYES SCH ×2 (09:47→20:58)
[2017-03-25] MEDS: DEXTROSE 5% 1,000 ML IV SCH ×2 (09:47→23:29)
[2017-03-25] MEDS ORDERED: SODIUM CHLORIDE 0.9% 1,000 ML IV PRN (10:19)
[2017-03-25] MEDS ORDERED: TIGECYCLINE 100 MG in SODIUM CHLORIDE 0.9% 100 ML IV ONE (11:30)
[2017-03-25] MEDS: INSULIN GLARGINE 100 UNIT/ML SUBCUT SCH (20:43)
[2017-03-25] MEDS: TIGECYCLINE 50 MG in SODIUM CHLORIDE 0.9% 100 ML IV SCH (23:30)
[2017-03-26 00:14] LABS: Basophils % 0.2 % (0.0-0.8); Eosinophils # 0.1 10*3/uL (0.0-0.87); Eosinophils % 1.8 % (0.00-10.9); Immature Granulocytes % 0.5 %; Immature Granulocytes Absolute 0.03 #; Lymphocytes # 0.9 10*3/uL (1.4-4.0); Mean Corpuscular HGB Conc 32.1 GM/DL (32-36); Mean Corpuscular Hemoglobin 33 PG (27-34); Mean Corpuscular Volume 101.8 FL (87-102); Mean Platelet Volume 12.3 FL (9.6-12.0); Monocytes # 0.3 10*3/uL (0.11-0.8); Neutrophils # 4.1 10*3/uL (1.4-7.4); Neutrophils % 74.5 % (38.7-73.9); Platelet Count 40 T/CUMM (130-400); Red Blood Count 2.75 MC/CUMM (3.8-5.5); Red Cell Distribution Width 15.4 % (9.3-17.3); White Blood Count 5.5 T/CUMM (4-12)
[2017-03-26 00:38] LABS: Band Neutrophils 1 % (0-10); Lymphocytes 14 % (20-55); Myelocytes 1 %; Segmented Neutrophils 84 % (50-85); Total Cells Counted 100
[2017-03-26 00:41] LABS: Anisocytosis 1+; Platelet Estimate Decreased
[2017-03-26] MEDS: ALBUTEROL/IPRATROPIUM 3 ML NEB RESP TX SCH ×4 (01:30→19:20)
[2017-03-26 03:57] LABS: Basophils % 0.2 % (0.0-0.8); Eosinophils # 0.1 10*3/uL (0.0-0.87); Eosinophils % 1.7 % (0.00-10.9); Hematocrit 26.7 VOL% (35.7-47.0); Hemoglobin 8.8 GM/DL (12.0-16.0); Immature Granulocytes % 0.9 %; Immature Granulocytes Absolute 0.05 #; Lymphocytes # 0.8 10*3/uL (1.4-4.0); Lymphocytes % 15.7 % (21.3-54.2); Mean Corpuscular Hemoglobin 33 PG (27-34); Mean Corpuscular Volume 98.5 FL (87-102); Mean Platelet Volume 12.7 FL (9.6-12.0); Monocytes # 0.3 10*3/uL (0.11-0.8); Monocytes % 5.3 % (1.7-12.7); Neutrophils % 76.2 % (38.7-73.9); Platelet Count 43 T/CUMM (130-400); Red Blood Count 2.71 MC/CUMM (3.8-5.5); Red Cell Distribution Width 15.5 % (9.3-17.3); White Blood Count 5.3 T/CUMM (4-12)
[2017-03-26 04:51] LABS: Albumin 2.4 G/DL (3.4-5.0); Bilirubin,Direct 0.18 MG/DL (0.0-0.20); Bilirubin,Total 1.2 MG/DL (0.2-1.0); Phosphorous 1.7 MG/DL (2.5-4.9); Potassium 3.9 MMOL/L (3.5-5.1); Total Protein 4.7 G/DL (6.4-8.3)
[2017-03-26 05:16] LABS: Band Neutrophils 3 % (0-10); Eosinophils 1 % (0-10); Lymphocytes 15 % (20-55); Myelocytes 2 %; Segmented Neutrophils 79 % (50-85); Total Cells Counted 100
[2017-03-26 05:17] LABS: Anisocytosis 1+; Hypochromasia 1+; Platelet Estimate Decreased
[2017-03-26] MEDS: INSULIN REGULAR 100 UNIT/ML SUBCUT SCH ×4 (07:48→22:23)
[2017-03-26] MEDS: TAMOXIFEN 10 MG TABLET PO SCH ×2 (10:03→22:14)
[2017-03-26] MEDS: DORZOLAMIDE/TIMOLOL OPH SOLN 10 ML BOTTLE BOTH EYES SCH ×2 (10:04→22:14)
[2017-03-26] MEDS: TIGECYCLINE 50 MG in SODIUM CHLORIDE 0.9% 100 ML IV SCH (12:05)
[2017-03-26] MEDS ORDERED: SODIUM PHOSPHATE INJ 15 MMOL in SODIUM CHLORIDE 0.9% 250 ML IV ONE (15:30)
[2017-03-26] MEDS: DEXTROSE 5% NACL 0.45% 1,000 ML IV SCH (16:22)
[2017-03-26] MEDS: INSULIN GLARGINE 100 UNIT/ML SUBCUT SCH (22:17)
[2017-03-26] MEDS: DEXTROSE 5% 1,000 ML IV SCH (22:19)
[2017-03-26] MEDS: LACTULOSE 160 GM/240 ML BOTTLE RECTAL SCH (23:09)
[2017-03-27] MEDS: TIGECYCLINE 50 MG in SODIUM CHLORIDE 0.9% 100 ML IV SCH (00:45)
[2017-03-27] MEDS: ALBUTEROL/IPRATROPIUM 3 ML NEB RESP TX SCH ×4 (01:44→20:12)
[2017-03-27] MEDS: DEXTROSE 5% 1,000 ML IV SCH ×2 (04:54→20:33)
[2017-03-27] MEDS: DEXTROSE 5% NACL 0.45% 1,000 ML IV SCH ×2 (06:26→21:52)
[2017-03-27 07:42] LABS: Eosinophils # 0.1 10*3/uL (0.0-0.87); Eosinophils % 1.8 % (0.00-10.9); Hematocrit 27.1 VOL% (35.7-47.0); Hemoglobin 8.9 GM/DL (12.0-16.0); Immature Granulocytes % 0.7 %; Immature Granulocytes Absolute 0.03 #; Lymphocytes # 0.9 10*3/uL (1.4-4.0); Lymphocytes % 19.7 % (21.3-54.2); Mean Corpuscular HGB Conc 32.8 GM/DL (32-36); Mean Corpuscular Hemoglobin 32 PG (27-34); Mean Corpuscular Volume 98.2 FL (87-102); Mean Platelet Volume 12.7 FL (9.6-12.0); Monocytes # 0.2 10*3/uL (0.11-0.8); Monocytes % 5.2 % (1.7-12.7); Neutrophils # 3.2 10*3/uL (1.4-7.4); Neutrophils % 72.6 % (38.7-73.9); Platelet Count 50 T/CUMM (130-400); Red Blood Count 2.76 MC/CUMM (3.8-5.5); Red Cell Distribution Width 15.8 % (9.3-17.3); White Blood Count 4.4 T/CUMM (4-12)
[2017-03-27 08:05] LABS: Platelet Estimate Decreased
[2017-03-27 08:06] LABS: Microcytosis Slight
[2017-03-27 08:19] LABS: Albumin 2.2 G/DL (3.4-5.0); Bilirubin,Direct 0.16 MG/DL (0.0-0.20); Bilirubin,Indirect 0.6 MG/DL (0.0-1.0); Bilirubin,Total 0.8 MG/DL (0.2-1.0); Calcium 8.5 MG/DL (8.5-10.1); Phosphorous 2.5 MG/DL (2.5-4.9); Potassium 3.5 MMOL/L (3.5-5.1); Total Protein 4.4 G/DL (6.4-8.3)
[2017-03-27] MEDS: INSULIN REGULAR 100 UNIT/ML SUBCUT SCH ×4 (09:40→21:57)
[2017-03-27] MEDS: TAMOXIFEN 10 MG TABLET PO SCH ×2 (10:18→21:53)
[2017-03-27] MEDS: DORZOLAMIDE/TIMOLOL OPH SOLN 10 ML BOTTLE BOTH EYES SCH ×2 (10:19→22:33)
[2017-03-27] MEDS: LACTULOSE 160 GM/240 ML BOTTLE RECTAL SCH ×2 (11:52→22:18)
[2017-03-27 16:01] LABS: Apearance,Urine CLEAR (Clear); Bacteria,Urine Occasional /HPF (Few); Bilirubin,Urine Negative (Negative); Blood, Urine Negative (Negative); Glucose,Urine (UA) 150 mg/dL (Negative); Ketones,Urine Negative (Negative); Nitrite,Urine Negative (Negative); Protein,Urine 30 MG/DL; RBC,Urine <1 /HPF (0-4); Squamous Epithelial Cell,Urine Occasional /HPF (0-10); Urine Color Yellow (Yellow); Urine Specific Gravity 1.009 (1.001-1.035); Urine Urobilinogen < 2.0 EU/DL (0.2-1.0); WBC,Urine 2 /HPF (0-6)
[2017-03-27 16:14] LABS: HIT Interpretation Negative (Negative)
[2017-03-27] MEDS: INSULIN GLARGINE 100 UNIT/ML SUBCUT SCH (21:57)
[2017-03-28] MEDS: ALBUTEROL/IPRATROPIUM 3 ML NEB RESP TX SCH ×4 (01:35→20:00)
[2017-03-28 05:20] LABS: Basophils % 0.2 % (0.0-0.8); Eosinophils # 0.1 10*3/uL (0.0-0.87); Eosinophils % 2.2 % (0.00-10.9); Hematocrit 27.9 VOL% (35.7-47.0); Hemoglobin 9.4 GM/DL (12.0-16.0); Immature Granulocytes % 0.5 %; Immature Granulocytes Absolute 0.02 #; Lymphocytes % 23.6 % (21.3-54.2); Mean Corpuscular HGB Conc 33.7 GM/DL (32-36); Mean Corpuscular Hemoglobin 33 PG (27-34); Mean Corpuscular Volume 97.2 FL (87-102); Mean Platelet Volume 12.3 FL (9.6-12.0); Monocytes # 0.2 10*3/uL (0.11-0.8); Monocytes % 5.7 % (1.7-12.7); Neutrophils # 2.8 10*3/uL (1.4-7.4); Neutrophils % 67.8 % (38.7-73.9); Platelet Count 49 T/CUMM (130-400); Red Blood Count 2.87 MC/CUMM (3.8-5.5); Red Cell Distribution Width 15.4 % (9.3-17.3); White Blood Count 4.1 T/CUMM (4-12)
[2017-03-28 05:56] LABS: Eosinophils 3 % (0-10); Hypochromasia 1+; Lymphocytes 19 % (20-55); Microcytosis Slight; Segmented Neutrophils 71 % (50-85); Total Cells Counted 100
[2017-03-28 05:57] LABS: Platelet Estimate Decreased
[2017-03-28 06:00] LABS: Calcium 8.7 MG/DL (8.5-10.1); Magnesium 1.8 MG/DL (1.8-2.4); Osmolality,Calculated 287.1 MOS/KG (273-304); Potassium 3.5 MMOL/L (3.5-5.1)
[2017-03-28] MEDS: INSULIN REGULAR 100 UNIT/ML SUBCUT SCH ×4 (08:56→22:03)
[2017-03-28] MEDS: DEXTROSE 5% 1,000 ML IV SCH (08:56)
[2017-03-28] MEDS: TAMOXIFEN 10 MG TABLET PO SCH ×2 (09:02→22:03)
[2017-03-28] MEDS: DEXTROSE 5% NACL 0.45% 1,000 ML IV SCH ×2 (09:03→18:56)
[2017-03-28] MEDS: LACTULOSE 160 GM/240 ML BOTTLE RECTAL SCH ×2 (09:04→22:02)
[2017-03-28] MEDS: DORZOLAMIDE/TIMOLOL OPH SOLN 10 ML BOTTLE BOTH EYES SCH ×2 (09:04→22:03)
[2017-03-28] MEDS: INSULIN GLARGINE 100 UNIT/ML SUBCUT SCH (22:03)
[2017-03-29] MEDS: ALBUTEROL/IPRATROPIUM 3 ML NEB RESP TX SCH ×2 (00:31→06:50)
[2017-03-29 08:34] VITALS: BP 133/76
[2017-03-29] MEDS: TAMOXIFEN 10 MG TABLET PO SCH (09:25)
[2017-03-29] MEDS: DORZOLAMIDE/TIMOLOL OPH SOLN 10 ML BOTTLE BOTH EYES SCH (09:26)
[2017-03-29] MEDS: INSULIN REGULAR 100 UNIT/ML SUBCUT SCH (09:35)
[2017-03-29] MEDS: LACTULOSE 160 GM/240 ML BOTTLE RECTAL SCH (10:37)
[2017-03-29] MEDS: DEXTROSE 5% NACL 0.45% 1,000 ML IV SCH (10:37)
== END 2017-03-29 13:30 | DRG 683 ==
LOC: SUATTDRO 21:02 → N.TELEN 21:02
PROVIDERS: ADMIT Internal Medicine; ATTEND Internal Medicine

== ENCOUNTER 2017-04-22 08:15 | Inpatient (IN) ==
[2017-04-22 10:50] LABS: Basophils % 0.2 % (0.0-0.8); Eosinophils # 0.1 10*3/uL (0.0-0.87); Hematocrit 35.9 VOL% (35.7-47.0); Immature Granulocytes % 0.5 %; Immature Granulocytes Absolute 0.03 #; Lymphocytes # 0.6 10*3/uL (1.4-4.0); Lymphocytes % 10.7 % (21.3-54.2); Mean Corpuscular HGB Conc 30.6 GM/DL (32-36); Mean Corpuscular Hemoglobin 33 PG (27-34); Mean Corpuscular Volume 108.5 FL (87-102); Mean Platelet Volume 13.6 FL (9.6-12.0); Monocytes # 0.3 10*3/uL (0.11-0.8); Monocytes % 4.7 % (1.7-12.7); Neutrophils # 4.8 10*3/uL (1.4-7.4); Neutrophils % 82.9 % (38.7-73.9); Platelet Count 62 T/CUMM (130-400); Red Blood Count 3.31 MC/CUMM (3.8-5.5); Red Cell Distribution Width 16.7 % (9.3-17.3); White Blood Count 5.8 T/CUMM (4-12)
[2017-04-22 11:18] LABS: Lactic Acid 1.8 MMOL/L (0.4-2.0)
[2017-04-22 11:26] LABS: Free T4 (Free Thyroxine) 0.97 NG/DL (0.76-1.46); Thyroid Stimulating Hormone 1.8 uIU/ml (0.358-3.74)
[2017-04-22] MEDS ORDERED: ACETAMINOPHEN 325 MG TABLET PO PRN (11:53)
[2017-04-22] MEDS ORDERED: DOCUSATE SODIUM 100 MG CAPSULE PO PRN (11:53)
[2017-04-22] MEDS ORDERED: MORPHINE 2 MG/1 ML SYRINGE IV PRN (11:53)
[2017-04-22] MEDS ORDERED: LACTULOSE 20 GM/30 ML UDCUP PO PRN (11:53)
[2017-04-22] MEDS ORDERED: MIRTAZAPINE 15 MG TABLET PO PRN (11:57)
[2017-04-22] MEDS ORDERED: GABAPENTIN 100 MG CAPSULE PO PRN (11:57)
[2017-04-22 12:25] LABS: Albumin 2.7 G/DL (3.4-5.0); Bilirubin,Total 0.6 MG/DL (0.2-1.0); Magnesium 2.5 MG/DL (1.8-2.4); Osmolality,Calculated 343.7 MOS/KG (273-304); Phosphorous 2.9 MG/DL (2.5-4.9); Potassium 2.9 MMOL/L (3.5-5.1); Total Protein 5.6 G/DL (6.4-8.3)
[2017-04-22 13:30] LABS: Hypochromasia 2+; Microcytosis Slight
[2017-04-22] MEDS: amLODIPine 10 MG TABLET PO SCH (14:12)
[2017-04-22] MEDS: INSULIN LISPRO 100 UNIT/ML SUBCUT SCH ×2 (14:13→16:45)
[2017-04-22] MEDS: SODIUM CHLORIDE 0.45% 1,000 ML IV SCH ×2 (14:13→21:47)
[2017-04-22] MEDS: predniSONE 20 MG TABLET PO SCH (14:14)
[2017-04-22] MEDS: SERTRALINE 100 MG TABLET PO SCH (14:14)
[2017-04-22] MEDS: PANTOPRAZOLE 40 MG TABLET PO SCH (14:14)
[2017-04-22] MEDS: INSULIN REGULAR 100 UNIT/ML SUBCUT SCH ×2 (16:44→22:02)
[2017-04-22 17:42] LABS: Apearance,Urine CLOUDY (Clear); Bacteria,Urine Few /HPF (Few); Bilirubin,Urine Negative (Negative); Blood, Urine Large mg/dL (Negative); Glucose,Urine (UA) 50 mg/dL (Negative); Hyaline Casts,Urine 4 /LPF (0-3); Ketones,Urine Negative (Negative); Mucus,Urine Occasional /LPF (Occasional); Nitrite,Urine Negative (Negative); Protein,Urine 100 MG/DL; RBC,Urine 75 /HPF (0-4); Squamous Epithelial Cell,Urine Occasional /HPF (0-10); Urine Color Yellow (Yellow); Urine Specific Gravity 1.011 (1.001-1.035); Urine Urobilinogen < 2.0 EU/DL (0.2-1.0); WBC,Urine 105 /HPF (0-6)
[2017-04-22] MEDS: DORZOLAMIDE/TIMOLOL OPH SOLN 10 ML BOTTLE BOTH EYES SCH (21:54)
[2017-04-22] MEDS: INSULIN GLARGINE 100 UNIT/ML SUBCUT SCH (22:01)
[2017-04-22] MEDS: LATANOPROST 0.005% OPH SOLN 2.5 ML BOTTLE BOTH EYES SCH (22:02)
[2017-04-23 05:39] LABS: Basophils % 0.3 % (0.0-0.8); Eosinophils # 0.1 10*3/uL (0.0-0.87); Eosinophils % 1.5 % (0.00-10.9); Hemoglobin 11.1 GM/DL (12.0-16.0); Immature Granulocytes % 0.5 %; Immature Granulocytes Absolute 0.04 #; Lymphocytes # 0.8 10*3/uL (1.4-4.0); Lymphocytes % 10.3 % (21.3-54.2); Mean Corpuscular HGB Conc 30.8 GM/DL (32-36); Mean Corpuscular Hemoglobin 33 PG (27-34); Mean Corpuscular Volume 105.9 FL (87-102); Monocytes # 0.3 10*3/uL (0.11-0.8); Monocytes % 4.4 % (1.7-12.7); NRBC # 0.04 10*3/uL; Neutrophils # 6.4 10*3/uL (1.4-7.4); Platelet Count 56 T/CUMM (130-400); White Blood Count 7.8 T/CUMM (4-12)
[2017-04-23 05:58] LABS: Giant Platelets Few; Hypochromasia 1+; Microcytosis Slight; Ovalocytes Slight; Platelet Estimate Decreased
[2017-04-23 06:05] LABS: Calcium 9.3 MG/DL (8.5-10.1); Potassium 3.2 MMOL/L (3.5-5.1)
[2017-04-23] MEDS: SODIUM CHLORIDE 0.45% 1,000 ML IV SCH ×2 (06:07→08:46)
[2017-04-23] MEDS: INSULIN LISPRO 100 UNIT/ML SUBCUT SCH ×3 (08:00→16:25)
[2017-04-23] MEDS: INSULIN REGULAR 100 UNIT/ML SUBCUT SCH ×3 (08:10→16:24)
[2017-04-23] MEDS: amLODIPine 10 MG TABLET PO SCH (09:00)
[2017-04-23] MEDS: predniSONE 20 MG TABLET PO SCH (09:00)
[2017-04-23] MEDS: PANTOPRAZOLE 40 MG TABLET PO SCH (09:00)
[2017-04-23] MEDS: SERTRALINE 100 MG TABLET PO SCH (09:00)
[2017-04-23] MEDS: DORZOLAMIDE/TIMOLOL OPH SOLN 10 ML BOTTLE BOTH EYES SCH ×2 (09:25→21:23)
[2017-04-23] MEDS ORDERED: POTASSIUM CHLORIDE RIDER 10 MEQ in PREMIX 1 EACH IV PRN (09:40)
[2017-04-23] MEDS ORDERED: SKIN HEALING OINT (AQUAPHOR) 50 GM TUBE TOP PRN (10:18)
[2017-04-23] MEDS ORDERED: ZINC OXIDE PASTE 113 GM TUBE TOP PRN (10:18)
[2017-04-23] MEDS: LEVOFLOXACIN INJ 250 MG in PREMIX 1 EACH IV SCH (10:52)
[2017-04-23] MEDS ORDERED: ALBUTEROL/IPRATROPIUM 3 ML NEB RESP TX PRN (10:55)
[2017-04-23] MEDS ORDERED: DEXTROSE 50% 25 GM/50 ML VIAL IV ONE (11:41)
[2017-04-23] MEDS: DEXTROSE 50% 25 GM/50 ML VIAL IV PRN (11:45)
[2017-04-23] MEDS: POTASSIUM CHLORIDE INJ 40 MEQ, SODIUM CHLORIDE 23.4% CONC INJ 38.5 MEQ in STERILE WATER... IV SCH (12:49)
[2017-04-23] MEDS ORDERED: ACETAMINOPHEN 325 MG TABLET PO PRN (16:14)
[2017-04-23] MEDS ORDERED: guaiFENesin 200 MG/10 ML UDCUP PO PRN (16:14)
[2017-04-23] MEDS ORDERED: MAGNESIUM HYDROXIDE SUSP 30 ML UDCUP PO PRN (16:14)
[2017-04-23] MEDS ORDERED: BISMUTH SUBSALICYLATE 30 ML/524 MG 240 ML/BOTTLE PO PRN (16:14)
[2017-04-23] MEDS ORDERED: diphenhydrAMINE 2% CREAM 28 GM TUBE TOP PRN (16:14)
[2017-04-23] MEDS ORDERED: LACTULOSE 20 GM/30 ML UDCUP PO PRN (16:14)
[2017-04-23] MEDS ORDERED: SODIUM PHOSPHATE ENEMA 133 ML BOTTLE RECTAL PRN (16:14)
[2017-04-23] MEDS ORDERED: ZALEPLON 5 MG CAPSULE PO PRN (16:14)
[2017-04-23] MEDS ORDERED: ERGOCALCIFEROL 50,000 UNIT CAPSULE PO SCH (16:30)
[2017-04-23] MEDS ORDERED: GLUTAMINE PO SCH (21:00)
[2017-04-23] MEDS ORDERED: CALCIUM HMB PO SCH (21:00)
[2017-04-23] MEDS ORDERED: ARGININE PO SCH (21:00)
[2017-04-23] MEDS: LATANOPROST 0.005% OPH SOLN 2.5 ML BOTTLE BOTH EYES SCH (21:23)
[2017-04-24] MEDS: SPIRONOLACTONE 25 MG TABLET PO SCH ×2 (00:01→20:43)
[2017-04-24] MEDS: CALCIUM (CARBONATE)/VITAMIN D 600 MG-400 UNIT TABLET PO SCH ×3 (00:01→20:43)
[2017-04-24] MEDS: CARVEDILOL 12.5 MG TABLET PO SCH ×3 (00:01→20:43)
[2017-04-24] MEDS: BISACODYL 5 MG TABLET PO SCH ×2 (00:02→20:43)
[2017-04-24] MEDS: INSULIN REGULAR 100 UNIT/ML SUBCUT SCH ×5 (00:02→21:19)
[2017-04-24] MEDS: TAMOXIFEN 10 MG TABLET PO SCH ×3 (00:06→20:44)
[2017-04-24] MEDS: DOCUSATE/SENNA 50-8.6 MG TABLET PO SCH ×2 (00:06→20:44)
[2017-04-24] MEDS: FAMOTIDINE 20 MG TABLET PO SCH ×2 (00:06→20:44)
[2017-04-24] MEDS: INSULIN GLARGINE 100 UNIT/ML SUBCUT SCH ×2 (00:08→21:19)
[2017-04-24] MEDS: POTASSIUM CHLORIDE INJ 40 MEQ, SODIUM CHLORIDE 23.4% CONC INJ 38.5 MEQ in STERILE WATER... IV SCH ×5 (02:18→23:55)
[2017-04-24] MEDS: INSULIN LISPRO 100 UNIT/ML SUBCUT SCH ×3 (07:44→16:08)
[2017-04-24] MEDS: DEXTROSE 50% 25 GM/50 ML VIAL IV PRN (08:23)
[2017-04-24] MEDS: amLODIPine 10 MG TABLET PO SCH (08:25)
[2017-04-24] MEDS: PANTOPRAZOLE 40 MG TABLET PO SCH (08:25)
[2017-04-24] MEDS: predniSONE 20 MG TABLET PO SCH (08:25)
[2017-04-24] MEDS: LISINOPRIL 20 MG TABLET PO SCH (08:25)
[2017-04-24] MEDS: SERTRALINE 100 MG TABLET PO SCH (08:26)
[2017-04-24] MEDS: DORZOLAMIDE/TIMOLOL OPH SOLN 10 ML BOTTLE BOTH EYES SCH ×2 (08:28→21:00)
[2017-04-24] MEDS ORDERED: FUROSEMIDE 40 MG TABLET PO SCH (09:00)
[2017-04-24] MEDS ORDERED: SODIUM CHLORIDE 0.9% 500 ML IV ONE (09:25)
[2017-04-24] MEDS: LEVOFLOXACIN INJ 250 MG in PREMIX 1 EACH IV SCH (09:46)
[2017-04-24] MEDS ORDERED: ceFAZolin 1,000 MG in SYRINGE 1 EACH IV ONE (14:51)
[2017-04-24] MEDS: cefTRIAXone 1,000 MG in SYRINGE 1 EACH IV SCH (16:09)
[2017-04-24] MEDS: POLYVINYL ALCOHOL 1.4% OPH SOLN 15 ML BOTTLE BOTH EYES PRN (21:00)
[2017-04-24] MEDS: LATANOPROST 0.005% OPH SOLN 2.5 ML BOTTLE BOTH EYES SCH (21:05)
[2017-04-25 07:25] LABS: Eosinophils # 0.1 10*3/uL (0.0-0.87); Eosinophils % 2.2 % (0.00-10.9); Hematocrit 29.4 VOL% (35.7-47.0); Hemoglobin 9.5 GM/DL (12.0-16.0); Immature Granulocytes % 1.3 %; Immature Granulocytes Absolute 0.07 #; Lymphocytes # 0.6 10*3/uL (1.4-4.0); Mean Corpuscular HGB Conc 32.3 GM/DL (32-36); Mean Corpuscular Hemoglobin 33 PG (27-34); Mean Platelet Volume 14.7 FL (9.6-12.0); Monocytes # 0.3 10*3/uL (0.11-0.8); Monocytes % 5.3 % (1.7-12.7); NRBC # 0.04 10*3/uL; Neutrophils # 4.5 10*3/uL (1.4-7.4); Neutrophils % 81.2 % (38.7-73.9); Platelet Count 53 T/CUMM (130-400); Red Blood Count 2.91 MC/CUMM (3.8-5.5); Red Cell Distribution Width 15.8 % (9.3-17.3); White Blood Count 5.5 T/CUMM (4-12)
[2017-04-25] MEDS: POTASSIUM CHLORIDE INJ 40 MEQ, SODIUM CHLORIDE 23.4% CONC INJ 38.5 MEQ in STERILE WATER... IV SCH (07:50)
[2017-04-25] MEDS: INSULIN LISPRO 100 UNIT/ML SUBCUT SCH ×3 (07:50→16:46)
[2017-04-25] MEDS: INSULIN REGULAR 100 UNIT/ML SUBCUT SCH ×4 (07:50→23:30)
[2017-04-25 07:51] LABS: Calcium 8.7 MG/DL (8.5-10.1); Magnesium 1.9 MG/DL (1.8-2.4); Osmolality,Calculated 305.4 MOS/KG (273-304); Potassium 5.6 MMOL/L (3.5-5.1)
[2017-04-25 07:54] LABS: Hypochromasia 1+
[2017-04-25 07:55] LABS: Microcytosis Slight; Platelet Estimate Decreased
[2017-04-25 08:02] LABS: INR 1.2; PT Patient Result 12.4 SECS
[2017-04-25] MEDS ORDERED: SODIUM POLYSTYRENE SULFATE 15 GM/60 ML BOTTLE PO ONE (09:00)
[2017-04-25] MEDS: CARVEDILOL 12.5 MG TABLET PO SCH ×2 (09:21→23:29)
[2017-04-25] MEDS: DORZOLAMIDE/TIMOLOL OPH SOLN 10 ML BOTTLE BOTH EYES SCH ×2 (09:21→22:23)
[2017-04-25] MEDS: predniSONE 20 MG TABLET PO SCH (09:21)
[2017-04-25] MEDS: amLODIPine 10 MG TABLET PO SCH (09:21)
[2017-04-25] MEDS: LISINOPRIL 20 MG TABLET PO SCH (09:21)
[2017-04-25] MEDS: CALCIUM (CARBONATE)/VITAMIN D 600 MG-400 UNIT TABLET PO SCH ×2 (09:21→23:29)
[2017-04-25] MEDS: TAMOXIFEN 10 MG TABLET PO SCH ×2 (09:21→23:31)
[2017-04-25] MEDS: PANTOPRAZOLE 40 MG TABLET PO SCH (09:22)
[2017-04-25] MEDS: SERTRALINE 100 MG TABLET PO SCH (09:22)
[2017-04-25] MEDS: SODIUM BICARB INJ 150 MEQ in STERILE WATER INJ 850 ML IV SCH ×2 (13:08→22:20)
[2017-04-25] MEDS: cefTRIAXone 1,000 MG in SYRINGE 1 EACH IV SCH (15:20)
[2017-04-25] MEDS: DEXTROSE 50% 25 GM/50 ML VIAL IV PRN (16:47)
[2017-04-25] MEDS: LATANOPROST 0.005% OPH SOLN 2.5 ML BOTTLE BOTH EYES SCH (21:01)
[2017-04-25] MEDS: POLYVINYL ALCOHOL 1.4% OPH SOLN 15 ML BOTTLE BOTH EYES PRN (22:18)
[2017-04-25] MEDS: SODIUM BICARB INJ 150 MEQ in STERILE WATER INJ 1,000 ML IV SCH (22:19)
[2017-04-25] MEDS: SPIRONOLACTONE 25 MG TABLET PO SCH (23:29)
[2017-04-25] MEDS: BISACODYL 5 MG TABLET PO SCH (23:29)
[2017-04-25] MEDS: INSULIN GLARGINE 100 UNIT/ML SUBCUT SCH (23:31)
[2017-04-25] MEDS: DOCUSATE/SENNA 50-8.6 MG TABLET PO SCH (23:31)
[2017-04-25] MEDS: FAMOTIDINE 20 MG TABLET PO SCH (23:31)
[2017-04-26 06:38] LABS: Basophils % 0.2 % (0.0-0.8); Eosinophils # 0.1 10*3/uL (0.0-0.87); Eosinophils % 1.5 % (0.00-10.9); Hematocrit 28.8 VOL% (35.7-47.0); Hemoglobin 9.6 GM/DL (12.0-16.0); Immature Granulocytes % 0.8 %; Immature Granulocytes Absolute 0.05 #; Lymphocytes # 0.6 10*3/uL (1.4-4.0); Lymphocytes % 8.9 % (21.3-54.2); Mean Corpuscular HGB Conc 33.3 GM/DL (32-36); Mean Corpuscular Hemoglobin 33 PG (27-34); Mean Corpuscular Volume 99.7 FL (87-102); Mean Platelet Volume 14.7 FL (9.6-12.0); Monocytes # 0.2 10*3/uL (0.11-0.8); Monocytes % 3.5 % (1.7-12.7); NRBC # 0.06 10*3/uL; Neutrophils # 5.6 10*3/uL (1.4-7.4); Neutrophils % 85.1 % (38.7-73.9); Platelet Count 60 T/CUMM (130-400); Red Blood Count 2.89 MC/CUMM (3.8-5.5); Red Cell Distribution Width 15.7 % (9.3-17.3); White Blood Count 6.5 T/CUMM (4-12)
[2017-04-26 07:04] LABS: Calcium 8.5 MG/DL (8.5-10.1); Osmolality,Calculated 307.3 MOS/KG (273-304); Potassium 4.7 MMOL/L (3.5-5.1)
[2017-04-26 07:22] LABS: Macrocytosis 1+; Polychromasia Slight; Target Cells Slight
[2017-04-26] MEDS: INSULIN LISPRO 100 UNIT/ML SUBCUT SCH ×3 (08:40→17:35)
[2017-04-26] MEDS: CALCIUM (CARBONATE)/VITAMIN D 600 MG-400 UNIT TABLET PO SCH ×2 (08:40→21:17)
[2017-04-26] MEDS: INSULIN REGULAR 100 UNIT/ML SUBCUT SCH ×4 (08:40→21:19)
[2017-04-26] MEDS: SODIUM BICARB INJ 150 MEQ in STERILE WATER INJ 1,000 ML IV SCH ×3 (08:40→23:14)
[2017-04-26] MEDS: amLODIPine 10 MG TABLET PO SCH (08:41)
[2017-04-26] MEDS: DORZOLAMIDE/TIMOLOL OPH SOLN 10 ML BOTTLE BOTH EYES SCH ×2 (08:41→21:17)
[2017-04-26] MEDS: predniSONE 20 MG TABLET PO SCH (08:41)
[2017-04-26] MEDS: LISINOPRIL 20 MG TABLET PO SCH (08:41)
[2017-04-26] MEDS: CARVEDILOL 12.5 MG TABLET PO SCH ×2 (08:41→21:17)
[2017-04-26] MEDS: TAMOXIFEN 10 MG TABLET PO SCH ×2 (08:41→21:18)
[2017-04-26] MEDS: PANTOPRAZOLE 40 MG TABLET PO SCH (08:42)
[2017-04-26] MEDS: SERTRALINE 100 MG TABLET PO SCH (08:42)
[2017-04-26 10:18] LABS: HIV Antigen/Antibody Result Nonreactive (Nonreactive); Hepatitis B Surface Ag Quant < 0.10 Index; Hepatitis B Surface Ag Result Negative (Negative); Hepatitis C Virus Ab Quant 0.04 Index; Hepatitis C Virus Ab Result Negative (Negative)
[2017-04-26] MEDS ORDERED: PROPOFOL 200 MG/20 ML VIAL IV ONE (13:43)
[2017-04-26] MEDS ORDERED: LIDOCAINE 1% 5 ML VIAL ONE (13:43)
[2017-04-26] MEDS ORDERED: ETOMIDATE 20 MG/10 ML VIAL IV ONE (13:43)
[2017-04-26] MEDS ORDERED: DEXTROSE 50% 25 GM/50 ML VIAL IV PRN (14:27)
[2017-04-26] MEDS ORDERED: GLUCAGON 1 MG VIAL IM PRN (14:27)
[2017-04-26] MEDS: cefTRIAXone 1,000 MG in SYRINGE 1 EACH IV SCH (15:03)
[2017-04-26] MEDS: LATANOPROST 0.005% OPH SOLN 2.5 ML BOTTLE BOTH EYES SCH (21:17)
[2017-04-26] MEDS: BISACODYL 5 MG TABLET PO SCH (21:17)
[2017-04-26] MEDS: DOCUSATE/SENNA 50-8.6 MG TABLET PO SCH (21:18)
[2017-04-26] MEDS: SPIRONOLACTONE 25 MG TABLET PO SCH (21:18)
[2017-04-26] MEDS: FAMOTIDINE 20 MG TABLET PO SCH (21:18)
[2017-04-26] MEDS: INSULIN GLARGINE 100 UNIT/ML SUBCUT SCH (21:34)
[2017-04-27] MEDS: INSULIN LISPRO 100 UNIT/ML SUBCUT SCH ×2 (09:10→12:01)
[2017-04-27] MEDS: INSULIN REGULAR 100 UNIT/ML SUBCUT SCH ×2 (09:10→12:00)
[2017-04-27 09:20] LABS: Basophils % 0.3 % (0.0-0.8); Eosinophils # 0.1 10*3/uL (0.0-0.87); Eosinophils % 1.8 % (0.00-10.9); Hematocrit 26.8 VOL% (35.7-47.0); Hemoglobin 8.9 GM/DL (12.0-16.0); Immature Granulocytes % 1.3 %; Immature Granulocytes Absolute 0.08 #; Lymphocytes # 0.7 10*3/uL (1.4-4.0); Lymphocytes % 10.9 % (21.3-54.2); Mean Corpuscular HGB Conc 33.2 GM/DL (32-36); Mean Corpuscular Hemoglobin 33 PG (27-34); Mean Corpuscular Volume 97.8 FL (87-102); Mean Platelet Volume 14.2 FL (9.6-12.0); Monocytes # 0.3 10*3/uL (0.11-0.8); Monocytes % 4.7 % (1.7-12.7); NRBC # 0.04 10*3/uL; Platelet Count 64 T/CUMM (130-400); Red Blood Count 2.74 MC/CUMM (3.8-5.5); Red Cell Distribution Width 15.9 % (9.3-17.3); White Blood Count 6.2 T/CUMM (4-12)
[2017-04-27 09:48] LABS: Platelet Estimate Decreased
[2017-04-27 09:49] LABS: Osmolality,Calculated 307.3 MOS/KG (273-304); Potassium 3.2 MMOL/L (3.5-5.1)
[2017-04-27 09:59] LABS: Magnesium 1.8 MG/DL (1.8-2.4); Phosphorous 2.7 MG/DL (2.5-4.9); Prealbumin 6.8 MG/DL (20-40)
[2017-04-27] MEDS: CARVEDILOL 12.5 MG TABLET PO SCH (10:42)
[2017-04-27] MEDS: TAMOXIFEN 10 MG TABLET PO SCH (10:42)
[2017-04-27] MEDS: DORZOLAMIDE/TIMOLOL OPH SOLN 10 ML BOTTLE BOTH EYES SCH (10:42)
[2017-04-27] MEDS: amLODIPine 10 MG TABLET PO SCH (10:42)
[2017-04-27] MEDS: predniSONE 20 MG TABLET PO SCH (10:42)
[2017-04-27] MEDS: CALCIUM (CARBONATE)/VITAMIN D 600 MG-400 UNIT TABLET PO SCH (10:42)
[2017-04-27] MEDS: SERTRALINE 100 MG TABLET PO SCH (10:43)
[2017-04-27] MEDS: SODIUM BICARB INJ 150 MEQ in STERILE WATER INJ 1,000 ML IV SCH (10:43)
[2017-04-27] MEDS: LISINOPRIL 20 MG TABLET PO SCH (10:43)
[2017-04-27] MEDS: PANTOPRAZOLE 40 MG TABLET PO SCH (10:43)
[2017-04-27 12:03] VITALS: BP 125/81
== END 2017-04-27 14:26 | DRG 682 ==
LOC: EDUNIT# → N.ED 08:15 → N.EDINP 09:35 → N.ICU 11:15 → N.5E 04-23 16:27
PROC: EGDWPEG (ICD-10-PCS; 2017-04-26 07:35)

== ENCOUNTER 2017-04-29 05:06 | Inpatient (IN) ==
[2017-04-29] MEDS: NOREPINEPHRINE 8 MG in SODIUM CHLORIDE 0.9% 242 ML IV SCH ×3 (05:08→23:09)
[2017-04-29] MEDS ORDERED: PIPERACILLIN/TAZOBACTAM 3,375 MG in SODIUM CHLORIDE 0.9% 100 ML IV STA (05:23)
[2017-04-29] MEDS ORDERED: DEXTROSE 50% 25 GM/50 ML SYRINGE IV ONE ×3 (05:30→06:34)
[2017-04-29] MEDS ORDERED: ETOMIDATE 20 MG/10 ML VIAL IV ONE ×2 (05:40→05:48)
[2017-04-29] MEDS ORDERED: VECURONIUM 10 MG VIAL IV ONE (05:49)
[2017-04-29] MEDS ORDERED: ROCURONIUM 100 MG/10 ML VIAL IV ONE (05:52)
[2017-04-29] MEDS ORDERED: PIPERACILLIN/TAZOBACTAM 3,375 MG VIAL IV ONE (06:04)
[2017-04-29] MEDS ORDERED: SODIUM CHLORIDE 0.9% 2,000 ML IV STA (06:27)
[2017-04-29 06:31] LABS: Calcium 8.8 MG/DL (8.5-10.1); Osmolality,Calculated 299.3 MOS/KG (273-304); Potassium 3.2 MMOL/L (3.5-5.1)
[2017-04-29] MEDS ORDERED: PROPOFOL 0 MG/0 ML BOTTLE IV ONE (06:37)
[2017-04-29] MEDS ORDERED: NOREPINEPHRINE 4 MG/4 ML VIAL IV ONE (06:51)
[2017-04-29 07:36] LABS: Apearance,Urine Slightly Hazy (Clear); Bacteria,Urine Occasional /HPF (Few); Bilirubin,Urine Negative (Negative); Blood, Urine Moderate mg/dL (Negative); Glucose,Urine (UA) 150 mg/dL (Negative); Hyaline Casts,Urine 6 /LPF (0-3); Ketones,Urine Negative (Negative); Mucus,Urine Occasional /LPF (Occasional); Nitrite,Urine Negative (Negative); Protein,Urine Negative; RBC,Urine 8 /HPF (0-4); Squamous Epithelial Cell,Urine Occasional /HPF (0-10); Urine Color Yellow (Yellow); Urine Specific Gravity 1.006 (1.001-1.035); Urine Urobilinogen < 2.0 EU/DL (0.2-1.0); WBC,Urine 19 /HPF (0-6)
[2017-04-29 07:41] LABS: Basophils % 0.1 % (0.0-0.8); Eosinophils % 0.1 % (0.00-10.9); Hematocrit 27.8 VOL% (35.7-47.0); Hemoglobin 9.3 GM/DL (12.0-16.0); Immature Granulocytes % 0.6 %; Immature Granulocytes Absolute 0.06 #; Lymphocytes # 0.6 10*3/uL (1.4-4.0); Lymphocytes % 6.7 % (21.3-54.2); Mean Corpuscular HGB Conc 33.5 GM/DL (32-36); Mean Corpuscular Hemoglobin 33 PG (27-34); Mean Corpuscular Volume 99.3 FL (87-102); Mean Platelet Volume 14.2 FL (9.6-12.0); Monocytes # 0.5 10*3/uL (0.11-0.8); Monocytes % 4.8 % (1.7-12.7); NRBC # 0.06 10*3/uL; Neutrophils # 8.3 10*3/uL (1.4-7.4); Neutrophils % 87.7 % (38.7-73.9); Red Cell Distribution Width 16.8 % (9.3-17.3); White Blood Count 9.4 T/CUMM (4-12)
[2017-04-29 07:43] LABS: Platelet Count 65 T/CUMM (130-400)
[2017-04-29 07:45] LABS: INR 1.1
[2017-04-29 07:52] LABS: ABG Base Excess 1.6 MMOL/L (-2.5-2.5); ABG HCO3 25.8 MMOL/L (20-26); ABG Oxygen Saturation 99.9 % (95-100); ABG PCO2 25.2 MM HG (35-48); ABG PH 7.556 (7.35-7.45)
[2017-04-29 07:53] LABS: Partial Thromboplastin Time 41.5 SECS (0-40)
[2017-04-29 08:04] LABS: Band Neutrophils 3 % (0-10); Giant Platelets Few; Hypochromasia 1+; Lymphocytes 4 % (20-55); Platelet Estimate Decreased; Segmented Neutrophils 87 % (50-85); Total Cells Counted 100
[2017-04-29 08:05] LABS: Microcytosis Slight
[2017-04-29] MEDS ORDERED: SODIUM CHLORIDE 0.9% 2,500 ML IV ONE (10:00)
[2017-04-29] MEDS ORDERED: MAGNESIUM SULF RIDER 4 GM in PREMIX 1 EACH IV PRN (10:00)
[2017-04-29] MEDS ORDERED: LIDOCAINE 1% 20 ML VIAL MISC INJ ONE (11:14)
[2017-04-29] MEDS ORDERED: LIDOCAINE 2% 20 ML VIAL RESP TX ONE (11:14)
[2017-04-29] MEDS: VANCOMYCIN INJ 1,250 MG in SODIUM CHLORIDE 0.45% 250 ML IV SCH (12:12)
[2017-04-29] MEDS: HYDROCORTISONE 100 MG VIAL IV SCH ×2 (12:12→23:15)
[2017-04-29 13:03] LABS: ABG Base Excess 0.4 MMOL/L (-2.5-2.5); ABG HCO3 24.8 MMOL/L (20-26); ABG Oxygen Saturation 99.7 % (95-100); ABG PH 7.552 (7.35-7.45); ABG TCO2 20.1 MMOL/L (23-27)
[2017-04-29 13:57] LABS: Lactic Acid 3.1 MMOL/L (0.4-2.0)
[2017-04-29] MEDS: PIPERACILLIN/TAZOBACTAM 3,375 MG in SODIUM CHLORIDE 0.9% 100 ML IV SCH ×2 (14:50→21:30)
[2017-04-29] MEDS: SODIUM CHLORIDE 0.9% 1,000 ML IV SCH (22:25)
[2017-04-30 04:44] LABS: Basophils % 0.1 % (0.0-0.8); Hematocrit 27.2 VOL% (35.7-47.0); Hemoglobin 9.1 GM/DL (12.0-16.0); Immature Granulocytes % 0.9 %; Immature Granulocytes Absolute 0.09 #; Lymphocytes # 0.2 10*3/uL (1.4-4.0); Lymphocytes % 2.1 % (21.3-54.2); Mean Corpuscular HGB Conc 33.5 GM/DL (32-36); Mean Corpuscular Hemoglobin 33 PG (27-34); Mean Corpuscular Volume 99.3 FL (87-102); Mean Platelet Volume 13.3 FL (9.6-12.0); Monocytes # 0.3 10*3/uL (0.11-0.8); Monocytes % 2.7 % (1.7-12.7); NRBC # 0.08 10*3/uL; Neutrophils # 9.4 10*3/uL (1.4-7.4); Neutrophils % 94.2 % (38.7-73.9); Red Blood Count 2.74 MC/CUMM (3.8-5.5); Red Cell Distribution Width 17.2 % (9.3-17.3)
[2017-04-30 04:48] LABS: ABG Base Excess -1.4 MMOL/L (-2.5-2.5); ABG HCO3 23.2 MMOL/L (20-26); ABG Oxygen Saturation 99.6 % (95-100); ABG PCO2 31.6 MM HG (35-48); ABG TCO2 20.1 MMOL/L (23-27); Allen Test Positive; Pt O2 Delivery Device Ventilator
[2017-04-30 04:51] LABS: Platelet Count 68 T/CUMM (130-400)
[2017-04-30] MEDS: NOREPINEPHRINE 8 MG in SODIUM CHLORIDE 0.9% 242 ML IV SCH ×2 (05:07→14:01)
[2017-04-30 05:12] LABS: Albumin 1.6 G/DL (3.4-5.0); Bilirubin,Total 0.5 MG/DL (0.2-1.0); Potassium 3.3 MMOL/L (3.5-5.1); Total Protein 3.9 G/DL (6.4-8.3)
[2017-04-30] MEDS: PIPERACILLIN/TAZOBACTAM 3,375 MG in SODIUM CHLORIDE 0.9% 100 ML IV SCH ×3 (05:14→22:13)
[2017-04-30] MEDS: SODIUM CHLORIDE 0.9% 1,000 ML IV SCH (05:14)
[2017-04-30 05:37] LABS: Giant Platelets Few; Hypochromasia 1+; Lymphocytes 2 % (20-55); Ovalocytes Slight; Platelet Estimate Decreased; Segmented Neutrophils 96 % (50-85); Total Cells Counted 100
[2017-04-30 05:38] LABS: Microcytosis Slight
[2017-04-30] MEDS: DEXTROSE 5% 1,000 ML IV SCH ×3 (07:00→22:18)
[2017-04-30] MEDS ORDERED: FLUCONAZOLE INJ 200 MG in PREMIX 1 EACH IV ONE (10:00)
[2017-04-30] MEDS: fentaNYL INJ 1,250 MCG in SODIUM CHLORIDE 0.9% 225 ML IV SCH ×2 (10:03→20:14)
[2017-04-30] MEDS: PANTOPRAZOLE 40 MG VIAL IV SCH (10:04)
[2017-04-30] MEDS: VANCOMYCIN INJ 1,250 MG in SODIUM CHLORIDE 0.45% 250 ML IV SCH (13:00)
[2017-04-30] MEDS: HYDROCORTISONE 100 MG VIAL IV SCH (13:47)
[2017-04-30] MEDS: PROPOFOL 1,000 MG/100 ML BOTTLE IV SCH ×3 (15:35→20:14)
[2017-04-30] MEDS: SODIUM HYPOCHLORITE 0.25% IRRIG 473 ML BOTTLE TOP SCH (18:12)
[2017-04-30] MEDS: COLLAGENASE OINT 30 GM TUBE TOP SCH (18:12)
[2017-05-01] MEDS: HYDROCORTISONE 100 MG VIAL IV SCH ×2 (00:28→11:41)
[2017-05-01] MEDS: NOREPINEPHRINE 8 MG in SODIUM CHLORIDE 0.9% 242 ML IV SCH ×3 (00:39→12:10)
[2017-05-01 03:57] LABS: Calcium 8.1 MG/DL (8.5-10.1); Magnesium 1.7 MG/DL (1.8-2.4); Osmolality,Calculated 304.3 MOS/KG (273-304); Potassium 3.3 MMOL/L (3.5-5.1)
[2017-05-01 04:14] LABS: Allen Test Positive; Pt O2 Delivery Device Ventilator
[2017-05-01 04:15] LABS: ABG Base Excess -5.6 MMOL/L (-2.5-2.5); ABG HCO3 18.6 MMOL/L (20-26); ABG Oxygen Saturation 97.7 % (95-100); ABG PCO2 31.1 MM HG (35-48); ABG PH 7.395 (7.35-7.45); ABG PO2 99.1 MM HG (80-95); ABG TCO2 19.6 MMOL/L (23-27)
[2017-05-01] MEDS: MAGNESIUM SULF RIDER 2 GM in PREMIX 1 EACH IV PRN (04:48)
[2017-05-01] MEDS: SODIUM CHLORIDE 0.45% 1,000 ML IV SCH (05:58)
[2017-05-01] MEDS ORDERED: POTASSIUM CHLORIDE RIDER 10 MEQ in PREMIX 1 EACH IV PRN (06:05)
[2017-05-01] MEDS: PIPERACILLIN/TAZOBACTAM 3,375 MG in SODIUM CHLORIDE 0.9% 100 ML IV SCH ×3 (06:14→22:18)
[2017-05-01] MEDS: POTASSIUM CHLORIDE RIDER 20 MEQ in PREMIX 1 EACH IV PRN ×2 (06:30→07:07)
[2017-05-01] MEDS: PANTOPRAZOLE 40 MG VIAL IV SCH (08:54)
[2017-05-01] MEDS: SODIUM HYPOCHLORITE 0.25% IRRIG 473 ML BOTTLE TOP SCH (08:57)
[2017-05-01] MEDS: COLLAGENASE OINT 30 GM TUBE TOP SCH (08:57)
[2017-05-01] MEDS: SKIN HEALING OINT (AQUAPHOR) 50 GM TUBE TOP PRN (09:30)
[2017-05-01] MEDS: PROPOFOL 1,000 MG/100 ML BOTTLE IV SCH (11:36)
[2017-05-01] MEDS: VANCOMYCIN INJ 1,250 MG in SODIUM CHLORIDE 0.45% 250 ML IV SCH (16:50)
[2017-05-02] MEDS: NOREPINEPHRINE 8 MG in SODIUM CHLORIDE 0.9% 242 ML IV SCH ×3 (00:21→04:44)
[2017-05-02] MEDS: HYDROCORTISONE 100 MG VIAL IV SCH ×2 (00:28→13:37)
[2017-05-02] MEDS: SODIUM CHLORIDE 0.45% 1,000 ML IV SCH (02:58)
[2017-05-02] MEDS: PIPERACILLIN/TAZOBACTAM 3,375 MG in SODIUM CHLORIDE 0.9% 100 ML IV SCH ×3 (05:42→21:07)
[2017-05-02 06:10] LABS: ABG Base Excess -11.1 MMOL/L (-2.5-2.5); ABG HCO3 15.5 MMOL/L (20-26); ABG Oxygen Saturation 97.9 % (95-100); ABG PCO2 26.4 MM HG (35-48); ABG PH 7.326 (7.35-7.45); ABG TCO2 12.9 MMOL/L (23-27); Allen Test Positive; Pt O2 Delivery Device Ventilator
[2017-05-02 08:17] LABS: Magnesium 1.4 MG/DL (1.8-2.4); Osmolality,Calculated 305.4 MOS/KG (273-304); Potassium 2.7 MMOL/L (3.5-5.1)
[2017-05-02 08:20] LABS: Calcium 5.3 MG/DL (8.5-10.1)
[2017-05-02] MEDS ORDERED: DEXTROSE 50% 25 GM/50 ML VIAL IV PRN (09:07)
[2017-05-02] MEDS ORDERED: GLUCAGON 1 MG VIAL IM PRN (09:07)
[2017-05-02] MEDS: MAGNESIUM SULF RIDER 2 GM in PREMIX 1 EACH IV PRN ×2 (09:30→11:24)
[2017-05-02] MEDS ORDERED: CALCIUM GLUCONATE 2,000 MG in SODIUM CHLORIDE 0.9% 100 ML IV ONE (09:30)
[2017-05-02] MEDS: POTASSIUM CHLORIDE RIDER 20 MEQ in PREMIX 1 EACH IV PRN ×3 (09:31→14:29)
[2017-05-02] MEDS: NOREPINEPHRINE IV SCH ×2 (09:35→18:13)
[2017-05-02] MEDS: SODIUM CHLORIDE 0.45% IV SCH ×2 (09:35→18:13)
[2017-05-02] MEDS: PANTOPRAZOLE 40 MG VIAL IV SCH (10:41)
[2017-05-02] MEDS: COLLAGENASE OINT 30 GM TUBE TOP SCH (13:23)
[2017-05-02] MEDS: SODIUM HYPOCHLORITE 0.25% IRRIG 473 ML BOTTLE TOP SCH (13:23)
[2017-05-02] MEDS: PROPOFOL 1,000 MG/100 ML BOTTLE IV SCH (13:24)
[2017-05-02] MEDS ORDERED: FLUCONAZOLE INJ 400 MG in PREMIX 1 EACH IV SCH (13:30)
[2017-05-02] MEDS: INSULIN LISPRO 100 UNIT/ML SUBCUT SCH ×2 (13:37→18:23)
[2017-05-02] MEDS ORDERED: TRACE ELEMENTS (5) 1 ML, MULTIVITAMIN INJ 10 ML in AMINO ACIDS/DEXT/LYTES 5-15% 1,000 ML IV SCH (14:00)
[2017-05-02] MEDS: FAT EMULSION 20% 250 ML IV SCH (15:45)
[2017-05-02] MEDS: DESITIN 4OZ/NYSTATIN 15 GRAM MIXTURE PASTE TOP SCH ×2 (16:22→21:07)
[2017-05-02] MEDS ORDERED: DEXTROSE 10% 1,000 ML IV PRN (17:00)
[2017-05-02] MEDS ORDERED: TRACE ELEMENTS (5) 1 ML, MULTIVITAMIN INJ 10 ML in AMINO ACIDS/DEXT/LYTES 5-15% 2,000 ML IV SCH (17:30)
[2017-05-02] MEDS: VANCOMYCIN INJ 1,250 MG in SODIUM CHLORIDE 0.45% 250 ML IV SCH (17:40)
[2017-05-03] MEDS: HYDROCORTISONE 100 MG VIAL IV SCH ×2 (00:03→14:21)
[2017-05-03] MEDS: INSULIN LISPRO 100 UNIT/ML SUBCUT SCH ×6 (00:04→20:09)
[2017-05-03] MEDS: SODIUM CHLORIDE 0.45% 1,000 ML IV SCH (00:07)
[2017-05-03] MEDS ORDERED: INSULIN GLARGINE 100 UNIT/ML SUBCUT ONE (04:00)
[2017-05-03 04:16] LABS: Basophils % 0.1 % (0.0-0.8); Hematocrit 23.6 VOL% (35.7-47.0); Immature Granulocytes % 0.9 %; Lymphocytes # 0.3 10*3/uL (1.4-4.0); Lymphocytes % 2.5 % (21.3-54.2); Mean Corpuscular HGB Conc 33.9 GM/DL (32-36); Mean Corpuscular Hemoglobin 34 PG (27-34); Mean Corpuscular Volume 101.3 FL (87-102); Mean Platelet Volume 12.3 FL (9.6-12.0); Monocytes # 0.4 10*3/uL (0.11-0.8); Monocytes % 3.2 % (1.7-12.7); NRBC # 0.25 10*3/uL; Neutrophils # 10.4 10*3/uL (1.4-7.4); Neutrophils % 93.3 % (38.7-73.9); Red Blood Count 2.33 MC/CUMM (3.8-5.5); Red Cell Distribution Width 17.2 % (9.3-17.3); White Blood Count 11.1 T/CUMM (4-12)
[2017-05-03 04:36] LABS: Allen Test Positive; Pt O2 Delivery Device Ventilator
[2017-05-03 04:41] LABS: ABG Base Excess -9.3 MMOL/L (-2.5-2.5); ABG HCO3 12.4 MMOL/L (20-26); ABG PH 7.423 (7.35-7.45)
[2017-05-03 04:41] LABS: Platelet Count 58 T/CUMM (130-400)
[2017-05-03 04:46] LABS: Band Neutrophils 1 % (0-10); Lymphocytes 2 % (20-55); Nucleated Red Blood Cells 3 (0-5); Platelet Estimate Decreased; Segmented Neutrophils 94 % (50-85); Total Cells Counted 100
[2017-05-03 04:47] LABS: Burr Cells Slight; Giant Platelets Few; Hypochromasia 1+; Microcytosis Slight; Ovalocytes Slight
[2017-05-03 04:49] LABS: ABG Oxygen Saturation 97.5 % (95-100)
[2017-05-03 04:50] LABS: ABG PCO2 19.4 MM HG (35-48); ABG PO2 93.2 MM HG (80-95)
[2017-05-03 05:03] LABS: Calcium 7.8 MG/DL (8.5-10.1); Magnesium 2.8 MG/DL (1.8-2.4); Osmolality,Calculated 303.8 MOS/KG (273-304); Potassium 4.5 MMOL/L (3.5-5.1)
[2017-05-03 05:43] LABS: Prealbumin 13.2 MG/DL (20-40)
[2017-05-03] MEDS: PIPERACILLIN/TAZOBACTAM 3,375 MG in SODIUM CHLORIDE 0.9% 100 ML IV SCH ×2 (05:47→18:39)
[2017-05-03 05:51] LABS: Magnesium 2.8 MG/DL (1.8-2.4)
[2017-05-03] MEDS: MORPHINE 2 MG/1 ML SYRINGE IV PRN ×2 (06:58→20:08)
[2017-05-03] MEDS: SODIUM BICARB INJ 100 MEQ in STERILE WATER INJ 1,000 ML IV SCH ×2 (08:40→18:26)
[2017-05-03] MEDS: PANTOPRAZOLE 40 MG VIAL IV SCH (08:40)
[2017-05-03] MEDS: INSULIN GLARGINE 100 UNIT/ML SUBCUT SCH ×2 (08:40→20:08)
[2017-05-03] MEDS: SODIUM CHLORIDE 0.45% IV SCH ×2 (10:17→18:45)
[2017-05-03] MEDS: NOREPINEPHRINE IV SCH ×2 (10:17→18:45)
[2017-05-03] MEDS: DESITIN 4OZ/NYSTATIN 15 GRAM MIXTURE PASTE TOP SCH ×2 (14:14→20:14)
[2017-05-03] MEDS: PROPOFOL 1,000 MG/100 ML BOTTLE IV SCH (14:14)
[2017-05-03] MEDS: SODIUM HYPOCHLORITE 0.25% IRRIG 473 ML BOTTLE TOP SCH (14:14)
[2017-05-03] MEDS: COLLAGENASE OINT 30 GM TUBE TOP SCH (14:14)
[2017-05-03] MEDS: FLUCONAZOLE INJ 200 MG in PREMIX 1 EACH IV SCH (14:21)
[2017-05-03] MEDS: ALBUMIN 25% 25 GM in PREMIX 1 EACH IV SCH ×2 (14:21→20:08)
[2017-05-03] MEDS: FAT EMULSION 20% 250 ML IV SCH (14:22)
[2017-05-03] MEDS ORDERED: COLESEVELAM 625 MG TABLET PO SCH (17:00)
[2017-05-03] MEDS: TRACE ELEMENTS (5) 1 ML, MULTIVITAMIN INJ 10 ML in AMINO ACIDS/DEXT/LYTES 5-15% 2,000 ML IV SCH (18:39)
[2017-05-03] MEDS ORDERED: INSULIN GLARGINE 100 UNIT/ML SUBCUT SCH ×2 (21:00)
[2017-05-04] MEDS: INSULIN LISPRO 100 UNIT/ML SUBCUT SCH ×6 (00:22→21:42)
[2017-05-04] MEDS: HYDROCORTISONE 100 MG VIAL IV SCH ×2 (00:23→14:05)
[2017-05-04] MEDS: SODIUM BICARB INJ 100 MEQ in STERILE WATER INJ 1,000 ML IV SCH ×4 (00:25→17:53)
[2017-05-04] MEDS: MORPHINE 2 MG/1 ML SYRINGE IV PRN ×2 (01:11→17:49)
[2017-05-04 04:33] LABS: ABG HCO3 19.3 MMOL/L (20-26); ABG Oxygen Saturation 77.9 % (95-100); ABG PCO2 34.2 MM HG (35-48); ABG PH 7.353 (7.35-7.45); ABG PO2 45.8 MM HG (80-95); ABG TCO2 18.4 MMOL/L (23-27)
[2017-05-04] MEDS: ALBUMIN 25% 25 GM in PREMIX 1 EACH IV SCH ×3 (04:39→21:42)
[2017-05-04 04:45] LABS: Basophils % 0.1 % (0.0-0.8); Hematocrit 20.5 VOL% (35.7-47.0); Hemoglobin 6.6 GM/DL (12.0-16.0); Immature Granulocytes % 1.9 %; Immature Granulocytes Absolute 0.18 #; Lymphocytes # 0.2 10*3/uL (1.4-4.0); Lymphocytes % 2.6 % (21.3-54.2); Mean Corpuscular HGB Conc 32.2 GM/DL (32-36); Mean Corpuscular Hemoglobin 33 PG (27-34); Mean Platelet Volume 11.3 FL (9.6-12.0); Monocytes # 0.3 10*3/uL (0.11-0.8); Monocytes % 2.7 % (1.7-12.7); NRBC # 0.18 10*3/uL; Neutrophils # 8.7 10*3/uL (1.4-7.4); Neutrophils % 92.7 % (38.7-73.9); Red Blood Count 2.01 MC/CUMM (3.8-5.5); Red Cell Distribution Width 16.9 % (9.3-17.3); White Blood Count 9.4 T/CUMM (4-12)
[2017-05-04 04:50] LABS: Platelet Count 33 T/CUMM (130-400)
[2017-05-04] MEDS ORDERED: SODIUM CHLORIDE 0.9% 1,000 ML IV PRN (04:59)
[2017-05-04 05:00] LABS: Blood Urea Nitrogen 53 MG/DL (7-18); Calcium 8.3 MG/DL (8.5-10.1); Glucose 143 MG/DL (74-106); Magnesium 2.6 MG/DL (1.8-2.4); Osmolality,Calculated 288.8 MOS/KG (273-304); Potassium 3.4 MMOL/L (3.5-5.1); Sodium 137 MMOL/L (136-145)
[2017-05-04 05:03] LABS: Lactic Acid 2.7 MMOL/L (0.4-2.0)
[2017-05-04 05:12] LABS: Band Neutrophils 1 % (0-10); Eosinophils 1 % (0-10); Hypochromasia 1+; Lymphocytes 2 % (20-55); Nucleated Red Blood Cells 2 (0-5); Segmented Neutrophils 94 % (50-85); Total Cells Counted 100
[2017-05-04 05:13] LABS: Macrocytosis 1+; Platelet Estimate Decreased
[2017-05-04 05:17] LABS: ABG Base Excess -5.8 MMOL/L (-2.5-2.5); ABG HCO3 19.5 MMOL/L (20-26); ABG PCO2 21.6 MM HG (35-48); ABG PH 7.508 (7.35-7.45); ABG TCO2 16.8 MMOL/L (23-27)
[2017-05-04] MEDS: PIPERACILLIN/TAZOBACTAM 3,375 MG in SODIUM CHLORIDE 0.9% 100 ML IV SCH ×2 (06:28→18:10)
[2017-05-04 08:28] LABS: ABG Base Excess -4.8 MMOL/L (-2.5-2.5); ABG HCO3 19.1 MMOL/L (20-26); ABG Oxygen Saturation 96.3 % (95-100); ABG PCO2 29.8 MM HG (35-48); ABG PH 7.425 (7.35-7.45); ABG PO2 88.3 MM HG (80-95)
[2017-05-04] MEDS: INSULIN GLARGINE 100 UNIT/ML SUBCUT SCH ×2 (09:43→21:41)
[2017-05-04] MEDS: PANTOPRAZOLE 40 MG VIAL IV SCH (09:43)
[2017-05-04] MEDS: SKIN HEALING OINT (AQUAPHOR) 50 GM TUBE TOP PRN (09:44)
[2017-05-04] MEDS: SODIUM HYPOCHLORITE 0.25% IRRIG 473 ML BOTTLE TOP SCH (09:44)
[2017-05-04] MEDS: DESITIN 4OZ/NYSTATIN 15 GRAM MIXTURE PASTE TOP SCH ×2 (09:46→21:43)
[2017-05-04] MEDS: COLLAGENASE OINT 30 GM TUBE TOP SCH (09:46)
[2017-05-04] MEDS: SODIUM CHLORIDE 0.45% IV SCH (10:24)
[2017-05-04] MEDS: NOREPINEPHRINE IV SCH (10:24)
[2017-05-04] MEDS: PROPOFOL 1,000 MG/100 ML BOTTLE IV SCH (13:59)
[2017-05-04] MEDS: FLUCONAZOLE INJ 200 MG in PREMIX 1 EACH IV SCH (14:05)
[2017-05-04] MEDS: FAT EMULSION 20% 250 ML IV SCH (14:14)
[2017-05-04] MEDS: TRACE ELEMENTS (5) 1 ML, MULTIVITAMIN INJ 10 ML in AMINO ACIDS/DEXT/LYTES 5-15% 2,000 ML IV SCH (17:18)
[2017-05-04 20:02] LABS: Hematocrit 30.2 VOL% (35.7-47.0)
[2017-05-04] MEDS: fentaNYL INJ 1,250 MCG in SODIUM CHLORIDE 0.9% 225 ML IV SCH (20:25)
[2017-05-05] MEDS: HYDROCORTISONE 100 MG VIAL IV SCH ×2 (00:15→13:24)
[2017-05-05] MEDS: INSULIN LISPRO 100 UNIT/ML SUBCUT SCH ×7 (00:15→23:57)
[2017-05-05] MEDS: POTASSIUM CHLORIDE RIDER 20 MEQ in PREMIX 1 EACH IV PRN ×5 (00:15→21:55)
[2017-05-05] MEDS: SODIUM BICARB INJ 100 MEQ in STERILE WATER INJ 1,000 ML IV SCH (04:32)
[2017-05-05 05:12] LABS: Basophils % 0.1 % (0.0-0.8); Hematocrit 31.6 VOL% (35.7-47.0); Hemoglobin 10.7 GM/DL (12.0-16.0); Immature Granulocytes % 1.9 %; Immature Granulocytes Absolute 0.18 #; Lymphocytes # 0.3 10*3/uL (1.4-4.0); Lymphocytes % 2.7 % (21.3-54.2); Mean Corpuscular HGB Conc 33.9 GM/DL (32-36); Mean Corpuscular Hemoglobin 31 PG (27-34); Mean Corpuscular Volume 91.6 FL (87-102); Mean Platelet Volume 12.8 FL (9.6-12.0); Monocytes # 0.3 10*3/uL (0.11-0.8); Monocytes % 3.3 % (1.7-12.7); NRBC # 0.15 10*3/uL; Neutrophils # 8.8 10*3/uL (1.4-7.4); Red Blood Count 3.45 MC/CUMM (3.8-5.5); Red Cell Distribution Width 17.2 % (9.3-17.3); White Blood Count 9.6 T/CUMM (4-12)
[2017-05-05 05:20] LABS: ABG HCO3 23.5 MMOL/L (20-26); ABG Oxygen Saturation 97.4 % (95-100); ABG PCO2 32.6 MM HG (35-48); ABG PH 7.444 (7.35-7.45); ABG PO2 83.2 MM HG (80-95); ABG TCO2 20.2 MMOL/L (23-27); Allen Test Positive; Pt O2 Delivery Device Ventilator
[2017-05-05 05:26] LABS: Platelet Count 18 T/CUMM (130-400)
[2017-05-05] MEDS ORDERED: SODIUM CHLORIDE 0.9% 1,000 ML IV PRN (05:46)
[2017-05-05 05:53] LABS: Calcium 7.7 MG/DL (8.5-10.1); Magnesium 2.3 MG/DL (1.8-2.4); Osmolality,Calculated 287.7 MOS/KG (273-304); Potassium 3.1 MMOL/L (3.5-5.1)
[2017-05-05 05:59] LABS: Anisocytosis 1+; Band Neutrophils 1 % (0-10); Lymphocytes 4 % (20-55); Metamyelocytes 1 %; Myelocytes 2 %; Nucleated Red Blood Cells 3 (0-5); Segmented Neutrophils 90 % (50-85); Total Cells Counted 100
[2017-05-05 06:00] LABS: Acanthocytes Few; Platelet Estimate Decreased
[2017-05-05] MEDS: PIPERACILLIN/TAZOBACTAM 3,375 MG in SODIUM CHLORIDE 0.9% 100 ML IV SCH ×2 (06:27→18:09)
[2017-05-05] MEDS: ALBUMIN 25% 25 GM in PREMIX 1 EACH IV SCH ×3 (06:28→23:07)
[2017-05-05 07:32] LABS: Free T4 (Free Thyroxine) 0.43 NG/DL (0.76-1.46); Thyroid Stimulating Hormone 1.72 uIU/ml (0.358-3.74)
[2017-05-05] MEDS: SODIUM CHLORIDE 0.45% IV SCH ×3 (09:02→21:40)
[2017-05-05] MEDS: NOREPINEPHRINE IV SCH (09:02)
[2017-05-05] MEDS: SODIUM HYPOCHLORITE 0.25% IRRIG 473 ML BOTTLE TOP SCH (09:05)
[2017-05-05] MEDS: INSULIN GLARGINE 100 UNIT/ML SUBCUT SCH ×2 (09:05→21:55)
[2017-05-05] MEDS: COLLAGENASE OINT 30 GM TUBE TOP SCH (09:07)
[2017-05-05] MEDS: DESITIN 4OZ/NYSTATIN 15 GRAM MIXTURE PASTE TOP SCH ×2 (09:07→21:56)
[2017-05-05] MEDS: SODIUM BICARB IV SCH ×2 (10:09→21:40)
[2017-05-05] MEDS: PANTOPRAZOLE 40 MG VIAL IV SCH (10:11)
[2017-05-05] MEDS: MORPHINE 2 MG/1 ML SYRINGE IV PRN (15:10)
[2017-05-05] MEDS: FLUCONAZOLE INJ 200 MG in PREMIX 1 EACH IV SCH (15:30)
[2017-05-05] MEDS: FAT EMULSION 20% 250 ML IV SCH (15:34)
[2017-05-05] MEDS: PROPOFOL 1,000 MG/100 ML BOTTLE IV SCH (16:27)
[2017-05-05] MEDS: TRACE ELEMENTS (5) 1 ML, MULTIVITAMIN INJ 10 ML in AMINO ACIDS/DEXT/LYTES 5-15% 2,000 ML IV SCH (17:57)
[2017-05-06] MEDS: HYDROCORTISONE 100 MG VIAL IV SCH ×2 (00:02→14:05)
[2017-05-06 03:25] LABS: ABG HCO3 21.7 MMOL/L (20-26); ABG Oxygen Saturation 93.9 % (95-100); ABG PCO2 33.2 MM HG (35-48); ABG PH 7.434 (7.35-7.45); ABG PO2 68.8 MM HG (80-95); ABG TCO2 22.8 MMOL/L (23-27); Allen Test Positive; Pt O2 Delivery Device Ventilator
[2017-05-06] MEDS: INSULIN LISPRO 100 UNIT/ML SUBCUT SCH ×5 (05:37→21:10)
[2017-05-06] MEDS: ALBUMIN 25% 25 GM in PREMIX 1 EACH IV SCH (05:37)
[2017-05-06] MEDS: PIPERACILLIN/TAZOBACTAM 3,375 MG in SODIUM CHLORIDE 0.9% 100 ML IV SCH ×2 (06:31→19:11)
[2017-05-06] MEDS: SODIUM CHLORIDE 0.45% IV SCH ×3 (07:10→19:05)
[2017-05-06] MEDS: SODIUM BICARB IV SCH ×2 (07:10→19:05)
[2017-05-06] MEDS: NOREPINEPHRINE IV SCH (10:18)
[2017-05-06] MEDS: PROPOFOL 1,000 MG/100 ML BOTTLE IV SCH ×2 (10:19→14:48)
[2017-05-06] MEDS: PANTOPRAZOLE 40 MG VIAL IV SCH (11:08)
[2017-05-06] MEDS: INSULIN GLARGINE 100 UNIT/ML SUBCUT SCH ×2 (11:08→21:10)
[2017-05-06] MEDS: COLLAGENASE OINT 30 GM TUBE TOP SCH (11:11)
[2017-05-06] MEDS: SODIUM HYPOCHLORITE 0.25% IRRIG 473 ML BOTTLE TOP SCH (11:11)
[2017-05-06] MEDS: DESITIN 4OZ/NYSTATIN 15 GRAM MIXTURE PASTE TOP SCH ×2 (11:12→21:10)
[2017-05-06] MEDS: FAT EMULSION 20% 250 ML IV SCH (15:15)
[2017-05-06] MEDS: FLUCONAZOLE INJ 200 MG in PREMIX 1 EACH IV SCH (16:29)
[2017-05-06] MEDS: TRACE ELEMENTS (5) 1 ML, MULTIVITAMIN INJ 10 ML in AMINO ACIDS/DEXT/LYTES 5-15% 2,000 ML IV SCH (18:47)
[2017-05-07] MEDS: HYDROCORTISONE 100 MG VIAL IV SCH ×3 (00:31→23:35)
[2017-05-07] MEDS: INSULIN LISPRO 100 UNIT/ML SUBCUT SCH ×7 (00:31→23:35)
[2017-05-07] MEDS: SODIUM BICARB IV SCH ×2 (02:01→04:16)
[2017-05-07] MEDS: SODIUM CHLORIDE 0.45% IV SCH ×3 (02:01→08:53)
[2017-05-07 03:38] LABS: ABG Base Excess -0.2 MMOL/L (-2.5-2.5); ABG HCO3 22.6 MMOL/L (20-26); ABG Oxygen Saturation 96.3 % (95-100); ABG PCO2 31.1 MM HG (35-48); ABG PH 7.479 (7.35-7.45); ABG PO2 83.7 MM HG (80-95); ABG TCO2 23.5 MMOL/L (23-27); Allen Test Positive; Pt O2 Delivery Device Ventilator
[2017-05-07 05:31] LABS: Basophils % 0.2 % (0.0-0.8); Hematocrit 31.5 VOL% (35.7-47.0); Hemoglobin 11.1 GM/DL (12.0-16.0); Immature Granulocytes % 1.5 %; Immature Granulocytes Absolute 0.18 #; Lymphocytes # 0.1 10*3/uL (1.4-4.0); Lymphocytes % 1.1 % (21.3-54.2); Mean Corpuscular HGB Conc 35.2 GM/DL (32-36); Mean Corpuscular Hemoglobin 32 PG (27-34); Mean Corpuscular Volume 91.6 FL (87-102); Mean Platelet Volume 13.4 FL (9.6-12.0); Monocytes # 0.3 10*3/uL (0.11-0.8); Monocytes % 2.5 % (1.7-12.7); NRBC # 0.05 10*3/uL; Neutrophils # 11.2 10*3/uL (1.4-7.4); Neutrophils % 94.7 % (38.7-73.9); Platelet Count 57 T/CUMM (130-400); Red Blood Count 3.44 MC/CUMM (3.8-5.5); White Blood Count 11.8 T/CUMM (4-12)
[2017-05-07 06:04] LABS: Calcium 8.4 MG/DL (8.5-10.1); Osmolality,Calculated 293.3 MOS/KG (273-304); Potassium 3.2 MMOL/L (3.5-5.1)
[2017-05-07 06:07] LABS: Magnesium 2.2 MG/DL (1.8-2.4)
[2017-05-07] MEDS: PIPERACILLIN/TAZOBACTAM 3,375 MG in SODIUM CHLORIDE 0.9% 100 ML IV SCH ×3 (06:07→21:25)
[2017-05-07] MEDS: PROPOFOL 1,000 MG/100 ML BOTTLE IV SCH ×2 (06:15→16:45)
[2017-05-07] MEDS: POTASSIUM CHLORIDE RIDER 20 MEQ in PREMIX 1 EACH IV PRN ×2 (06:29→09:07)
[2017-05-07 06:51] LABS: Anisocytosis Slight; Band Neutrophils 2 % (0-10); Lymphocytes 2 % (20-55); Macrocytosis Slight; Nucleated Red Blood Cells 2 (0-5); Platelet Estimate Decreased; Segmented Neutrophils 95 % (50-85); Total Cells Counted 100
[2017-05-07] MEDS: INSULIN GLARGINE 100 UNIT/ML SUBCUT SCH ×2 (08:53→21:14)
[2017-05-07] MEDS: SODIUM HYPOCHLORITE 0.25% IRRIG 473 ML BOTTLE TOP SCH (08:53)
[2017-05-07] MEDS: PANTOPRAZOLE 40 MG VIAL IV SCH (08:53)
[2017-05-07] MEDS: NOREPINEPHRINE IV SCH (08:53)
[2017-05-07] MEDS: DESITIN 4OZ/NYSTATIN 15 GRAM MIXTURE PASTE TOP SCH ×2 (08:54→21:14)
[2017-05-07] MEDS: COLLAGENASE OINT 30 GM TUBE TOP SCH (08:54)
[2017-05-07] MEDS ORDERED: VANCOMYCIN INJ 1,250 MG in SODIUM CHLORIDE 0.45% 250 ML IV PRN (08:56)
[2017-05-07] MEDS: FAT EMULSION 20% 250 ML IV SCH (13:50)
[2017-05-07] MEDS: FLUCONAZOLE INJ 200 MG in PREMIX 1 EACH IV SCH (16:04)
[2017-05-07] MEDS: TRACE ELEMENTS (5) 1 ML, MULTIVITAMIN INJ 10 ML in AMINO ACIDS/DEXT/LYTES 5-15% 2,000 ML IV SCH (16:56)
[2017-05-07] MEDS ORDERED: VANCOMYCIN INJ 1,250 MG in SODIUM CHLORIDE 0.45% 250 ML IV ONE (20:00)
[2017-05-08] MEDS: INSULIN LISPRO 100 UNIT/ML SUBCUT SCH ×6 (03:46→23:46)
[2017-05-08 04:28] LABS: ABG HCO3 25.2 MMOL/L (20-26); ABG Oxygen Saturation 92.6 % (95-100); ABG PCO2 31.6 MM HG (35-48); ABG PH 7.485 (7.35-7.45); ABG PO2 61.9 MM HG (80-95); ABG TCO2 21.2 MMOL/L (23-27); Allen Test Positive; Pt O2 Delivery Device Ventilator
[2017-05-08] MEDS: PIPERACILLIN/TAZOBACTAM 3,375 MG in SODIUM CHLORIDE 0.9% 100 ML IV SCH ×3 (07:00→23:35)
[2017-05-08 08:40] LABS: Basophils % 0.2 % (0.0-0.8); Hemoglobin 10.9 GM/DL (12.0-16.0); Immature Granulocytes % 1.5 %; Immature Granulocytes Absolute 0.21 #; Lymphocytes # 0.2 10*3/uL (1.4-4.0); Lymphocytes % 1.7 % (21.3-54.2); Mean Corpuscular HGB Conc 34.1 GM/DL (32-36); Mean Corpuscular Hemoglobin 32 PG (27-34); Mean Corpuscular Volume 92.8 FL (87-102); Monocytes # 0.4 10*3/uL (0.11-0.8); Monocytes % 2.6 % (1.7-12.7); Neutrophils # 13.1 10*3/uL (1.4-7.4); Red Blood Count 3.45 MC/CUMM (3.8-5.5); Red Cell Distribution Width 18.3 % (9.3-17.3); White Blood Count 13.9 T/CUMM (4-12)
[2017-05-08 08:41] LABS: Platelet Count 50 T/CUMM (130-400)
[2017-05-08] MEDS ORDERED: FUROSEMIDE 40 MG/4 ML VIAL IV SCH (09:00)
[2017-05-08 09:08] LABS: Band Neutrophils 2 % (0-10); Hypochromasia 1+; Lymphocytes 2 % (20-55); Segmented Neutrophils 94 % (50-85); Total Cells Counted 100
[2017-05-08 09:09] LABS: Macrocytosis Slight
[2017-05-08 09:10] LABS: Platelet Estimate Decreased
[2017-05-08 09:14] LABS: Albumin 1.8 G/DL (3.4-5.0); Bilirubin,Total 0.7 MG/DL (0.2-1.0); Calcium 8.7 MG/DL (8.5-10.1); Osmolality,Calculated 293.4 MOS/KG (273-304); Potassium 3.9 MMOL/L (3.5-5.1); Total Protein 3.4 G/DL (6.4-8.3)
[2017-05-08] MEDS: PANTOPRAZOLE 40 MG VIAL IV SCH (09:30)
[2017-05-08] MEDS: INSULIN GLARGINE 100 UNIT/ML SUBCUT SCH ×2 (09:31→20:35)
[2017-05-08] MEDS: NOREPINEPHRINE IV SCH (09:31)
[2017-05-08] MEDS: SODIUM CHLORIDE 0.45% IV SCH (09:31)
[2017-05-08] MEDS: SODIUM HYPOCHLORITE 0.25% IRRIG 473 ML BOTTLE TOP SCH (10:55)
[2017-05-08] MEDS: COLLAGENASE OINT 30 GM TUBE TOP SCH (10:55)
[2017-05-08] MEDS: SKIN HEALING OINT (AQUAPHOR) 50 GM TUBE TOP PRN (10:55)
[2017-05-08] MEDS: DESITIN 4OZ/NYSTATIN 15 GRAM MIXTURE PASTE TOP SCH ×2 (11:53→21:30)
[2017-05-08] MEDS: HYDROCORTISONE 100 MG VIAL IV SCH ×2 (12:10→23:40)
[2017-05-08] MEDS: FAT EMULSION 20% 250 ML IV SCH (14:31)
[2017-05-08] MEDS: PROPOFOL 1,000 MG/100 ML BOTTLE IV SCH (15:41)
[2017-05-08] MEDS: FLUCONAZOLE INJ 200 MG in PREMIX 1 EACH IV SCH (17:03)
[2017-05-08] MEDS: TRACE ELEMENTS (5) 1 ML, MULTIVITAMIN INJ 10 ML in AMINO ACIDS/DEXT/LYTES 5-15% 2,000 ML IV SCH (17:05)
[2017-05-09 03:12] LABS: ABG Base Excess 0.6 MMOL/L (-2.5-2.5); ABG HCO3 24.9 MMOL/L (20-26); ABG Oxygen Saturation 92.2 % (95-100); ABG PCO2 30.8 MM HG (35-48); ABG PH 7.488 (7.35-7.45); ABG PO2 61.4 MM HG (80-95); ABG TCO2 21.1 MMOL/L (23-27); Allen Test Positive; Pt O2 Delivery Device Ventilator
[2017-05-09] MEDS: INSULIN LISPRO 100 UNIT/ML SUBCUT SCH ×5 (03:57→20:13)
[2017-05-09] MEDS: PROPOFOL 1,000 MG/100 ML BOTTLE IV SCH ×2 (04:16→17:08)
[2017-05-09 04:28] LABS: Basophils % 0.1 % (0.0-0.8); Eosinophils % 0.1 % (0.00-10.9); Hematocrit 29.6 VOL% (35.7-47.0); Hemoglobin 9.7 GM/DL (12.0-16.0); Immature Granulocytes % 1.6 %; Immature Granulocytes Absolute 0.24 #; Lymphocytes # 0.2 10*3/uL (1.4-4.0); Lymphocytes % 1.2 % (21.3-54.2); Mean Corpuscular HGB Conc 32.8 GM/DL (32-36); Mean Corpuscular Hemoglobin 32 PG (27-34); Mean Corpuscular Volume 96.1 FL (87-102); Mean Platelet Volume 14.4 FL (9.6-12.0); Monocytes # 0.5 10*3/uL (0.11-0.8); Monocytes % 3.2 % (1.7-12.7); NRBC # 0.04 10*3/uL; Neutrophils # 13.7 10*3/uL (1.4-7.4); Neutrophils % 93.8 % (38.7-73.9); Platelet Count 44 T/CUMM (130-400); Red Blood Count 3.08 MC/CUMM (3.8-5.5); Red Cell Distribution Width 18.2 % (9.3-17.3); White Blood Count 14.6 T/CUMM (4-12)
[2017-05-09 04:45] LABS: Albumin 1.6 G/DL (3.4-5.0); Bilirubin,Total 0.5 MG/DL (0.2-1.0); Calcium 9.2 MG/DL (8.5-10.1); Osmolality,Calculated 299.1 MOS/KG (273-304); Potassium 3.6 MMOL/L (3.5-5.1); Total Protein 3.1 G/DL (6.4-8.3)
[2017-05-09 04:51] LABS: Band Neutrophils 2 % (0-10); Lymphocytes 3 % (20-55); Segmented Neutrophils 93 % (50-85); Total Cells Counted 100
[2017-05-09 04:52] LABS: Macrocytosis 1+; Platelet Estimate Decreased
[2017-05-09] MEDS: FUROSEMIDE 40 MG/4 ML VIAL IV SCH ×2 (09:49→16:35)
[2017-05-09] MEDS: PANTOPRAZOLE 40 MG VIAL IV SCH (09:49)
[2017-05-09] MEDS: INSULIN GLARGINE 100 UNIT/ML SUBCUT SCH ×2 (09:50→20:13)
[2017-05-09] MEDS: PIPERACILLIN/TAZOBACTAM 3,375 MG in SODIUM CHLORIDE 0.9% 100 ML IV SCH ×3 (09:51→21:40)
[2017-05-09] MEDS: HYDROCORTISONE 100 MG VIAL IV SCH (13:16)
[2017-05-09] MEDS: COLLAGENASE OINT 30 GM TUBE TOP SCH (13:16)
[2017-05-09] MEDS: SKIN HEALING OINT (AQUAPHOR) 50 GM TUBE TOP PRN (13:16)
[2017-05-09] MEDS: DESITIN 4OZ/NYSTATIN 15 GRAM MIXTURE PASTE TOP SCH ×2 (13:16→20:14)
[2017-05-09] MEDS: SODIUM HYPOCHLORITE 0.25% IRRIG 473 ML BOTTLE TOP SCH (13:16)
[2017-05-09] MEDS: FAT EMULSION 20% 250 ML IV SCH (14:16)
[2017-05-09] MEDS: POTASSIUM CHLORIDE RIDER 20 MEQ in PREMIX 1 EACH IV PRN (14:47)
[2017-05-09] MEDS ORDERED: FLUCONAZOLE INJ 400 MG in PREMIX 1 EACH IV SCH (16:30)
[2017-05-09] MEDS: TRACE ELEMENTS (5) 1 ML, MULTIVITAMIN INJ 10 ML in AMINO ACIDS/DEXT/LYTES 5-15% 2,000 ML IV SCH (17:08)
[2017-05-09] MEDS ORDERED: VANCOMYCIN INJ 1,250 MG in SODIUM CHLORIDE 0.45% 250 ML IV SCH (20:00)
[2017-05-10] MEDS: INSULIN LISPRO 100 UNIT/ML SUBCUT SCH ×4 (00:59→12:50)
[2017-05-10] MEDS: HYDROCORTISONE 100 MG VIAL IV SCH ×2 (00:59→12:50)
[2017-05-10 05:39] LABS: Basophils % 0.1 % (0.0-0.8); Eosinophils % 0.1 % (0.00-10.9); Hematocrit 30.7 VOL% (35.7-47.0); Hemoglobin 10.4 GM/DL (12.0-16.0); Immature Granulocytes % 1.9 %; Immature Granulocytes Absolute 0.28 #; Lymphocytes # 0.2 10*3/uL (1.4-4.0); Mean Corpuscular HGB Conc 33.9 GM/DL (32-36); Mean Corpuscular Hemoglobin 32 PG (27-34); Mean Corpuscular Volume 93.9 FL (87-102); Mean Platelet Volume 14.2 FL (9.6-12.0); Monocytes # 0.5 10*3/uL (0.11-0.8); Monocytes % 3.3 % (1.7-12.7); NRBC # 0.07 10*3/uL; Neutrophils # 13.8 10*3/uL (1.4-7.4); Neutrophils % 93.6 % (38.7-73.9); Platelet Count 44 T/CUMM (130-400); Red Blood Count 3.27 MC/CUMM (3.8-5.5); White Blood Count 14.7 T/CUMM (4-12)
[2017-05-10] MEDS: PIPERACILLIN/TAZOBACTAM 3,375 MG in SODIUM CHLORIDE 0.9% 100 ML IV SCH (05:59)
[2017-05-10 06:01] LABS: Giant Platelets Few; Hypochromasia 1+; Lymphocytes 1 % (20-55); Macrocytosis Slight; Platelet Estimate Decreased; Segmented Neutrophils 93 % (50-85); Total Cells Counted 100
[2017-05-10 06:05] LABS: Albumin 1.6 G/DL (3.4-5.0); Calcium 9.8 MG/DL (8.5-10.1); Magnesium 2.1 MG/DL (1.8-2.4); Osmolality,Calculated 305.1 MOS/KG (273-304); Potassium 3.7 MMOL/L (3.5-5.1); Total Protein 3.4 G/DL (6.4-8.3)
[2017-05-10] MEDS: PROPOFOL 1,000 MG/100 ML BOTTLE IV SCH (06:27)
[2017-05-10] MEDS: PANTOPRAZOLE 40 MG VIAL IV SCH (08:26)
[2017-05-10] MEDS: INSULIN GLARGINE 100 UNIT/ML SUBCUT SCH (08:26)
[2017-05-10] MEDS: FUROSEMIDE 40 MG/4 ML VIAL IV SCH (08:27)
[2017-05-10] MEDS: COLLAGENASE OINT 30 GM TUBE TOP SCH (11:03)
[2017-05-10] MEDS: DESITIN 4OZ/NYSTATIN 15 GRAM MIXTURE PASTE TOP SCH (11:03)
[2017-05-10] MEDS: SODIUM HYPOCHLORITE 0.25% IRRIG 473 ML BOTTLE TOP SCH (11:03)
[2017-05-10 13:52] VITALS: BP 131/56
== END 2017-05-10 13:10 | DRG 870 ==
LOC: EDBD → EDUNIT# → N.ED 05:06 → N.EDINP 09:21 → SUATTDRO 09:21 → N.ICU 09:46
PROVIDERS: ATTEND Internal Medicine Geriatric Medicine